=== PATIENT | male | born 1965 | race Caucasian/White ===

== ENCOUNTER → 2016-10-14 | Outpatient (CLI) | payer BC ==
[~2016-10-14] VITALS: Ht 170.2 cm; Wt 148.0 kg
[~2016-10-14] MED LIST: CEPH500C PO; COEN75CA PO; DXY100 PO; LBT/100 PO; MULTTAB58 PO; OMEG12006 PO; SULF800T23 PO; ZFRODT4HP SL
[2016-10-14 13:42] VITALS: BP 165/93; PULSE 73; Ht 170.2 cm; Wt 148.0 kg
== END | disposition home or self-care (01) ==
LOC: C.NEUR 13:10
PROVIDERS: ATTEND Internal Medicine Pulmonary Disease
DX: G47.33 Obstructive sleep apnea (adult) (pediatric) (principal); E66.9 Obesity, unspecified; G47.19 Other hypersomnia; R60.9 Edema, unspecified; K42.9 Umbilical hernia without obstruction or gangrene

== ENCOUNTER 2016-12-08 19:25 | Emergency (ER) | payer BC ==
[~2016-12-08] VITALS: Ht 167.6 cm; Wt 146.2 kg
[~2016-12-08 19:25] MED LIST changes: -CEPH500C PO; -DXY100 PO; -SULF800T23 PO; -ZFRODT4HP SL
[2016-12-08 19:30] VITALS: TEMP 38
[2016-12-08] MEDS ORDERED: IBUPROFEN 600 MG TAB PO STA (19:41)
[2016-12-08] MEDS ORDERED: ACETAMINOPHEN 325 MG TAB PO ONE (19:45)
[2016-12-08 19:59] VITALS: Ht 167.6 cm; Wt 146.2 kg
[2016-12-08] MEDS ORDERED: ONDANSETRON INJ 2 MG/ML 2 ML VIAL IV STA (20:03)
[2016-12-08 20:04] LABS: BASO % 0.1 %; BASO ABS # 0.01 K/uL (0-0.2); COMPLETE YES; EOS % 0.1 %; HEMATOCRIT 38.8 % (42-52); IG% 0.3 %; LYMPH % 9.8 %; LYMPH ABS # 1.27 K/uL (1.2-3.4); MEAN CELL VOLUME 87.2 fL (80-100); MEAN CORPUSCULAR HGB CONC 35.6 g/dl (32-36); MEAN PLATELET VOLUME 9.7 fL (7.4-10.4); MONO % 6.1 %; NEUT % 83.6 %; PLATELET COUNT 154 K/uL (130-400); RED BLOOD COUNT 4.45 M/uL (4.7-6.1); WHITE BLOOD COUNT 13.01 K/uL (4.8-10.8)
--- NOTE | 2016-12-08 20:05 | DIAGNOSTIC IMAGING REPORT ---
CHEST ONE VIEW PORTABLE CLINICAL HISTORY: Sepsis COMPARISON STUDY: 01/14/2013 FINDINGS: The cardiac and mediastinal contours are normal. There is no evidence of focal pulmonary consolidation. There is no evidence of failure. No pleural effusions are visualized.[ Increased density at the lung bases is felt to be secondary to overlying soft tissue attenuation. IMPRESSION: No active disease in the chest. Electronically signed by: Justin Gil M.D. 12/08/2016 8:03 PM Dictated Date/Time: 12/08/2016 8:03 PM
[2016-12-08] MEDS ORDERED: DXY100 PO (20:09)
[2016-12-08] MEDS ORDERED: ZFRODT4HP SL (20:09)
[2016-12-08 20:14] LABS: PARTIAL THROMBOPLASTIN RATIO 1.1; PROTHROMBIN TIME (PATIENT) 11.2 SECONDS (9.0-12.0)
[2016-12-08 20:26] LABS: CALCIUM 9.1 mg/dl (8.5-10.1); CREATININE 0.97 mg/dl (0.60-1.40); POTASSIUM 3.7 mmol/L (3.5-5.1)
[2016-12-08] MEDS ORDERED: SULFAMETHOXAZOLE/TRIMETHOPRIM DS 800/160MG TAB PO STA (20:28)
[2016-12-08] MEDS ORDERED: CEFAZOLIN SOD 1000MG/55 ML D5W IV STA (20:28)
[2016-12-08] MEDS ORDERED: SULF800T23 PO (21:01)
[2016-12-08] MEDS ORDERED: CEPH500C PO (21:01)
[2016-12-08] MEDS ORDERED: ONDANSETRON HOME PACK 4MG OD TAB PO ONE (21:15)
[2016-12-08 21:24] VITALS: BP 143/75; PULSE 86; O2SAT 94
--- NOTE | 2016-12-08 23:40 | EMERGENCY ROOM VISIT NOTE ---
History Report prepared by Yolie: Genevieve Chi Under the Supervision of: Dr. Abraham Prasad M.D. First contact with patient: 19:35 Chief Complaint: INFECTION Stated Complaint: RED SWOLLEN HOT LEG, FEVER- RIGHT History of Present Illness The patient is a 51 year old male who presents to the Emergency Room with complaints of a worsening infection of the right lower leg for the past 2 days. He does not remember bumping or injuring his leg. He did not notice any bug bites of his leg. The patient reports redness, warmth, and swelling to the right lower leg. He has had a fever. Today his temperature was 102.6. He is also feeling nauseated and took an antiemetic [employer]. He took 4 aspirin today for pain. The patient rates his current pain as an 8/10 in severity. He went to his PCP today for evaluation of his symptoms. He had an US that was negative for DVT , and he was sent to the ED for further evaluation. The patient denies vomiting , chest pain, and shortness of breath. He has a history of cellulitis in the right leg and was hospitalized for this issue in the past. He states his current symptoms are not as bad as his previous episode and that previously he had cellulitis all the way up into his thigh. Source of History: patient Onset: 2 days ago Position: leg (right) Symptom Intensity: 8/10 Quality: other (infection) Timing: worsening Modifying Factors (Relieving): anti-emetics, other (aspirin) Associated Symptoms: + fevers, + nausea, No SOB, No chest pain, No vomiting Note: The patient reports redness, warmth, and swelling to the right lower leg. Review of Systems See HPI for pertinent positives & negatives. A total of 10 systems reviewed and were otherwise negative. Past Medical & Surgical Medical Problems: (1) hand surgery (2) Hypertension (3) Sleep apnea Family History No pertinent history stated. Social History Smoking Status: Never Smoker Alcohol Use: none Housing Status: lives with family Occupation Status: employed Current/Historical Medications Scheduled Cephalexin Monohydrate (Keflex), 500 MG PO TID Coenzyme Q10 (Ubidecarenone) (Co Q-10), 1 CAP PO BID Doxycycline Hyclate (Doxycycline Hyclate), 100 MG PO BID Labetalol Hcl (Normodyne), 200 MG PO BID Multiple Vitamin (Multivitamin), 1 TAB PO BID Sulfa/Trimethoprim (Bactrim Ds 800MG/160MG), 1 TAB PO BID Scheduled PRN Ondansetron (Ondansetron Odt), 1 TAB SL Q8 PRN for Nausea or Vomiting Allergies Coded Allergies: Oxycodone (Unverified Allergy, Unknown, DIARRHEA,VOMITING,, 12/08/16) Physical Exam Vital Signs Date Time Temp Pulse Resp B/P Pulse Ox O2 Delivery O2 Flow Rate FiO2 12/08/16 21:24 86 18 143/75 94 Room Air 12/08/16 19:30 38.0 92 16 168/87 93 Room Air Physical Exam Constitutional: Vital signs reviewed. Eyes: Pupils are equal round reactive to light. Conjunctiva are noninjected. ENT: Pharynx is clear without erythema or exudate. Mucous membranes are moist. Neck supple without meningeal signs. Respiratory: Clear to auscultation bilaterally. Breath sounds are equal bilaterally. Cardiovascular: Regular rate and rhythm. No rubs or gallops. GI: Soft, nondistended and nontender. Bowel sounds are present. Musculoskeletal: Right leg has erythema and increased warmth to the anterior right lower leg below the knee, does not involve the knee or the ankle. No fluctuance or induration. Integumentary: As above. Neurological: The patient is awake and alert. No focal deficits. Psychiatric: Normal affect. Medical Decision & Procedures ER Provider Diagnostic Interpretation: Radiology results as stated below per my review and the radiologist's interpretation: CHEST ONE VIEW PORTABLE CLINICAL HISTORY: Sepsis COMPARISON STUDY: 01/14/2013 FINDINGS: The cardiac and mediastinal contours are normal. There is no evidence of focal pulmonary consolidation. There is no evidence of failure. No pleural effusions are visualized.[ Increased density at the lung bases is felt to be secondary to overlying soft tissue attenuation. IMPRESSION: No active disease in the chest. Electronically signed by: Justin Gil M.D. 12/08/2016 8:03 PM Dictated Date/Time: 12/08/2016 8:03 PM Laboratory Results 12/08/16 19:38 Red Blood Count 4.45, Mean Corpuscular Volume 87.2, Mean Corpuscular Hemoglobin 31.0, Mean Corpuscular Hemoglobin Concent 35.6, Mean Platelet Volume 9.7, Neutrophils (%) (Auto) 83.6, Lymphocytes (%) (Auto) 9.8, Monocytes (%) (Auto) 6.1, Eosinophils (%) (Auto) 0.1, Basophils (%) (Auto) 0.1, Neutrophils # (Auto) 10.89, Lymphocytes # (Auto) 1.27, Monocytes # (Auto) 0.79, Eosinophils # (Auto) 0.01, Basophils # (Auto) 0.01 12/08/16 19:38 Test 12/08/16 19:38 12/08/16 19:53 White Blood Count 13.01 K/uL (4.8-10.8) Red Blood Count 4.45 M/uL (4.7-6.1) Hemoglobin 13.8 g/dL (14.0-18.0) Hematocrit 38.8 % (42-52) Mean Corpuscular Volume 87.2 fL (80-100) Mean Corpuscular Hemoglobin 31.0 pg (25-34) Mean Corpuscular Hemoglobin Concent 35.6 g/dl (32-36) Platelet Count 154 K/uL (130-400) Mean Platelet Volume 9.7 fL (7.4-10.4) Neutrophils (%) (Auto) 83.6 % Lymphocytes (%) (Auto) 9.8 % Monocytes (%) (Auto) 6.1 % Eosinophils (%) (Auto) 0.1 % Basophils (%) (Auto) 0.1 % Neutrophils # (Auto) 10.89 K/uL (1.4-6.5) Lymphocytes # (Auto) 1.27 K/uL (1.2-3.4) Monocytes # (Auto) 0.79 K/uL (0.11-0.59) Eosinophils # (Auto) 0.01 K/uL (0-0.5) Basophils # (Auto) 0.01 K/uL (0-0.2) RDW Standard Deviation 42.0 fL (36.4-46.3) RDW Coefficient of Variation 12.9 % (11.5-14.5) Immature Granulocyte % (Auto) 0.3 % Immature Granulocyte # (Auto) 0.04 K/uL (0.00-0.02) Prothrombin Time 11.2 SECONDS (9.0-12.0) Prothromb Time International Ratio 1.0 (0.9-1.1) Activated Partial Thromboplast Time 28.1 SECONDS (21.0-31.0) Partial Thromboplastin Ratio 1.1 Anion Gap 7.0 mmol/L (3-11) Est Creatinine Clear Calc Drug Dose 120.5 ml/min Estimated GFR () 102.9 Estimated GFR (Non- 88.8 BUN/Creatinine Ratio 13.0 (10-20) Calcium Level 9.1 mg/dl (8.5-10.1) Total Bilirubin 0.9 mg/dl (0.2-1) Aspartate Amino Transf (AST/SGOT) 26 U/L (15-37) Alanine Aminotransferase (ALT/SGPT) 45 U/L (12-78) Alkaline Phosphatase 64 U/L (45-117) Total Protein 7.5 gm/dl (6.4-8.2) Albumin 3.8 gm/dl (3.4-5.0) Globulin 3.7 gm/dl (2.5-4.0) Albumin/Globulin Ratio 1.0 (0.9-2) Bedside Lactic Acid Venous 0.61 mmol/L (0.90-1.70) Laboratory results as reviewed by me. Medications Administered Medications (Trade) Dose Ordered Sig/Kisha Route Start Time Stop Time Status Last Admin Dose Admin Acetaminophen (Tylenol Tab) 650 mg ONE ONCE PO 12/08/16 19:45 12/08/16 19:46 DC 12/08/16 20:32 650 MG Ibuprofen (Motrin Tab) 600 mg NOW STAT PO 12/08/16 19:41 12/08/16 19:43 DC 12/08/16 20:31 600 MG Ondansetron HCl (Zofran Inj) 4 mg NOW STAT IV 12/08/16 20:03 12/08/16 20:04 DC 12/08/16 20:18 4 MG Cefazolin Sodium (Ancef 1000mg/55 ml D5W) 1,000 mg NOW STAT IV 12/08/16 20:28 12/08/16 20:30 DC 12/08/16 20:34 1,000 MG Trimethoprim/ Sulfamethoxazole (Septra Ds 800/ 160MG Tab) 1 tab NOW STAT PO 12/08/16 20:28 12/08/16 20:30 DC 12/08/16 20:35 1 TAB Ondansetron HCl (ZOFRAN ODT 4MG Home Pack) 1 [facility] UD ONCE PO 12/08/16 21:15 12/08/16 21:16 DC 12/08/16 21:18 1 [facility] ED Course 1935: The patient was evaluated in room C12B. A complete history and physical exam was performed. 1940: Ibuprofen 600 mg PO 1944: Tylenol tab 650 mg PO 2002: Zofran 4 mg IV 2022: I updated the patient at this time. He was just receiving his medications. 2027: Trimethoprim/Sulfamethoxazole 1 tab PO, Cefazolin Sodium 1000 mg IV 2102: I reassessed the patient at this time. His stomach feels upset because he took the aspirin and Motrin on an empty stomach and he still feels like he has a fever. He just got the rest of his medications. I discussed the results and treatment plan with the patient. I answered all pertaining questions that he had. He expressed understanding and verbalized agreement. The patient will be discharged home. 2114: Zofran 4 mg PO 1 [facility] Medical Decision This is a 51-year-old male presents with fever and leg pain. Differential diagnosis includes cellulitis, myositis, lymphangitis, sepsis, SIRS. I did perform a limited focused review of portions of the patient's old chart on the electronic medical record. The patient had an US at 2 pm today which showed no DVT but there is right inguinal lymphadenopathy. I did evaluate the patient as noted above. IV access was established. I did treat the patient with Tylenol and ibuprofen. He is also given Zofran IV. I did order and personally review the patient's chest x-ray as described above. Blood cultures were obtained. I did order and review the patient's blood work as noted in the electronic medical record. His white blood cell count is elevated. Lactic acid is not elevated. The patient does not appear septic. I did treat him with Ancef IV. He was also given Bactrim. I did discuss the test results with the patient. At this time there is no indication for hospitalization. He was advised, however, to follow up within 48 hours for recheck with his regular physician. He was discharged with a prescription for Bactrim and Keflex and given return instructions as outlined below. Impression Primary Impression: Cellulitis of right leg Scribe Attestation The scribe's documentation has been prepared under my direct and personally reviewed by me in its entirety. I confirm that the note above accurately reflects all work, treatment, procedures, and medical decision making performed by me. Departure Information Dispostion Home / Self-Care Prescriptions Sulfa/Trimethoprim (Bactrim Ds 800MG/160MG) Tab 1 TAB PO BID for 14 Days, #28 TAB Prov: Abraham Prasad M.D. 12/08/16 Cephalexin Monohydrate (Keflex) 500 Mg Cap 500 MG PO TID for 14 Days, #42 CAP Prov: Abraham Prasad M.D. 12/08/16 Referrals Angela Mederos PA-C (PCP) Forms HOME CARE DOCUMENTATION FORM, IMPORTANT VISIT INFORMATION, WORK / SCHOOL INSTRUCTIONS Patient Instructions Cellulitis Dc, My [facility] Additional Instructions You have been examined and treated today on an emergency basis only. This is not a substitute for, or an effort to provide, complete comprehensive medical care. It is impossible to recognize and treat all injuries or illnesses in a single emergency department visit. It is therefore important that you follow up closely with your physician within 48 hours. Call as soon as possible for an appointment. Return for worsening symptoms or if you develop vomiting, chest pain, shortness of breath or any other concerning symptoms.
== END 2016-12-08 21:26 | disposition home or self-care (01) ==
LOC: C.EDB 19:27 → C.EDC 21:26
DX: L03.115 Cellulitis of right lower limb (principal); I10 Essential (primary) hypertension; G47.30 Sleep apnea, unspecified; Z98.890 Other specified postprocedural states; Z79.899 Other long term (current) drug therapy; Z88.5 Allergy status to narcotic agent

== ENCOUNTER → 2016-12-08 | Outpatient (CLI) | payer BC ==
--- NOTE | 2016-12-08 14:15 | DIAGNOSTIC IMAGING REPORT ---
RIGHT LOWER EXTREMITY VENOUS DOPPLER HISTORY: R LOWER EXTREMITY EDEMA Right COMPARISON STUDY: None. FINDINGS: There is normal compressibility, flow, and augmentation within the right lower extremity deep venous system. Enlarged right inguinal lymph nodes measuring up to 4.0 x 1.0 cm. IMPRESSION: No DVT within the right lower extremity. Right inguinal lymphadenopathy. Electronically signed by: Neal Douglas M.D. 12/08/2016 2:13 PM Dictated Date/Time: 12/08/2016 2:12 PM
== END | disposition home or self-care (01) ==
LOC: C.ULTRBC 13:41
PROVIDERS: ATTEND Physician Assistant
DX: R60.0 Localized edema (principal); R21 Rash and other nonspecific skin eruption; R59.0 Localized enlarged lymph nodes

== ENCOUNTER 2016-12-12 10:38 | Emergency (ER) | payer BC ==
[~2016-12-12] VITALS: Ht 167.6 cm; Wt 144.3 kg
[~2016-12-12 10:38] MED LIST changes: +CEPH500C PO; +DXY100 PO; -OMEG12006 PO; +SULF800T23 PO; +ZFRODT4HP SL
[2016-12-12 10:44] VITALS: BP 130/75; PULSE 73; TEMP 36.6; O2SAT 97; Ht 167.6 cm; Wt 144.3 kg
--- NOTE | 2016-12-12 11:00 | EMERGENCY ROOM VISIT NOTE ---
ED Visit Note First contact with patient: 10:49 CHIEF COMPLAINT: Recheck cellulitis right leg HISTORY OF PRESENT ILLNESS: This 51-year-old male presents the ER for recheck for right lower leg cellulitis. The patient is taking the Keflex and Bactrim as prescribed. He states that the front portion of his leg is much improved but the posterior region is still red. He states it is feeling better. He has an appointment scheduled for his regular follow-up with his family doctor next Thursday. REVIEW OF SYSTEMS: 6 system review was performed and was negative unless stated otherwise in history of present illness. PMH: No significant prior leg injury. Unchanged her prior ER visit SOCIAL HISTORY: Patient lives with his PHYSICAL EXAM: Vital Signs: Were reviewed Reviewed Nurse's notes. GENERAL: 51- year-old obese white male appears in no acute distress. MENTAL STATUS: Alert, oriented, and cooperative. RIGHT LOWER LEG: Patient has erythema on the posterior aspect of the leg but does not extend past the marked areas from prior ER visit. It does not involve the knee or the ankle. Anterior aspect with minimal erythema much improved from last office visit. The patient does have 2+ pitting edema. LEFT LOWER LE+ pitting edema. No erythema noted. EMERGENCY DEPARTMENT COURSE: The patient was evaluated. EMR was reviewed. Blood cultures were negative. The patient was informed of the blood culture results. The patient was discharged home in stable condition. DIAGNOSIS: Right lower leg cellulitis. DISCHARGE INSTRUCTIONS: Continue current treatment. Continue Bactrim and Keflex as prescribed. Keep scheduled appointment with your family physician next week. Also recommend informing your physician that even though you're resting while having the cellulitis she were still having edema in both her lower legs. Problem List Medical Problems: (1) hand surgery Status: Resolved (2) Hypertension Status: Chronic (3) Sleep apnea Status: Chronic Current/Historical Medications Scheduled Cephalexin Monohydrate (Keflex), 500 MG PO TID Coenzyme Q10 (Ubidecarenone) (Co Q-10), 1 CAP PO BID Doxycycline Hyclate (Doxycycline Hyclate), 100 MG PO BID Labetalol Hcl (Normodyne), 200 MG PO BID Multiple Vitamin (Multivitamin), 1 TAB PO BID Sulfa/Trimethoprim (Bactrim Ds 800MG/160MG), 1 TAB PO BID Scheduled PRN Ondansetron (Ondansetron Odt), 1 TAB SL Q8 PRN for Nausea or Vomiting Allergies Coded Allergies: Oxycodone (Unverified Allergy, Unknown, DIARRHEA,VOMITING,, 12/08/16) Vital Signs Date Time Temp Pulse Resp B/P Pulse Ox O2 Delivery O2 Flow Rate FiO2 12/12/16 10:44 36.6 73 18 130/75 97 Room Air Departure Information Referrals Angela Mederos PA-C (PCP) Patient Instructions My [facility]
== END 2016-12-12 11:18 | disposition home or self-care (01) ==
LOC: C.EDB 10:39 → C.EDC 11:18
DX: L03.115 Cellulitis of right lower limb (principal); I10 Essential (primary) hypertension; G47.30 Sleep apnea, unspecified; Z98.890 Other specified postprocedural states; Z79.899 Other long term (current) drug therapy; Z88.5 Allergy status to narcotic agent

== ENCOUNTER → 2016-12-23 | Outpatient (CLI) | payer BC ==
[~2016-12-23] VITALS: Ht 167.6 cm; Wt 114.5 kg
[~2016-12-23] MED LIST changes: -DXY100 PO
[2016-12-23 15:48] VITALS: BP 118/81; PULSE 71; Ht 167.6 cm; Wt 114.5 kg
== END | disposition home or self-care (01) ==
LOC: C.NEUR 14:29
PROVIDERS: ATTEND Internal Medicine Pulmonary Disease
DX: G47.33 Obstructive sleep apnea (adult) (pediatric) (principal); E66.9 Obesity, unspecified; I10 Essential (primary) hypertension

== ENCOUNTER → 2017-12-29 | Outpatient (CLI) | payer BC ==
[~2017-12-29] VITALS: Ht 167.6 cm; Wt 319.2 kg
[~2017-12-29] MED LIST changes: -CEPH500C PO; -COEN75CA PO; +FERR1TAB62 PO; +FURO-85 PO; -SULF800T23 PO; +VITA80005 PO
[2017-12-29 16:30] VITALS: BP 151/87; PULSE 70; Ht 167.6 cm; Wt 319.2 kg
== END | disposition home or self-care (01) ==
LOC: C.NEUR 14:28
PROVIDERS: ATTEND Internal Medicine Pulmonary Disease
DX: G47.33 Obstructive sleep apnea (adult) (pediatric) (principal); G47.19 Other hypersomnia; E66.9 Obesity, unspecified; R60.9 Edema, unspecified

== ENCOUNTER 2020-02-17 11:29 | Inpatient (IN) ==
--- NOTE | 2020-02-17 12:03 | Emergency Department Note ---
History of Present Illness General Chief complaint: Abdominal Pain Stated complaint: ABD PAIN, BLOATING Time Seen by Provider: 02/17/20 11:45 Source: patient Mode of arrival: ambulatory Limitations: no limitations History of Present Illness Maximum Pain Intensity: 9 This patient comes in after having abdominal pain and distention. He says it feels like he has stomach gas and bloating since yesterday. He has had some emesis. He did have a bowel movement yesterday. He also passed some gas from below today and so that helped. Normal urine output. No chest pain. He does have some chronic shortness of breath he attributes to being obese. No testicular swelling or masses. He feels like his bellybutton is more swollen and tender than typical. It does hurt in his back at times. No history of similar complaints. He does have lower extreme edema chronically more on the right which is chronic for him. Home Medications Home Medications Medication Instructions Recorded Confirmed Type furosemide 20 mg tablet 20 mg PO DAILY tab 07/07/19 02/17/20 History labetalol 100 mg tablet 200 mg PO BID tab 07/07/19 02/17/20 History aspirin [Aspir-81] 81 mg PO QAM 02/17/20 02/17/20 History multivitamin 1 tab PO QAM 02/17/20 02/17/20 History Allergies Allergy/AdvReac Type Severity Reaction Status Date / Time Bactrim Allergy Intermediate RASH Unverified 10/22/17 09:50 sulfamethoxazole Allergy Intermediate RASH Unverified 02/17/20 14:20 trimethoprim Allergy Intermediate RASH Unverified 02/17/20 14:20 cephalexin Allergy Mild RASH Unverified 02/17/20 14:20 oxycodone Allergy Unknown DIARRHEA,VO Unverified 02/17/20 14:20 MITING, Past Med/Surg History Medical History Cellulitis of right leg (Inactive) Surgical History H/O colonoscopy Family History Other Colorectal cancer Coronary heart disease Social History (Updated 02/17/20 @ 15:02 by Georgette Robbins DO) Preferred Language: Jamaican marital status: Current Living Situation: Spouse current occupational status: employed Feels Safe at Home: Yes Smoking Status: Former smoker Hx Alcohol Use: No Hx Substance Use: No Review of Systems A total of 10 systems reviewed and were otherwise negative Physical Exam Vital Signs Vital Signs - 24 hr 02/17/20 11:41 02/17/20 12:08 02/17/20 12:10 Temperature 36.8 C Temperature Source Oral Pulse Rate 76 73 74 Pulse Rate [Right Finger] Pulse Rate from SpO2 Sensor 74 Pulse Strength [Right Finger] Respiratory Rate 17 22 21 Respiratory Effort / Characteristics Respiratory Depth Respiratory Pattern Blood Pressure 142/67 H 150/89 H Blood Pressure [Right Arm] Blood Pressure Mean 92 121 Blood Pressure Mean [Right Arm] Blood Pressure Position [Right Arm] Pulse Oximetry 96 97 96 Oxygen Delivery Method Room Air Room Air Sepsis Recent Fever Within 48 Hours No Sepsis New/Unexplained Change in Mental Status No Sepsis Action Taken by Nursing No Action Required 02/17/20 12:13 02/17/20 12:30 02/17/20 12:31 Temperature Temperature Source Pulse Rate 71 72 73 Pulse Rate [Right Finger] Pulse Rate from SpO2 Sensor 72 72 72 Pulse Strength [Right Finger] Respiratory Rate 22 22 21 Respiratory Effort / Characteristics Respiratory Depth Respiratory Pattern Blood Pressure 166/81 H Blood Pressure [Right Arm] Blood Pressure Mean 90 Blood Pressure Mean [Right Arm] Blood Pressure Position [Right Arm] Pulse Oximetry 97 96 96 Oxygen Delivery Method Sepsis Recent Fever Within 48 Hours Sepsis New/Unexplained Change in Mental Status Sepsis Action Taken by Nursing 02/17/20 13:13 02/17/20 13:30 02/17/20 13:31 Temperature Temperature Source Pulse Rate 78 74 73 Pulse Rate [Right Finger] Pulse Rate from SpO2 Sensor Pulse Strength [Right Finger] Respiratory Rate 20 22 23 Respiratory Effort / Characteristics Respiratory Depth Respiratory Pattern Blood Pressure 151/81 H 147/83 H Blood Pressure [Right Arm] Blood Pressure Mean 91 93 Blood Pressure Mean [Right Arm] Blood Pressure Position [Right Arm] Pulse Oximetry Oxygen Delivery Method Sepsis Recent Fever Within 48 Hours Sepsis New/Unexplained Change in Mental Status Sepsis Action Taken by Nursing 02/17/20 14:19 02/17/20 14:20 02/17/20 14:30 Temperature Temperature Source Pulse Rate 70 73 71 Pulse Rate [Right Finger] Pulse Rate from SpO2 Sensor 70 74 69 Pulse Strength [Right Finger] Respiratory Rate 24 19 19 Respiratory Effort / Characteristics Respiratory Depth Respiratory Pattern Blood Pressure 156/81 H 159/78 H Blood Pressure [Right Arm] Blood Pressure Mean 100 114 Blood Pressure Mean [Right Arm] Blood Pressure Position [Right Arm] Pulse Oximetry 96 96 92 Oxygen Delivery Method Sepsis Recent Fever Within 48 Hours Sepsis New/Unexplained Change in Mental Status Sepsis Action Taken by Nursing 02/17/20 14:31 02/17/20 15:00 02/17/20 15:45 Temperature 36.8 C Temperature Source Oral Pulse Rate 71 70 Pulse Rate [Right Finger] 76 Pulse Rate from SpO2 Sensor 70 70 Pulse Strength [Right Finger] Normal Respiratory Rate 20 22 18 Respiratory Effort / Characteristics Non-Labored Spontaneous Respiratory Depth Normal Respiratory Pattern Regular Blood Pressure 156/103 H Blood Pressure [Right Arm] 146/78 H Blood Pressure Mean 117 Blood Pressure Mean [Right Arm] 100 Blood Pressure Position [Right Arm] Sitting Pulse Oximetry 93 96 95 Oxygen Delivery Method Room Air Sepsis Recent Fever Within 48 Hours Sepsis New/Unexplained Change in Mental Status Sepsis Action Taken by Nursing General: Well developed well nourished middle-aged male who appears uncomfortable but in no acute respiratory distress, breathing comfortably on room air. Normal speech HEENT: Normal cephalic atraumatic. Pupils are equal round and reactive to light. Extraocular movements are intact. Oropharynx is pink with moist mucous membranes. No swelling of the mouth lips or tongue. Neck: Supple with a midline trachea. No meningeal signs or stiffness, no JVD or bruits. No Stridor. Chest: Clear to auscultation bilaterally. No wheezes or rhonchi. No increased work of breathing. Heart: Regular rate and rhythm without murmurs or gallops. Abdomen: Soft, distended and diffusely tender Without rebound guarding or rigidity. He has some mild tenderness around his umbilicus as well with minimal swelling. N redness or warmth. Extremities: No cyanosis clubbing or edema. No calf tenderness or assymetry Spine/Back. Non tender to palpation. No CVA tenderness Skin: Good turgor without rashes. Neurologic exam: Cranial nerves two through 12 are intact. Motor and sensation are intact and symmetrical throughout. Course Administered Medications Sodium Chloride (Nss) 500 mls @ 125 mls/hr IV .Q4H UGO Stop: 03/18/20 13:59 Last Admin: 02/17/20 15:27 Dose: 125 mls/hr Documented by: [id number] Discontinued Medications Sodium Chloride (Nss 1000ml) 500 mls @ 999 mls/hr IV .Q31M ONE Stop: 02/17/20 14:17 Last Infusion: 02/17/20 15:02 Dose: 0 mls/hr Documented by: [id number] Admin: 02/17/20 14:20 Dose: 999 mls/hr Documented by: [id number] Piperacillin Sod/Tazobactam Sod (Zosyn) 4.5 gm in 120 mls @ 240 mls/hr IV NOW ONE Stop: 02/17/20 15:00 Last Admin: 02/17/20 15:27 Dose: 240 mls/hr Documented by: [id number] Morphine Sulfate (Morphine Sulfate) 2 mg IV NOW STA Stop: 02/17/20 13:48 Last Admin: 02/17/20 14:22 Dose: 2 mg Documented by: [id number] Ondansetron HCl (Zofran) 4 mg IV NOW STA Stop: 02/17/20 13:48 Last Admin: 02/17/20 14:21 Dose: 4 mg Documented by: [id number] Medical Decision Making Differential Diagnosis Bowel obstruction, constipation, infection, hernia, aneurysm, CHF, electrolyte or metabolic abnormalities, UTI, kidney stone Medical Records Attestation: I reviewed the patient's medical records. Home Medications Current Medication List: was personally reviewed by me Laboratory Data Attestation: I reviewed the patient's lab results. Result diagrams: 02/17/20 12:10 02/17/20 12:10 Lab Results 02/17/20 02/17/20 02/17/20 Range/Units 12:10 12:10 12:10 WBC 19.07 H (4.8-10.8) K/uL RBC 4.84 (4.7-6.1) M/uL Hgb 15.0 (14.0-18.0) g/dL Hct 42.9 (42-52) % MCV 88.6 (80-100) fL MCH 31.0 (25-34) pg MCHC 35.0 (32-36) g/dL RDW Std Deviation 42.7 (36.4-46.3) fL RDW Coeff of Josue 13.2 (11.5-14.5) % Plt Count 172 (130-400) K/uL MPV 10.2 (7.4-10.4) fL Immature Gran % (Auto) 0.4 % Neut % (Auto) 86.6 % Lymph % (Auto) 8.4 % [place] % (Auto) 4.4 % Eos % (Auto) 0.1 % Baso % (Auto) 0.1 % Neut # (Auto) 16.53 H (1.4-6.5) K/uL Lymph # (Auto) 1.61 (1.2-3.4) K/uL [place] # (Auto) 0.83 H (0.11-0.59) K/uL Eos # (Auto) 0.02 (0-0.5) K/uL Baso # (Auto) 0.01 (0-0.2) K/uL Immature Gran # (Auto) 0.07 H (0.00-0.02) K/uL Sodium 135 L (136-145) mmol/L Potassium 3.8 (3.5-5.1) mmol/L Chloride 102 (98-107) mmol/L Carbon Dioxide 25 (21-32) mmol/L Anion Gap 8.0 (3-11) BUN 18 (7-18) mg/dl Creatinine 0.87 (0.6-1.4) mg/dl Est Cr Clr Drug Dosing 124.4 ml/min Est GFR ( Amer) 111.8 Est GFR (Non-Af Amer) 96.5 BUN/Creatinine Ratio 20.2 H (10-20) Glucose 131 H (70-99) mg/dl Calcium 9.1 (8.5-10.1) mg/dl Total Bilirubin 1.6 H (0.2-1) mg/dl AST 112 H (15-37) U/L ALT 273 H (12-78) U/L Alkaline Phosphatase 94 (45-117) U/L Total Protein 7.6 (6.4-8.2) gm/dl Albumin 3.8 (3.4-5.0) gm/dl Globulin 3.8 (2.5-4.0) gm/dl Albumin/Globulin Ratio 1.0 (0.9-2) Lipase 4524 H (73-393) U/L Urine Color Yellow Urine Appearance Clear (Clear) Urine pH 5.5 (4.5-7.5) Ur Specific [place] 1.016 (1.000-1.030) Urine Protein Negative (Negative) Urine Glucose (UA) Negative (Negative) Urine Ketones Negative (Negative) Urine Blood Negative (Negative) Urine Nitrite Negative (Negative) Urine Bilirubin Negative (Negative) Urine Urobilinogen Negative (Negative) Ur Leukocyte Esterase Negative (Negative) COVID-19 PCR (Negative) 02/17/20 Range/Units 15:28 WBC (4.8-10.8) K/uL RBC (4.7-6.1) M/uL Hgb (14.0-18.0) g/dL Hct (42-52) % MCV (80-100) fL MCH (25-34) pg MCHC (32-36) g/dL RDW Std Deviation (36.4-46.3) fL RDW Coeff of Josue (11.5-14.5) % Plt Count (130-400) K/uL MPV (7.4-10.4) fL Immature Gran % (Auto) % Neut % (Auto) % Lymph % (Auto) % [place] % (Auto) % Eos % (Auto) % Baso % (Auto) % Neut # (Auto) (1.4-6.5) K/uL Lymph # (Auto) (1.2-3.4) K/uL [place] # (Auto) (0.11-0.59) K/uL Eos # (Auto) (0-0.5) K/uL Baso # (Auto) (0-0.2) K/uL Immature Gran # (Auto) (0.00-0.02) K/uL Sodium (136-145) mmol/L Potassium (3.5-5.1) mmol/L Chloride (98-107) mmol/L Carbon Dioxide (21-32) mmol/L Anion Gap (3-11) BUN (7-18) mg/dl Creatinine (0.6-1.4) mg/dl Est Cr Clr Drug Dosing ml/min Est GFR ( Amer) Est GFR (Non-Af Amer) BUN/Creatinine Ratio (10-20) Glucose (70-99) mg/dl Calcium (8.5-10.1) mg/dl Total Bilirubin (0.2-1) mg/dl AST (15-37) U/L ALT (12-78) U/L Alkaline Phosphatase (45-117) U/L Total Protein (6.4-8.2) gm/dl Albumin (3.4-5.0) gm/dl Globulin (2.5-4.0) gm/dl Albumin/Globulin Ratio (0.9-2) Lipase (73-393) U/L Urine Color Urine Appearance (Clear) Urine pH (4.5-7.5) Ur Specific [place] (1.000-1.030) Urine Protein (Negative) Urine Glucose (UA) (Negative) Urine Ketones (Negative) Urine Blood (Negative) Urine Nitrite (Negative) Urine Bilirubin (Negative) Urine Urobilinogen (Negative) Ur Leukocyte Esterase (Negative) COVID-19 PCR NEGATIVE (Negative) Imaging Data Radiologist's Impression: CT abd pelvis wo con CT DOSE: 294.19 mGy.cm HISTORY: Pain. Hemoptysis. rt lower abd pain, eval for hernia. left hip bruis TECHNIQUE: Multiaxial CT images of the abdomen and pelvis were performed without contrast. A dose lowering technique was utilized adhering to the principles of ALARA. COMPARISON STUDY: 12/23/2019 FINDINGS: Small bilateral pleural effusions. Superimposed interstitial infiltrat e medial aspect left base as well as lingula. Moderate stable cardiomegaly. Mild sclerotic appearance to the liver. Mild abdominal and pelvic ascites. This is diminished from the prior study. Kidneys are considered negative for hydronephrosis. Mild infiltrative change of the omentum and mesentery felt to be secondary to minimal scattered ascites. Several renal cysts and are hyperdense cysts. Bowel pattern is nonobstructive. The bladder is midline. There is a moderate rectal fecal impaction. There are findings of mild body wall anasarca. IMPRESSION: 1. Bilateral pleural effusions with superimposed left basilar as well as lingular infiltrative change. 2. Mild stable cardiomegaly. 3. Cirrhotic liver. 4. Mild scattered ascites diminished from the prior study. 5. Nonobstructive bowel pattern. 6. Moderate rectal fecal impaction. 7. Mild body wall anasarca. Blood Pressure Blood Pressure Findings: Elevated blood pressure Blood Pressure Disposition: elevated BP felt to be situational MDM Narrative This patient comes in as described above. He is having abdominal pain and bloating since yesterday. He appears uncomfortable. His abdomen is diffusely tender. It is not red or warm. He does have some mild lower extremity edema which seems to be mostly chronic. IV asked established and blood work was obtained. I also ordered a CAT scan of his abdomen and pelvis. He does not elevated white count of 19,000. He also has elevated lipase of 4524. LFTs are mildly elevated. CAT scan shows acute pancreatitis there is a small amount of fluid but no drainable collection. He does have several gallstones, one of the cystic duct and 0ne around the pancreas. I suspect based on this he does have gallstone pancreatitis. In light of this, I have consulted the [facility] as they are on-call for unassigned. Tristan did come and see the patient in the emergency department and they are going to take him for ERCP. I did also consult Dr. Robbins who is going to be the hospitalist taking care of this patient. We did give him some IV fluids as well as IV Zosyn 4.5 g. He also received morphine 2 mg IV and Zofran 4 mg IV for pain and nausea management and was kept n.p.o. while in the emergency department. He will be admitted for treatment and evaluation of his pancreatitis really likely related to gallstones. Impression & Plan Acute gallstone pancreatitis, Abdominal pain, Acute pancreatitis, Abdominal bloating, Edema of both lower extremities Discharge Plan Visit Data *Final* Discharge Date/Time: 02/17/20 15:28 Chief Complaint: Abdominal Pain Stated Complaint: ABD PAIN, BLOATING ED Provider: Tico Shaw Discharge Problem: Acute gallstone pancreatitis, Abdominal pain, Acute pancreatitis, Abdominal bloating, Edema of both lower extremities Patient Disposition: Still a Patient Discharge Instructions Interventions: ED Discharge Assessment Last Done: 02/17/20 15:28 Discharge Problem: Abdominal pain Qualifiers: Abdominal location: generalized Qualified Code(s): R10.84 - Generalized abdominal pain Acute pancreatitis Qualifiers: Pancreatitis type: biliary Acute pancreatitis complication: unspecified Qualified Code(s): K85.10 - Biliary acute pancreatitis without necrosis or infection
[2020-02-17 12:24] LABS: Basophils # (auto) 0.01 K/uL (0-0.2); Basophils % (auto) 0.1 %; Eosinophils # (auto) 0.02 K/uL (0-0.5); Eosinophils % (auto) 0.1 %; Hematocrit (blood only) 42.9 % (42-52); Immature Granulocytes # (auto) 0.07 K/uL (0.00-0.02); Immature Granulocytes % (auto) 0.4 %; Lymphocytes # (auto) 1.61 K/uL (1.2-3.4); Lymphocytes % (auto) 8.4 %; Mean Corpuscular Volume 88.6 fL (80-100); Mean Platelet Volume 10.2 fL (7.4-10.4); Monocytes # (auto) 0.83 K/uL (0.11-0.59); Monocytes % (auto) 4.4 %; Neutrophils # (auto) 16.53 K/uL (1.4-6.5); Neutrophils % (auto) 86.6 %; Platelet Count 172 K/uL (130-400); RDW Coefficient of Variation 13.2 % (11.5-14.5); RDW Standard Deviation 42.7 fL (36.4-46.3); Red Blood Count 4.84 M/uL (4.7-6.1); White Blood Count 19.07 K/uL (4.8-10.8)
[2020-02-17 12:44] LABS: Albumin Level 3.8 gm/dl (3.4-5.0); BUN Creatinine Ratio 20.2 (10-20); Calcium 9.1 mg/dl (8.5-10.1); Creatinine Clr Calc Pharmacy 124.4 ml/min; Est GFR (African American) 111.8; Est GFR (Non-African American) 96.5; Potassium 3.8 mmol/L (3.5-5.1)
[2020-02-17 12:47] LABS: Bilirubin,Total 1.6 mg/dl (0.2-1); Globulin 3.8 gm/dl (2.5-4.0); Total Protein 7.6 gm/dl (6.4-8.2)
[2020-02-17 13:00] LABS: Appearance Urine Clear (Clear); Bilirubin Urine Negative (Negative); Blood Urine Negative (Negative); Color Urine Yellow; Glucose Urine UA Negative (Negative); Ketones Urine Negative (Negative); Leukocyte Esterase Urine Negative (Negative); Nitrite Urine Negative (Negative); Protein Urine Negative (Negative); Specific Gravity Urine 1.016 (1.000-1.030); Urobilinogen Urine Negative (Negative); pH Urine 5.5 (4.5-7.5)
--- NOTE | 2020-02-17 13:35 | CT Scan Report ---
CT SCAN OF THE ABDOMEN AND PELVIS WITHOUT IV CONTRAST CLINICAL HISTORY: Generalized abdominal pain. COMPARISON STUDY: No priors. TECHNIQUE: CT scan of the abdomen and pelvis is performed from the lung bases to the proximal femora. Images are reviewed in the axial, sagittal, and coronal planes. IV contrast was not administered for this examination. Note that the examination was performed in suboptimal fashion without oral and IV contrast. A dose lowering technique was utilized adhering to the principles of ALARA. CT DOSE: 1773.02 mGy.cm FINDINGS: Lung bases: The heart is normal in size and without pericardial effusion. There is a small hiatal her skylar. Atelectasis is noted at the lung bases. No airspace consolidation or pleural effusion is identif ied. Liver: The unenhanced liver is enlarged, measuring 21.5 cm in length. The liver demonstrates diffusel y diminished attenuation consistent with hepatic steatosis. There is no intrahepatic biliary ductal d ilatation. Gallbladder: The gallbladder is mildly distended. There is no clear CT evidence of acute cholecystiti s. A 9 mm calcified gallstone is seen in the cystic duct on image #177. A 5 mm calcified gallstone is noted in the distal common bile duct on image #218. Spleen: Normal in size and attenuation. Pancreas: The pancreas is mildly edematous. There is peripancreatic stranding and fluid, with fluid s een tracking inferiorly in the retroperitoneal space and paracolic gutters. There is no organized per ipancreatic fluid collection identified. Adrenal glands: Unremarkable. Kidneys: The unenhanced kidneys are normal in size and without hydronephrosis. There are no renal jenna culi identified. There is no evidence of contour deforming renal mass lesion. Abdominal vasculature: The abdominal aorta is normal in course and caliber. Bowel: There is no bowel obstruction. The appendix is normal as visualized. Peritoneum: There is no intraperitoneal free air. Trace free fluid is noted in the pelvis. There is a large fat-containing umbilical hernia. Lymphadenopathy: None. Pelvic viscera: The bladder, prostate, and seminal vesicles are normal as imaged. There are left larg er than right inguinal hernias. Trace fluid is noted within the left inguinal hernia. Skeletal structures: There is mild lumbosacral spondylosis. No lytic or blastic lesions are seen. IMPRESSION: 1. Findings are consistent with acute pancreatitis. 2. Fluid is seen tracking inferiorly within the retroperitoneum. No organized peripancreatic fluid co llection is identified. 3. There is a 9 mm calcified gallstone within the cystic duct. There is also choledocholithiasis with a 5 mm calcified gallstone in the distal duct at the head of the pancreas. 4. The gallbladder is mildly distended without clear CT evidence of acute cholecystitis. If there is clinical concern for acute cholecystitis a right upper quadrant ultrasound could be considered. 5. Hepatomegaly and severe hepatic steatosis. 6. Trace pelvic ascites. 7. Additional findings as above. ACT 112: Negative or not required by law. Electronically signed by: Rolo Naylor M.D. 02/17/2020 1:34 PM
[2020-02-17] MEDS ORDERED: MoRPHine SULFATE 2 MG/ML CARP IV STA (13:47)
[2020-02-17] MEDS ORDERED: SODIUM CHLORIDE 0.9% 1000ML 500 ML IV ONE (13:47)
[2020-02-17] MEDS ORDERED: ONDANSETRON INJ 2 MG/ML 2 ML VIAL IV STA (13:47)
[2020-02-17] MEDS ORDERED: PIPERACILLIN/TAZOBACTAM 4.5 GM/120 ML BAG IV ONE (14:31)
[2020-02-17] MEDS ORDERED: PIPERACILL/TAZOBAC CONSULT ACTIVE PRN (14:31)
--- NOTE | 2020-02-17 14:54 | Gastrointestinal Consultation ---
Date of Consultation February 17, 2020 Assessment & Plan (1) Choledocholithiasis with obstruction: (2) Cholangitis: Pt is a 54 y/o male presented w abd distended, upper abd pain. Labs showed elevated LFTs and lipase, CT abd/pelvis w signs of acute pancreatitis (likely gallstone related), gallbladder thickening w/o obvious cholecystitis, there are evidence of cystic and CBD stones. - Keep NPO - IV antibx started - Plan for ERCP eval this afternoon by Dr. Omalley in [place]. COVID 19 preop screen ing ordered. Send indomethacin 100mg MS to OR holding for ERCP premed. - Will give further recs after ERCP is completed. Supervising Physician Co-Signing Physician Notes I saw and evaluated the patient. He presents with several days of abdominal discomfort which is progressed this morning. He underwent a CT scan which shows evidence of a stone within the common bile duct. In addition he has a significant leukocytosis, elevated liver enzymes and is mildly jaundiced. Patient describes having fevers at home in addition to shaking like chills Physical examination Obese male in obvious discomfort Right upper quadrant tender to palpation Lower extremities edematous bilaterally Impression: Patient presenting with complications related to choledocholithiasis. Based on his presentation I wonder about underlying cholangitis and we will proceed with urgent biliary decompression. I discussed the risks and benefits of the procedure with the patient to include bleeding, infection, perforation and need for repeat studies. Recommendations Broad-spectrum antibiotic coverage Await results of blood cultures ERCP planned for this afternoon General surgery consultation History of Present Illness Reason for Consultation: Abdominal pain; cystic duct and CBD stone Requesting Physician: Dr. Tico Shaw Attending Physician: Dr. Celestine Omalley History of Present Illness Pt is a 54 y/o male, who presented to ED today w c/o abd distension and mostly upper abd pain x 1 day. He denies associated fever, chills. + nausea and vomiting but no coffee ground emesis or hematemesis. Denies bowel habit changes. Upon eval, noted his labs are significant for elevated WBC 19K , elevated LFTs: Tbili 2, AST 112, ALT 273, alk phos 94, lipase 4500. CT abd/pelvis w signs of acute pancreatitis w/o peripancreatic fluid collection, 9 mm calcified gallstone within the cystic duct. There is also choledocholithiasis with a 5 mm calcified gallstone in the distal duct at the head of the pancreas. + gallbladder is mildly distended without clear CT evidence of acute cholecystitis. Pt also has hepatomegaly and hepatic steatosis Quit tobacco products years ago, denies ETOH, denies autoimmune pancreatitis or family hx of hepatobiliary or pancreatic ca. Allergies Allergy/AdvReac Type Severity Reaction Status Date / Time Bactrim Allergy Intermediate RASH Unverified 10/22/17 09:50 sulfamethoxazole Allergy Intermediate RASH Unverified 02/17/20 14:20 trimethoprim Allergy Intermediate RASH Unverified 02/17/20 14:20 cephalexin Allergy Mild RASH Unverified 02/17/20 14:20 oxycodone Allergy Unknown DIARRHEA,VO Unverified 02/17/20 14:20 MITING, Home Medications Home Medications Medication Instructions Recorded Confirmed Type furosemide 20 mg tablet 20 mg PO DAILY tab 07/07/19 02/17/20 History labetalol 100 mg tablet 200 mg PO BID tab 07/07/19 02/17/20 History aspirin [Aspir-81] 81 mg PO QAM 02/17/20 02/17/20 History multivitamin 1 tab PO QAM 02/17/20 02/17/20 History Patient History Medical History Cellulitis of right leg (Inactive) Surgical History H/O colonoscopy Family History Other Colorectal cancer Coronary heart disease Social History (Updated 02/17/20 @ 15:02 by Georgette Robbins DO) Preferred Language: Urdu marital status: Current Living Situation: Spouse current occupational status: employed Feels Safe at Home: Yes Smoking Status: Former smoker Hx Alcohol Use: No Hx Substance Use: No Review of Systems Review of Systems: All systems reviewed & are unremarkable except as noted in HPI & below Physical Exam Constitutional: WD/WN, vitals as above + obese, well groomed and cooperative Eyes: PERRL, conjunctivae normal, anicteric sclerae ENMT: external ear and nose normal, oropharynx normal Respiratory: normal respiratory effort, lungs clear to auscultation Cardiovascular: RRR, no murmur, no edema Gastrointestinal (Abdomen): Inspection/Auscultation: + abdomen distended and + hypoactive bowel sounds Percussion/Palpation: + abdomen tender (across upper abd area) Skin: no rashes, warm and dry no jaundice Psychiatric: A+Ox3, euthymic affect Lymphatic: no lymphedema Results & Data ([facility]) Vital Signs (Past 12 Hours) Vital Signs Temp Pulse Resp BP Pulse Ox 02/17/20 14:20 73 19 96 02/17/20 14:19 70 24 156/81 H 96 02/17/20 13:31 73 23 02/17/20 13:30 74 22 147/83 H 02/17/20 13:13 78 20 151/81 H 02/17/20 12:31 73 21 96 02/17/20 12:30 72 22 166/81 H 96 02/17/20 12:13 71 22 97 02/17/20 12:10 74 21 150/89 H 96 02/17/20 12:08 73 22 97 02/17/20 11:41 36.8 C 76 17 142/67 H 96
--- NOTE | 2020-02-17 15:07 | History & Physical Report ---
Date of Service February 17, 2020 Assessment & Plan (1) Pancreatitis: As noted on CTAP Related to gallstones Neg for acute haresh Leukocytosis noted Elevated LFTs, monitor UA neg Lipase 4524 Seen by GI in ED, planning for ERCP later today (2) Hypertension: Holding home meds for now Resume once tolerating PO Holding home aspirin 81mg, uses for prevention only (3) Swelling of lower extremity: Lasix 20mg PO at baseline Will use 10mg IV to manage (4) DVT prophylaxis: SCDs given procedure History of Present Illness Primary Care Provider: LISA Rinaldi 54 y/o M c/o abd pain. Pt states he has been having indigestion for about the last 3 months, especially with certain foods. He states that starting yesterday, he has been having stabbing abd pain. Pain is epigastric and moves to the lower abd and into his back. He has been having n/v, an episode about every hour. Last emesis was around 5a today. No diarrhea. He has never been sick like this before. He states that his abd is large at baseline, but he feels very distended to the point of pain. Pt denies fever, SOB, chest pain, LE pain. Pt has baseline R LE swelling that he wears compression stockings for. Pt was seen by GI in the ED and planning for ERCP this afternoon. Allergies Allergy/AdvReac Type Severity Reaction Status Date / Time Bactrim Allergy Intermediate RASH Unverified 10/22/17 09:50 sulfamethoxazole Allergy Intermediate RASH Unverified 02/17/20 14:20 trimethoprim Allergy Intermediate RASH Unverified 02/17/20 14:20 cephalexin Allergy Mild RASH Unverified 02/17/20 14:20 oxycodone Allergy Unknown DIARRHEA,VO Unverified 02/17/20 14:20 MITING, Home Medications Home Medications Medication Instructions Recorded Confirmed Type furosemide 20 mg tablet 20 mg PO DAILY tab 07/07/19 02/17/20 History labetalol 100 mg tablet 200 mg PO BID tab 07/07/19 02/17/20 History aspirin [Aspir-81] 81 mg PO QAM 02/17/20 02/17/20 History multivitamin 1 tab PO QAM 02/17/20 02/17/20 History Past Med/Surg History Medical History Cellulitis of right leg (Inactive) Surgical History H/O colonoscopy Family History Other Colorectal cancer Coronary heart disease Social History (Updated 02/17/20 @ 15:02 by Georgette Robbins DO) Preferred Language: Croatian marital status: Current Living Situation: Spouse current occupational status: employed Feels Safe at Home: Yes Smoking Status: Former smoker Hx Alcohol Use: No Hx Substance Use: No Review of Systems Review of Systems: Pertinent positives and negatives reviewed in HPI--all others negative Physical Exam Constitutional: WD/WN, vitals as above Eyes: normal visual rodríguez by confrontation and + anicteric sclerae Neck: normal visual inspection and trachea midline Respiratory: normal respiratory effort, lungs clear to auscultation Cardiovascular: Rate/Rhythm: regular rate and regular rhythm Gastrointestinal (Abdomen): Inspection/Auscultation: + abdomen distended Percussion/Palpation: + abdomen tender (epigastric is very TTP, diffuse TTP along entire abd); + abdomen not soft Musculoskeletal: Head/Neck/Chest: normocephalic and head atraumatic negative for edema, peripheral pulses intact Skin: no rashes, warm and dry Neurologic: awake; not confused Speech / Cognition: normal speech Psychiatric: A+Ox3, euthymic affect Results & Data Results & Data ([facility]) Vital Signs (Past 12 Hours) Vital Signs Temp Pulse Resp BP Pulse Ox 02/17/20 14:20 73 19 96 02/17/20 14:19 70 24 156/81 H 96 02/17/20 13:31 73 23 02/17/20 13:30 74 22 147/83 H 02/17/20 13:13 78 20 151/81 H 02/17/20 12:31 73 21 96 02/17/20 12:30 72 22 166/81 H 96 02/17/20 12:13 71 22 97 02/17/20 12:10 74 21 150/89 H 96 02/17/20 12:08 73 22 97 02/17/20 11:41 36.8 C 76 17 142/67 H 96 Diagnostic Findings Acute pancreatitis 9mm and 5mm gallstones, neg for acute haresh Code Status & VTE Plan Code Status Full code VTE Prophylaxis Plan VTE Prophylaxis will be ordered: Yes PG Care Time/CCT Total # of Minutes Spent Total Time Spent with Patient: Total time spent is greater than 50% in coordination of care (as documented) at patient's floor/unit and/or counseling patient: Coding Level of Care Code 35982 Initial Inpt Care Lvl 3 Diagnoses Pancreatitis K85.90 Hypertension I10 Swelling of lower extremity M79.89 DVT prophylaxis Z29.9
[2020-02-17] MEDS ORDERED: INDOMETHACIN 50 MG SUPP PR ONE (15:17)
[2020-02-17] MEDS: SODIUM CHLORIDE 0.9% 500 ML IV SCH ×2 (15:27→18:00)
[2020-02-17] MEDS ORDERED: ATROPINE SULFATE 0.1 MG/ML 10ML SYR IV PRN (15:55)
[2020-02-17] MEDS ORDERED: ePHEDrine sulfate 50 MG/ML AMP IV PRN (15:55)
[2020-02-17] MEDS ORDERED: fentaNYL citrate 100 MCG/2 ML VIAL IV PRN (15:55)
[2020-02-17] MEDS ORDERED: ONDANSETRON INJ 2 MG/ML 2 ML VIAL IV PRN (15:55)
--- NOTE | 2020-02-17 15:55 | Anesthesiology Consultation ---
Date of Service February 17, 2020 Assessment & Plan ASA ASA3 Proposed Anesthesia Anesthesia Type: General Risk / Benefits Reviewed With: PT / POA / Parent / Guardian, Accepts Plan and Informed Consent Obtained History Surgery Operation Date: 02/17/20 16:05 Proposed Procedures p Endoscopic Retrograde Cholangiopancreatogram - Celestine Omalley Height/Weight Height: 5 ft 6 in Weight: 136.3 kg Allergies Allergy/AdvReac Type Severity Reaction Status Date / Time Bactrim Allergy Intermediate RASH Unverified 10/22/17 09:50 sulfamethoxazole Allergy Intermediate RASH Unverified 02/17/20 14:20 trimethoprim Allergy Intermediate RASH Unverified 02/17/20 14:20 cephalexin Allergy Mild RASH Unverified 02/17/20 14:20 oxycodone Allergy Unknown DIARRHEA,VO Unverified 02/17/20 14:20 MITING, Medications Home Medications Medication Instructions Recorded Confirmed Last Taken furosemide 20 mg tablet 20 mg PO DAILY tab 07/07/19 02/17/20 02/17/20 labetalol 100 mg tablet 200 mg PO BID tab 07/07/19 02/17/20 02/17/20 aspirin [Aspir-81] 81 mg PO QAM 02/17/20 02/17/20 02/17/20 multivitamin 1 tab PO QAM 02/17/20 02/17/20 02/17/20 Active Medications Generic Name Dose Route Start Last Admin Trade Name Freq PRN Reason Stop Dose Admin Sodium Chloride 500 mls @ 125 mls/hr 02/17/20 14:00 02/17/20 15:27 Nss IV 03/18/20 13:59 125 mls/hr .Q4H UGO Administration NPO Date Last Intake of Fluids: 02/17/20 Time Last Intake of Fluids: 06:00 Last Intake of Fluids Comment: milk and water Date Last Intake of Solids: 02/17/20 Time Last Intake of Solids: 06:00 Last Intake of Solids Comment: rice krispies Past Medical History Medical History Cellulitis of right leg (Inactive) Exercise / Class Metabolic Activity II 4-5 Yardwork/Stairs/Walk up hill Past Family History Family History Other Colorectal cancer Coronary heart disease Past Surgical History Surgical History H/O colonoscopy Past Anesthesia History No Hx of Anesthesia Complications and No Family Hx of Anesthesia Complications History of PONV No Hx of PONV and No Hx of Motion Sickness Social History Smoking Status: Former smoker Hx Alcohol Use: No Hx Substance Use: No Review of Systems denies fever/cough/ colds/ chest pain/ SOB/ EMBER Constitutional: no fever and no chills Respiratory: no cough and no dyspnea denies EMBER Cardiovascular: no chest pain and no dyspnea on exertion Physical Exam Vital Signs Last Vital Signs Temp 36.8 C 02/17/20 15:45 Pulse 76 02/17/20 15:45 Resp 18 02/17/20 15:45 BP 146/78 H 02/17/20 15:45 Pulse Ox 95 02/17/20 15:45 ENMT Mouth: no TMJ abnormality and no dentition abnormality Thyromental Distance: > or= 3.5 Finger Breadths Mallampati Class: II Neck neck extension not limited Respiratory normal respiratory effort; no respiratory distress Auscultation: lungs clear to auscultation bilaterally Cardiovascular Rate/Rhythm: regular rate and regular rhythm Neurologic moves all extremities Psychiatric Orientation: alert and oriented x 3 Testing Laboratory Results 02/17/20 12:10 02/17/20 12:10 Urine Color Yellow 02/17/20 12:10 Urine Appearance Clear (Clear) 02/17/20 12:10 Urine pH 5.5 (4.5-7.5) 02/17/20 12:10 Ur Specific [place] 1.016 (1.000-1.030) 02/17/20 12:10 Urine Protein Negative (Negative) 02/17/20 12:10 Urine Glucose (UA) Negative (Negative) 02/17/20 12:10 Urine Ketones Negative (Negative) 02/17/20 12:10 Urine Nitrite Negative (Negative) 02/17/20 12:10 Ur Leukocyte Esterase Negative (Negative) 02/17/20 12:10
[2020-02-17] MEDS ORDERED: fentaNYL citrate 100 MCG/2 ML VIAL ONE (16:22)
[2020-02-17] MEDS ORDERED: MIDAZOLAM HCL 1 MG/ML 2ML VIAL ONE (16:22)
[2020-02-17] MEDS ORDERED: ONDANSETRON INJ 2 MG/ML 2 ML VIAL ONE (16:22)
[2020-02-17] MEDS ORDERED: PROPOFOL IV EMULSION 10 MG/ML 20 ML VIAL IV ONE (16:22)
--- NOTE | 2020-02-17 17:34 | GI REPORT ---
Patient Name: Franck Cox Procedure Date: 02/17/2020 4:09 PM Date of : 1965 Admit Type: Outpatient Age: 54 Gender: Male Attending MD: Celestine Omalley DO Procedure: ERCP Providers: Celestine Omalley DO Referring MD: YAEL Camilo Indications: Abdominal pain of suspected biliary origin, Suspected ascending cholangitis Medicines: General Anesthesia Complications: No immediate complications. Estimated blood loss: Minimal. Estimated Blood Loss: Estimated blood loss was minimal. Procedure: Pre-Anesthesia Assessment: - Prior to the procedure, a History and Physical was performed, and patient medications, allergies and sensitivities were reviewed. The patient's tolerance of previous anesthesia was reviewed. - The risks and benefits of the procedure and the sedation options and risks were discussed with the patient. All questions were answered and informed consent was obtained. - Patient identification and proposed procedure were verified prior to the procedure by the physician, the nurse and the warp picker. The procedure was verified in the procedure room. - Pre-procedure physical examination revealed no contraindications to sedation. - ASA Grade Assessment: III - A patient with severe systemic disease. - After reviewing the risks and benefits, the patient was deemed in satisfactory condition to undergo the procedure. - The anesthesia plan was to use general anesthesia. - Immediately prior to administration of medications, the patient was re-assessed for adequacy to receive sedatives. - The heart rate, respiratory rate, oxygen saturations, blood pressure, adequacy of pulmonary ventilation, and response to care were monitored throughout the procedure. - The physical status of the patient was re-assessed after the procedure. After obtaining informed consent, the scope was passed under direct vision. Throughout the procedure, the patient's blood pressure, pulse, and oxygen saturations were monitored continuously. The scope was introduced through the mouth, and advanced to the duodenum and used to inject contrast into the bile duct. The patient tolerated the procedure well. The ERCP was performed with moderate difficulty due to challenging cannulation because of papillary stenosis. Successful completion of the procedure was aided by performing the maneuvers documented (below) in this report. Findings: The solutions developer film was normal. The esophagus was successfully intubated under direct vision without detailed examination of the pharynx, larynx, and associated structures, and upper GI tract. The upper GI tract was grossly normal. The major papilla was located partially within a diverticulum. The major papilla was congested. The ventral pancreatic duct was inadvertently cannulated with the short-nosed traction sphincterotome and guidewire without any complications, this wire was left in place to aid in biliary cannulation. Several different cannula and wire combinations were attempted in order to access the bile duct. Unfortunately these were initially not successful. A ventral pancreatic septotomy was made with a monofilament Fusion OMNI sphincterotome using ERBE electrocautery. There was no post-sphincterotomy bleeding. Several more attempts at biliary cannulation were made. Finally, the bile duct was deeply cannulated with the short-nosed traction sphincterotome and 0.035 in Delta angled guidewire. Contrast was injected. I personally interpreted the bile duct images. Contrast extended to the hepatic ducts. The biliary orifice was stenotic. This appeared benign. The lower third of the main bile duct contained filling defect(s) thought to be a stone. The biliary sphincterotomy was extended with a Fusion OMNI sphincterotome using ERBE electrocautery. There was no post-sphincterotomy bleeding. The delta wire was then exchanged for a 0.035 in Acrobat 2 guidewire. The biliary tree was swept with an 8.5 mm to 15 mm balloon starting at the bifurcation. Two stones were removed. No stones remained on occlusion cholangiogram. Pus was swept from the duct. One 10 Fr by 7 cm biliary stent with a single external flap and a single internal flap was placed 7 cm into the common bile duct. Bile flowed through the stent. The stent was in good position. One 5 Fr by 7 cm pancreatic stent with a full external pigtail and no internal flaps was placed 5 cm into the ventral pancreatic duct. Clear fluid flowed through the stent. The stent was in good position. The endoscope was withdrawn from the patient. Indomethacin 100 mg was given via suppository to decrease the risk of post-ERCP pancreatitis (PEP). Impression: - The major papilla was located partially within a diverticulum. - The major papilla appeared congested. - Biliary papillary stenosis, benign. - Choledocholithiasis was found. Complete removal was accomplished by biliary sphincterotomy and balloon extraction. - A pancreatic septotomy was performed. - A biliary sphincterotomy was performed. - The biliary tree was swept and pus was found. - One biliary stent was placed into the common bile duct. - One pancreatic stent was placed into the ventral pancreatic duct. - Indomethacin given to decrease risk of post-ERCP pancreatitis. Recommendation: - Return patient to [facility] for ongoing care. - Clear liquid diet. - Use broad spectrum antibiotics for 2 weeks. - Repeat ERCP in 6 weeks to remove stent. - Refer to a surgeon for cholecystectomy. - continue IV hydration at 150 ml overnight given patients acute pancreatitis. Celestine Omalley D.O. Celestine Omalley, DO 02/17/2020 5:33:45 PM This report has been signed electronically. Note Initiated On: 02/17/2020 4:09 PM Number of Addenda: 0 I attest to the content of the Intraoperative Record and orders documented therein, exceptions below {[id number]}
--- NOTE | 2020-02-17 17:34 | Post Operative Brief Note ---
Immediate Post Op Note v1 Date of Surgery February 17, 2020 Pre & Post Diagnosis Operation Date: 02/17/20 16:05 Pre-Op Diagnosis: Choledocholithiasis with obstruction, cholangitis Post-Op Diagnosis: Choledocholithiasis with obstruction, cholangitis I identified the patient and participated in the time-out.: Yes Procedure Operation Date: 02/17/20 16:05 Actual Procedures p Endoscopic Retrograde Cholangiopancreatogram with gallstone removal, bile duct stent insertion, pancreatic stent insertion - Celestine Omalley Surgeon Celestine Omalley Honing Machine Operator Production none Estimated Blood Loss 0 Findings Consistent with Post-Op Diagnosis
--- NOTE | 2020-02-17 17:36 | Communication Note ---
Date of Service: February 17, 2020 Patient underwent urgent ERCP this afternoon. This was an exceptionally difficult case requiring placement of both the pancreatic stent and biliary stent. The patient appears to have an obstructing stone which was removed in addition to cholangitis. Recommendations IV hydration overnight at 150 mL/h of LR as the patient has underlying pancreatitis Continue broad-spectrum antibiotic coverage General surgery consultation
--- NOTE | 2020-02-17 17:50 | Fluoroscopy Report ---
[place] ERCP biliary ductal CLINICAL HISTORY: ERCP. Choledocholithiasis. COMPARISON STUDY: Abdomen and pelvis CT 02/17/2020. FLUOROSCOPY TIME: 276 seconds.. FINDINGS: A single fluoroscopic spot images of the right upper quadrant demonstrates an endoscope at the second portion of duodenum. There is a common bile duct stent which is likely in good position. IMPRESSION: Fluoroscopy provided for ERCP. ACT 112: Negative or not required by law. Electronically signed by: Neal Douglas M.D. 02/17/2020 5:49 PM
[2020-02-17] MEDS ORDERED: MAGNESIUM HYDROXIDE SUSP 30 ML UDC PO PRN (19:36)
[2020-02-17] MEDS ORDERED: ACETAMINOPHEN 325 MG TAB PO PRN (19:36)
[2020-02-17] MEDS: NSS + 20MEQ KCL 20 MEQ/1,000 ML BAG IV SCH (20:42)
[2020-02-17] MEDS: ONDANSETRON INJ 2 MG/ML 2 ML VIAL IV PRN (20:44)
[2020-02-17] MEDS: PIPERACILLIN/TAZOBACTAM 4.5 GM in DEXTROSE 5% 100 ML IV SCH (22:05)
[2020-02-17] MEDS ORDERED: GLUCAGON FOR INJ 1 MG VIAL ONE (22:19)
[2020-02-18] MEDS: PIPERACILLIN/TAZOBACTAM 4.5 GM in DEXTROSE 5% 100 ML IV SCH ×3 (05:01→21:11)
--- NOTE | 2020-02-18 08:33 | Hospitalist Progress Note ---
Date of Service February 18, 2020 Assessment & Plan (1) Acute gallstone pancreatitis: 54 yo M PMHx EMBER, HTN, morbid obesity admitted for acute gallstone pancreatitis and cholangitis. Gallstone pancreatitis/ cholangitis: - ERCP performed yesterday by Dr. Omalley, appreciate involvement: - biliary and pancreatic stents placed for treatment of cholangitis. - Continue NPO, IVF, broad spectrum antibiotic coverage (patient currently on Zosyn). - daily labs (CBC, CMP, lipase) to follow resolution of pancreatitis/cholangitis. - While patient's WBC count remained the same at 19 today, patient is subjectively improving. - Patient's lipase, AST, ALT downtrending since ERCP. - General Surgery consulted this AM and appreciate recommendations: - will perform laparoscopic cholecystectomy after resolution of acute pancreatitis/cholangitis. EMBER: - continue home CPAP of 5. HTN: - NPO for now, pt normotensive today, continue to monitor. Code Status: FULL CODE FEN/GI: NPO, NSS with KCl 20 meq @ 120cc/hr DVT ppx: SCDs due to upcoming lap haresh, ad gaurav on demand Dispo: pending resolution of cholangitis/ pancreatitis and potential lap haresh while admitted (2) Cholangitis: (3) Sleep apnea: (4) Hypertension: Admission and Anticipated Discharge Date Admission Date: February 17, 2020 Supervising Physician Co-Signing Physician Notes I personally examined the patient and verified all montiel points of history and exam, discussed case, and agree with decision making with Dr Chris. pain some - seems to radiate to back. otherwise doing reasonably well. loans consultant input appreciated. vitals noted nad heent nc at mmm breathing unlabored no accessory muscles good effort skin no rashes no pallor or icterus neuro no focal deficits back pain non reproducible gallstone pancreatitis/cholangitis -zosyn for cholangitis -s/p stenting for both -for surgery in near future - give time to recover -continue IVF, cautiously give clear liquids PO, advance as tolerated then -pain control DVT proph - mechanical for now (just stented x2 yesterday, possibly pharmacologic for a few days depending on progress starting tomorrow but will then need to hold for surgery) otherwise as above Subjective Patient without acute events overnight. Reports that since his ERCP he has had some decrease in his abdominal pain, and a profound decrease in his nausea and vomiting. Is having some back pain and abdominal pain that he reports "is due to all of the vomiting yesterday". He feels that his abdomen is less distended today than yesterday. Still with mild nausea, and moderate abdominal pain. Due to "complex nature of ERCP", GI suggested general surgery consult for today. Patient is otherwise without shortness of breath or chest pain, diarrhea or constipation, dizziness or headaches. Denies fevers or chills. Reports that his diet is "full of fatty foods and fast foods". Denies family or personal history of gallbladder issues. Review of Systems Review of Systems: All systems reviewed & are unremarkable except as noted in HPI & below Constitutional: no fever, no chills and no malaise Respiratory: no cough and no dyspnea Cardiovascular: no chest pain, no palpitations and no edema Gastrointestinal: + abdominal pain and + nausea; no vomiting, no constipation and no diarrhea/loose stools Physical Exam Constitutional: WD/WN, vitals as above Eyes: PERRL, conjunctivae normal, anicteric sclerae ENMT: external ear and nose normal, oropharynx normal Neck: trachea midline, no thyromegaly Respiratory: normal respiratory effort, lungs clear to auscultation Cardiovascular: RRR, no murmur, no edema Gastrointestinal (Abdomen): Inspection/Auscultation: + abdomen distended Percussion/Palpation: + abdomen tender (Mild, right upper quadrant) and abdomen soft; no guarding Skin: no rashes, warm and dry Psychiatric: A+Ox3, euthymic affect Results & Data Results & Data ([facility]) Vital Signs (Past 12 Hours) Vital Signs Temp Pulse Pulse Resp BP BP Pulse Ox 02/18/20 07:06 37.2 C 78 14 125/68 92 02/18/20 03:54 36.9 C 78 14 135/77 94 02/17/20 23:45 36.4 C L 74 14 129/70 97 02/17/20 22:32 36.6 C 69 18 122/68 94 02/17/20 21:21 36.8 C 68 18 129/77 95 Resident Activity Tracking Resident Involvement: Resident Care Provided Care Provided: [facility]
[2020-02-18] MEDS: NSS + 20MEQ KCL 20 MEQ/1,000 ML BAG IV SCH ×2 (08:39→21:26)
[2020-02-18] MEDS: FUROSEMIDE 10 MG in SYRINGE 0 ML IV SCH (08:40)
[2020-02-18] MEDS ORDERED: FUROSEMIDE 40 MG/4 ML VIAL IV SCH (09:00)
--- NOTE | 2020-02-18 09:26 | Surgery Consultation ---
Date of Consultation February 18, 2020 Assessment & Plan (1) Acute gallstone pancreatitis: seen with Dr. Ferreira labs pending will let him recover from pancreatitis/cholangitis and plan lap haresh in a few days History of Present Illness Attending Physician: Toni Mcdonald DO History of Present Illness 54 y/o male with 3 months indigestion after eating. Symptoms increased, he was seen in the ED yesterday, admitted and had ERCP yesterday afternoon for cholangitis. He feels a little better today, still has some back pain. Allergies Allergy/AdvReac Type Severity Reaction Status Date / Time Bactrim Allergy Intermediate RASH Unverified 10/22/17 09:50 sulfamethoxazole Allergy Intermediate RASH Unverified 02/17/20 14:20 trimethoprim Allergy Intermediate RASH Unverified 02/17/20 14:20 cephalexin Allergy Mild RASH Unverified 02/17/20 14:20 oxycodone Allergy Unknown DIARRHEA,VO Unverified 02/17/20 14:20 MITING, Home Medications Home Medications Medication Instructions Recorded Confirmed Type furosemide 20 mg tablet 20 mg PO DAILY tab 07/07/19 02/17/20 History labetalol 100 mg tablet 200 mg PO BID tab 07/07/19 02/17/20 History aspirin [Aspir-81] 81 mg PO QAM 02/17/20 02/17/20 History multivitamin 1 tab PO QAM 02/17/20 02/17/20 History Patient History Medical History Cellulitis of right leg (Inactive) Surgical History H/O colonoscopy Family History Other Colorectal cancer Coronary heart disease Social History Preferred Language: Yakut Communication Ability: Effective Commercial Development Manager Required: No Beliefs That Will Affect Care: None marital status: Current Living Situation: Spouse Current Living Situation Comment: Lives with Belinda, current occupational status: employed Other Information That Helps Us Care for You: No Feels Safe at Home: Yes Smoking Status: Former smoker Do You Dip or Chew Tobacco: No ; Second Hand Exposure: Yes ; Tobacco Cessation Education Requested by Patient: No Hx Alcohol Use: Yes (A couple times a year) Alcohol type: beer Hx Substance Use: No Review of Systems Gastrointestinal: + abdominal pain, + heartburn, + nausea and + vomiting Physical Exam Constitutional: WD/WN, vitals as above + obese Gastrointestinal (Abdomen): Inspection/Auscultation: + visible herniation (umbilical) Percussion/Palpation: + abdomen tender (mild) and abdomen soft Results & Data Vital Signs (Past 12 Hours) Vital Signs Temp Pulse Pulse Resp BP BP Pulse Ox 02/18/20 07:06 37.2 C 78 14 125/68 92 02/18/20 03:54 36.9 C 78 14 135/77 94 02/17/20 23:45 36.4 C L 74 14 129/70 97 02/17/20 22:32 36.6 C 69 18 122/68 94 PG Care Time/CCT Total # of Minutes Spent Total Time Spent with Patient: Total time spent is greater than 50% in coordination of care (as documented) at patient's floor/unit and/or counseling patient: Coding Level of Care Code 26224 Inpt Consult Level 2 Diagnoses Acute gallstone pancreatitis K85.10
--- NOTE | 2020-02-18 09:27 | Gastroenterology Progress Note ---
Date of Service February 18, 2020 Assessment & Plan (1) Acute gallstone pancreatitis: Patient admitted with acute gallstone pancreatitis status post ERCP with gallstone extraction. We placed a biliary stent for treatment of underlying cholangitis in addition to a prophylactic pancreatic stent. The patient notes that he is feeling better today. Recommendations Continue with IV hydration Continue with broad-spectrum antibiotic coverage Would suggest daily labs to include CMP, CBC and lipase as the patient presented with acute pancreatitis Appreciate surgical input of Dr. Ferreira who plans on cholecystectomy once the patient recovers from his acute pancreatitis Admission and Anticipated Discharge Date Admission Date: February 17, 2020 Subjective The patient notes that his abdominal pain is slowly improving. He notes that compared to admission he feels much better. Review of Systems Constitutional: + body aches; no fever, no chills, no sweats and no malaise Eyes: no diplopia Respiratory: no change in sputum and no hemoptysis Cardiovascular: no chest pain with activity Physical Exam Constitutional: WD/WN, vitals as above Neck: trachea midline, no thyromegaly Respiratory: normal respiratory effort; no respiratory distress Gastrointestinal (Abdomen): Percussion/Palpation: abdomen soft Obese abdomen without guarding mild tenderness in the right upper quadrant Results & Data ([facility]) Vital Signs (Past 12 Hours) Vital Signs Temp Pulse Pulse Resp BP BP Pulse Ox 02/18/20 07:06 37.2 C 78 14 125/68 92 02/18/20 03:54 36.9 C 78 14 135/77 94 02/17/20 23:45 36.4 C L 74 14 129/70 97 02/17/20 22:32 36.6 C 69 18 122/68 94 Laboratory Results Laboratory Results - last 24 hr 02/17/20 02/17/20 02/17/20 12:10 12:10 12:10 WBC 19.07 H RBC 4.84 Hgb 15.0 Hct 42.9 MCV 88.6 MCH 31.0 MCHC 35.0 RDW Std Deviation 42.7 RDW Coeff of Josue 13.2 Plt Count 172 MPV 10.2 Immature Gran % (Auto) 0.4 Neut % (Auto) 86.6 Lymph % (Auto) 8.4 [place] % (Auto) 4.4 Eos % (Auto) 0.1 Baso % (Auto) 0.1 Neut # (Auto) 16.53 H Lymph # (Auto) 1.61 [place] # (Auto) 0.83 H Eos # (Auto) 0.02 Baso # (Auto) 0.01 Immature Gran # (Auto) 0.07 H Sodium 135 L Potassium 3.8 Chloride 102 Carbon Dioxide 25 Anion Gap 8.0 BUN 18 Creatinine 0.87 Est Cr Clr Drug Dosing 124.4 Est GFR ( Amer) 111.8 Est GFR (Non-Af Amer) 96.5 BUN/Creatinine Ratio 20.2 H Glucose 131 H Calcium 9.1 Total Bilirubin 1.6 H AST 112 H ALT 273 H Alkaline Phosphatase 94 Total Protein 7.6 Albumin 3.8 Globulin 3.8 Albumin/Globulin Ratio 1.0 Lipase 4524 H Urine Color Yellow Urine Appearance Clear Urine pH 5.5 Ur Specific [place] 1.016 Urine Protein Negative Urine Glucose (UA) Negative Urine Ketones Negative Urine Blood Negative Urine Nitrite Negative Urine Bilirubin Negative Urine Urobilinogen Negative Ur Leukocyte Esterase Negative COVID-19 PCR 02/17/20 15:28 WBC RBC Hgb Hct MCV MCH MCHC RDW Std Deviation RDW Coeff of Josue Plt Count MPV Immature Gran % (Auto) Neut % (Auto) Lymph % (Auto) [place] % (Auto) Eos % (Auto) Baso % (Auto) Neut # (Auto) Lymph # (Auto) [place] # (Auto) Eos # (Auto) Baso # (Auto) Immature Gran # (Auto) Sodium Potassium Chloride Carbon Dioxide Anion Gap BUN Creatinine Est Cr Clr Drug Dosing Est GFR ( Amer) Est GFR (Non-Af Amer) BUN/Creatinine Ratio Glucose Calcium Total Bilirubin AST ALT Alkaline Phosphatase Total Protein Albumin Globulin Albumin/Globulin Ratio Lipase Urine Color Urine Appearance Urine pH Ur Specific [place] Urine Protein Urine Glucose (UA) Urine Ketones Urine Blood Urine Nitrite Urine Bilirubin Urine Urobilinogen Ur Leukocyte Esterase COVID-19 PCR NEGATIVE
[2020-02-18 10:06] LABS: Basophils # (auto) 0.02 K/uL (0-0.2); Basophils % (auto) 0.1 %; Eosinophils # (auto) 0.06 K/uL (0-0.5); Eosinophils % (auto) 0.3 %; Hemoglobin 13.3 g/dL (14.0-18.0); Immature Granulocytes # (auto) 0.08 K/uL (0.00-0.02); Immature Granulocytes % (auto) 0.4 %; Lymphocytes # (auto) 1.14 K/uL (1.2-3.4); Mean Corpuscular Hemoglobin 30.7 pg (25-34); Mean Corpuscular Hgb Conc 34.1 g/dL (32-36); Mean Corpuscular Volume 90.1 fL (80-100); Mean Platelet Volume 9.6 fL (7.4-10.4); Monocytes # (auto) 1.13 K/uL (0.11-0.59); Monocytes % (auto) 5.9 %; Neutrophils # (auto) 16.57 K/uL (1.4-6.5); Neutrophils % (auto) 87.3 %; Platelet Count 132 K/uL (130-400); RDW Coefficient of Variation 13.3 % (11.5-14.5); RDW Standard Deviation 44.1 fL (36.4-46.3); Red Blood Count 4.33 M/uL (4.7-6.1)
[2020-02-18 10:36] LABS: Albumin Level 3.1 gm/dl (3.4-5.0); BUN Creatinine Ratio 20.6 (10-20); Calcium 8.2 mg/dl (8.5-10.1); Creatinine Clr Calc Pharmacy 110.3 ml/min; Est GFR (African American) 99.5; Est GFR (Non-African American) 85.8; Magnesium 2.3 mg/dl (1.8-2.4); Potassium 3.7 mmol/L (3.5-5.1)
[2020-02-18 10:40] LABS: Bilirubin Direct 0.5 mg/dl (0-0.2); Bilirubin,Total 1.3 mg/dl (0.2-1); Phosphorus 2.4 mg/dl (2.5-4.9); Total Protein 6.6 gm/dl (6.4-8.2)
[2020-02-18] MEDS: ONDANSETRON INJ 2 MG/ML 2 ML VIAL IV PRN (13:10)
[2020-02-18] MEDS ORDERED: INDOMETHACIN 50 MG SUPP PR SCH (14:30)
[2020-02-18] MEDS ORDERED: ACETAMINOPHEN 325 MG TAB PO PRN (17:43)
--- NOTE | 2020-02-18 17:51 | Billing Data ---
Date of Service February 18, 2020 Coding Level of Care Code 13359 Subseq Hosp Care Lvl 3
[2020-02-18] MEDS: MoRPHine SULFATE 2 MG/ML CARP IV PRN (18:59)
[2020-02-18] MEDS: KETOROLAC TROMETHAMINE 15 MG/ML VIAL IV PRN (21:55)
[2020-02-19] MEDS: MoRPHine SULFATE 2 MG/ML CARP IV PRN (03:02)
[2020-02-19] MEDS: NSS + 20MEQ KCL 20 MEQ/1,000 ML BAG IV SCH ×3 (05:21→15:48)
[2020-02-19] MEDS: PIPERACILLIN/TAZOBACTAM 4.5 GM in DEXTROSE 5% 100 ML IV SCH ×3 (05:25→22:23)
[2020-02-19 06:11] LABS: Basophils # (auto) 0.03 K/uL (0-0.2); Basophils % (auto) 0.2 %; Eosinophils % (auto) 0.6 %; Hematocrit (blood only) 39.3 % (42-52); Immature Granulocytes # (auto) 0.12 K/uL (0.00-0.02); Immature Granulocytes % (auto) 0.7 %; Lymphocytes # (auto) 1.38 K/uL (1.2-3.4); Lymphocytes % (auto) 7.7 %; Mean Corpuscular Hgb Conc 33.1 g/dL (32-36); Mean Corpuscular Volume 93.8 fL (80-100); Mean Platelet Volume 10.3 fL (7.4-10.4); Monocytes % (auto) 7.2 %; Neutrophils # (auto) 15.06 K/uL (1.4-6.5); Neutrophils % (auto) 83.6 %; Platelet Count 154 K/uL (130-400); RDW Coefficient of Variation 13.4 % (11.5-14.5); RDW Standard Deviation 46.2 fL (36.4-46.3); Red Blood Count 4.19 M/uL (4.7-6.1); White Blood Count 17.99 K/uL (4.8-10.8)
[2020-02-19 06:45] LABS: Calcium 8.2 mg/dl (8.5-10.1); Est GFR (African American) 93.7; Est GFR (Non-African American) 80.8; Potassium 3.3 mmol/L (3.5-5.1)
[2020-02-19 06:48] LABS: Albumin Globulin Ratio 0.8 (0.9-2); Bilirubin,Total 1.2 mg/dl (0.2-1); Globulin 3.8 gm/dl (2.5-4.0); Total Protein 6.8 gm/dl (6.4-8.2)
--- NOTE | 2020-02-19 07:35 | Hospitalist Progress Note ---
Date of Service February 19, 2020 Assessment & Plan (1) Acute gallstone pancreatitis: 54 yo M PMHx EMBER, HTN, morbid obesity admitted for acute gallstone pancreatitis and cholangitis. Gallstone pancreatitis/ cholangitis: - ERCP performed this admission by Dr. Omalley, appreciate involvement: - biliary and pancreatic stents placed for treatment of cholangitis. - Continue broad spectrum antibiotic coverage (patient currently on Zosyn). - daily labs to follow resolution of pancreatitis/cholangitis. - WBC count decreased minimally to 18 today, patient is continuing to subjectively improve. - Patient's lipase, AST, ALT downtrending since ERCP. - General Surgery consulted and appreciate recommendations: - will perform laparoscopic cholecystectomy tomorrow with GI involvement given good clinic improvement. EMBER: - Continue home CPAP of 5. HTN: - pt normotensive today, continue to monitor. Code Status: FULL CODE FEN/GI: NPO at midnight , NSS at 150cc/hr, continue to monitor fluid status DVT ppx: SCDs due to upcoming lap haresh, ad gaurav on demand Dispo: pending resolution of cholangitis/ pancreatitis and lap haresh tomorrow (2) Cholangitis: (3) Sleep apnea: (4) Hypertension: Admission and Anticipated Discharge Date Admission Date: February 17, 2020 Supervising Physician Co-Signing Physician Notes I personally examined the patient and verified all montiel points of history and exam, discussed case, and agree with decision making with Dr Chris. pain control better, able to sleep some. pleased with progress. ate liquid diet without trouble. sales representative consultant input appreciated. vitals noted nad heent nc at mmm breathing unlabored no accessory muscles good effort skin no rashes no pallor or icterus neuro no focal deficits gallstone pancreatitis/cholangitis -zosyn for cholangitis -s/p stenting for both -for surgery in near future - fortunately likely early this coming week -continue IVF, tolerating liquid diet -pain control (improving) DVT proph - mechanical for now (just stented x2 02/16, but now for surgery tomorrow - can likely initiate pharmacologic post op then) otherwise as above Subjective Patient without acute events overnight. With significant improvement in his abdominal pain, however still with back pain "from retching". Denies nausea, has tolerated clear liquid diet well. Discussed that Dr. Ferreira intends to perform laparoscopic cholecystectomy tomorrow with GI on-board. Patient is otherwise without shortness of breath or chest pain, diarrhea or c onstipation, dizziness or headaches. Denies fevers or chills. Review of Systems Review of Systems: All systems reviewed & are unremarkable except as noted in HPI & below Constitutional: no fever, no chills and no malaise Respiratory: no cough and no dyspnea Cardiovascular: no chest pain, no palpitations and no edema Gastrointestinal: + abdominal pain; no nausea, no vomiting, no constipation and no diarrhea/loose stools Physical Exam Constitutional: WD/WN, vitals as above Eyes: PERRL, conjunctivae normal, anicteric sclerae ENMT: external ear and nose normal, oropharynx normal Neck: trachea midline, no thyromegaly Respiratory: normal respiratory effort, lungs clear to auscultation Cardiovascular: Rate/Rhythm: regular rate and regular rhythm Extremities: + edema (trace to 1+, RLE>LLE) Gastrointestinal (Abdomen): Inspection/Auscultation: + abdomen distended Percussion/Palpation: + abdomen tender (Mild, right upper quadrant) and abdomen soft; no guarding Skin: chronic venous stasis changes R leg Psychiatric: A+Ox3, euthymic affect Results & Data Results & Data ([facility]) Vital Signs (Past 12 Hours) Vital Signs Temp Pulse Pulse Resp BP Pulse Ox 02/19/20 03:15 80 16 92 02/18/20 23:21 36.5 C 79 14 135/66 92 02/18/20 23:20 80 18 93 Resident Activity Tracking Resident Involvement: Resident Care Provided Care Provided: Adult Hospital Medicine
[2020-02-19] MEDS: KETOROLAC TROMETHAMINE 15 MG/ML VIAL IV PRN ×2 (08:04→14:02)
--- NOTE | 2020-02-19 08:22 | Gastroenterology Progress Note ---
Date of Service February 19, 2020 Assessment & Plan (1) Acute gallstone pancreatitis: Patient admitted with complications related to gallstone pancreatitis and cholangitis. He seems to be recovering well from his ERCP done urgently on Thursday evening. My perspective I would suggest completion of a and a course of antibiotics and a repeat ERCP in about 6 to 8 weeks. The patient is likely to undergo cholecystectomy early next week. I would suggest further evaluation of the patient's lower extremity edema perhaps the patient has underlying heart disease. Recommendations Advance diet as tolerated Cholecystectomy per general surgery Repeat ERCP in 6 to 8 weeks Continue course of antibiotics for total of 10 days Consider further evaluation of the patient's lower extremity edema Please call with any questions or concerns Admission and Anticipated Discharge Date Admission Date: February 17, 2020 Subjective The patient notes that he feels improved today. His biggest concern is his right lower extremity. He notes that he has had a chronic wound for many years and was previously followed by wound clinic near his home. Review of Systems Constitutional: no sweats Respiratory: no change in sputum and no hemoptysis Gastrointestinal: no bloating, no nausea and no hematemesis Physical Exam Constitutional: WD/WN, vitals as above Respiratory: normal respiratory effort; no respiratory distress Cardiovascular: Extremities: + edema Bilateral lower extremity edema with evidence of stasis dermatitis on the right Results & Data ([facility]) Vital Signs (Past 12 Hours) Vital Signs Temp Pulse Pulse Resp BP Pulse Ox 02/19/20 03:15 80 16 92 02/18/20 23:21 36.5 C 79 14 135/66 92 02/18/20 23:20 80 18 93 Laboratory Results Laboratory Results - last 24 hr 02/18/20 02/18/20 02/19/20 09:55 09:55 05:07 WBC 19.00 H 17.99 H RBC 4.33 L 4.19 L Hgb 13.3 L 13.0 L Hct 39.0 L 39.3 L MCV 90.1 93.8 MCH 30.7 31.0 MCHC 34.1 33.1 RDW Std Deviation 44.1 46.2 RDW Coeff of Josue 13.3 13.4 Plt Count 132 154 MPV 9.6 10.3 Immature Gran % (Auto) 0.4 0.7 Neut % (Auto) 87.3 83.6 Lymph % (Auto) 6.0 7.7 [place] % (Auto) 5.9 7.2 Eos % (Auto) 0.3 0.6 Baso % (Auto) 0.1 0.2 Neut # (Auto) 16.57 H 15.06 H Lymph # (Auto) 1.14 L 1.38 [place] # (Auto) 1.13 H 1.30 H Eos # (Auto) 0.06 0.10 Baso # (Auto) 0.02 0.03 Immature Gran # (Auto) 0.08 H 0.12 H Sodium 140 Potassium 3.7 Chloride 108 H Carbon Dioxide 26 Anion Gap 6.0 BUN 20 H Creatinine 0.98 Est Cr Clr Drug Dosing 110.3 Est GFR ( Amer) 99.5 Est GFR (Non-Af Amer) 85.8 BUN/Creatinine Ratio 20.6 H Glucose 136 H Calcium 8.2 L Phosphorus 2.4 L Magnesium 2.3 Total Bilirubin 1.3 H Direct Bilirubin 0.5 H AST 50 H ALT 156 H Alkaline Phosphatase 79 Total Protein 6.6 Albumin 3.1 L Globulin Albumin/Globulin Ratio Lipase 3514 H 02/19/20 05:07 WBC RBC Hgb Hct MCV MCH MCHC RDW Std Deviation RDW Coeff of Josue Plt Count MPV Immature Gran % (Auto) Neut % (Auto) Lymph % (Auto) [place] % (Auto) Eos % (Auto) Baso % (Auto) Neut # (Auto) Lymph # (Auto) [place] # (Auto) Eos # (Auto) Baso # (Auto) Immature Gran # (Auto) Sodium 141 Potassium 3.3 L Chloride 108 H Carbon Dioxide 29 Anion Gap 4.0 BUN 21 H Creatinine 1.03 Est Cr Clr Drug Dosing 105.0 Est GFR ( Amer) 93.7 Est GFR (Non-Af Amer) 80.8 BUN/Creatinine Ratio 20.0 Glucose 109 H Calcium 8.2 L Phosphorus Magnesium Total Bilirubin 1.2 H Direct Bilirubin AST 36 ALT 114 H Alkaline Phosphatase 83 Total Protein 6.8 Albumin 3.0 L Globulin 3.8 Albumin/Globulin Ratio 0.8 L Lipase 941 H
--- NOTE | 2020-02-19 09:08 | Surgery Progress Note ---
Date of Service February 19, 2020 Assessment & Plan (1) Acute gallstone pancreatitis: seen with Dr. Ferreira labs pending will let him recover from pancreatitis/cholangitis and plan lap haresh in a few days 02/19/20 Discussed with the patient the need for cholecystectomy and discussed this with Dr. Omalley and he feels that we could proceed for tomorrow his laboratory is improving regarding his pancreatitis but more so clinically he is resume some GI function We will plan for laparoscopic cholecystectomy cholangiogram for tomorrow risk and complication were explained to the patient including bleeding infection converting to an open procedure I would like to proceed accordingly Labs noted I will make appropriate changes fluids Subjective Patient feels much better today he still has some back pain although it subsiding he is passing some flatus no real abdominal complaints The patient notes that he feels improved today. His biggest concern is his right lower extremity. He notes that he has had a chronic wound for many years and was previously followed by wound clinic near his home. Physical Exam Physical Exam: Sitting up in the side of bed no complaints The abdomen is very prominent but no obvious tenderness Results & Data Vital Signs (Past 12 Hours) Vital Signs Temp Pulse Pulse Resp BP Pulse Ox 02/19/20 03:15 80 16 92 02/18/20 23:21 36.5 C 79 14 135/66 92 02/18/20 23:20 80 18 93 PG Care Time/CCT Total # of Minutes Spent Total Time Spent with Patient: Total time spent is greater than 50% in extrusion die coordinator rdination of care (as documented) at patient's floor/unit and/or counseling patient: Coding Level of Care Code 92850 Subseq Hosp Care Lvl 3 Diagnoses Acute gallstone pancreatitis K85.10
[2020-02-19] MEDS: MoRPHine SULFATE 4 MG/ML 1 ML CARP\\VIAL IV PRN ×3 (11:20→22:23)
--- NOTE | 2020-02-19 16:44 | Billing Data ---
Date of Service February 19, 2020 Coding Level of Care Code 20397 Subseq Hosp Care Lvl 3
[2020-02-20] MEDS: NSS + 20MEQ KCL 20 MEQ/1,000 ML BAG IV SCH ×5 (00:29→21:22)
[2020-02-20] MEDS: PIPERACILLIN/TAZOBACTAM 4.5 GM in DEXTROSE 5% 100 ML IV SCH ×3 (06:23→21:22)
[2020-02-20 06:33] LABS: Basophils # (auto) 0.04 K/uL (0-0.2); Basophils % (auto) 0.3 %; Eosinophils % (auto) 2.2 %; Hematocrit (blood only) 34.2 % (42-52); Hemoglobin 11.6 g/dL (14.0-18.0); Immature Granulocytes # (auto) 0.08 K/uL (0.00-0.02); Immature Granulocytes % (auto) 0.6 %; Lymphocytes # (auto) 1.65 K/uL (1.2-3.4); Lymphocytes % (auto) 12.3 %; Mean Corpuscular Hemoglobin 30.9 pg (25-34); Mean Corpuscular Hgb Conc 33.9 g/dL (32-36); Mean Corpuscular Volume 91.2 fL (80-100); Mean Platelet Volume 9.7 fL (7.4-10.4); Monocytes # (auto) 1.18 K/uL (0.11-0.59); Monocytes % (auto) 8.8 %; Neutrophils # (auto) 10.12 K/uL (1.4-6.5); Neutrophils % (auto) 75.8 %; Platelet Count 150 K/uL (130-400); RDW Coefficient of Variation 13.2 % (11.5-14.5); RDW Standard Deviation 43.9 fL (36.4-46.3); Red Blood Count 3.75 M/uL (4.7-6.1); White Blood Count 13.37 K/uL (4.8-10.8)
[2020-02-20 07:10] LABS: Albumin Level 2.6 gm/dl (3.4-5.0); Calcium 7.7 mg/dl (8.5-10.1); Creatinine Clr Calc Pharmacy 148.1 ml/min; Est GFR (African American) 120.2; Est GFR (Non-African American) 103.7; Potassium 3.5 mmol/L (3.5-5.1)
[2020-02-20 07:12] LABS: Albumin Globulin Ratio 0.7 (0.9-2); Bilirubin,Total 1.1 mg/dl (0.2-1); Globulin 3.5 gm/dl (2.5-4.0); Total Protein 6.1 gm/dl (6.4-8.2)
--- NOTE | 2020-02-20 09:41 | Surgery Progress Note ---
Date of Service February 20, 2020 Assessment & Plan (1) Acute gallstone pancreatitis: Our plan is to proceed with laparoscopic cholecystectomy cholangiogram today risk and complication were explained to the patient including bleeding infection converting to an open procedure and he like to proceed accordingly permit was signed and witnessed Present on Admission?: Yes Subjective Overall he is improving the back pain is subsided GI function is returning Physical Exam Physical Exam: Sitting on the side of the bed in a chair comfortable no distress the abdomen is distended laterally from his body habitus but there is no tenderness Results & Data Vital Signs (Past 12 Hours) Vital Signs Temp Pulse Pulse Resp BP Pulse Ox 02/20/20 07:41 37.1 C 75 20 128/76 92 02/20/20 03:22 75 16 92 02/19/20 23:48 36.4 C L 75 20 112/69 91 02/19/20 23:43 78 18 93 PG Care Time/CCT Total # of Minutes Spent Total Time Spent with Patient: Total time spent is greater than 50% in coordination of care (as documented) at patient's floor/unit and/or counseling patient: Coding Level of Care Code 66301 Subseq Hosp Care Lvl 3 Diagnoses Acute gallstone pancreatitis K85.10
[2020-02-20] MEDS: ONDANSETRON INJ 2 MG/ML 2 ML VIAL IV PRN ×2 (10:25→20:22)
[2020-02-20] MEDS ORDERED: DEXAMETHASONE SOD INJ 4 MG/ML VIAL ONE (10:27)
[2020-02-20] MEDS ORDERED: LIDOCAINE HCL 2% 2 ML VIAL/AMP(20MG/ML) INFIL ONE (10:27)
[2020-02-20] MEDS ORDERED: ROCURONIUM BROMIDE 10 MG/ML 5 ML VIAL IV ONE ×2 (10:27→12:46)
[2020-02-20] MEDS ORDERED: PROPOFOL IV EMULSION 10 MG/ML 20 ML VIAL IV ONE (10:27)
[2020-02-20] MEDS ORDERED: MIDAZOLAM HCL 1 MG/ML 2ML VIAL ONE (10:27)
[2020-02-20] MEDS ORDERED: ONDANSETRON INJ 2 MG/ML 2 ML VIAL ONE (10:27)
[2020-02-20] MEDS ORDERED: fentaNYL citrate 100 MCG/2 ML VIAL ONE ×2 (10:27→12:46)
[2020-02-20] MEDS ORDERED: LIDOCAINE/EPINEPHRINE 1% 20 ML VIAL ONE (10:56)
--- NOTE | 2020-02-20 11:26 | Hospitalist Progress Note ---
Date of Service February 20, 2020 Assessment & Plan (1) Acute gallstone pancreatitis: 54 yo M PMHx EMBER, HTN, morbid obesity admitted for acute gallstone pancreatitis and cholangitis. Gallstone pancreatitis/ cholangitis: - ERCP performed this admission by Dr. Omalley: biliary and pancreatic stents placed for treatment of cholangitis. - ERCP repeat in 6-8 weeks - On IV Zosyn - daily labs to follow resolution of pancreatitis/cholangitis. - improved WBC 13.3, patient is continuing to subjectively improve. - Patient's lipase, AST, ALT downtrending since ERCP. - General Surgery consulted and appreciate recommendations: lap haresh today EMBER: - Continue home CPAP at night HTN: - continue to monitor Diet: Full Liquid DVT ppx: SCDs due to upcoming lap haresh, ad gaurav on demand Code Status: Full code (2) Cholangitis: (3) Sleep apnea: (4) Hypertension: Admission and Anticipated Discharge Date Admission Date: February 17, 2020 Supervising Physician Co-Signing Physician Notes Resident Physician Supervision Note: I independently interviewed and examined the patient and verified the montiel history and physical, reviewed labs and image studies, discussed the case with the resident Dr. Paniagua and agree with the findings and care plan. Subjective Overnight had some mild abdominal pain, that improved throughout the night. Denies current abdominal pain, nausea/vomiting, shortness of breath, changes in bowel movement Review of Systems Review of Systems: All systems reviewed & are unremarkable except as noted in Subjective Physical Exam Constitutional: WD/WN, vitals as above Eyes: PERRL, conjunctivae normal, anicteric sclerae Neck: normal visual inspection Respiratory: normal respiratory effort, lungs clear to auscultation Cardiovascular: Rate/Rhythm: regular rate and regular rhythm Heart Sounds: normal S1 and normal S2; no gallop, no murmur and no cardiac rub Extremities: + pedal edema Gastrointestinal (Abdomen): normal bowel sounds, soft, nontender, no hepatosplenomegaly Skin: chronic appearing venous stasis changes (RLE) Neurologic: patellar DTR's 2+ bilat, sensation intact Psychiatric: A+Ox3, euthymic affect Results & Data Results & Data ([facility]) Vital Signs (Past 12 Hours) Vital Signs Temp Pulse Pulse Resp BP Pulse Ox 02/20/20 10:46 36.7 C 68 20 134/67 98 02/20/20 07:41 37.1 C 75 20 128/76 92 02/20/20 03:22 75 16 92 02/19/20 23:48 36.4 C L 75 20 112/69 91 02/19/20 23:43 78 18 93 Laboratory Results 02/20/20 02/20/20 Range/Units 06:17 06:17 WBC 13.37 H (4.8-10.8) K/uL RBC 3.75 L (4.7-6.1) M/uL Hgb 11.6 L (14.0-18.0) g/dL Hct 34.2 L (42-52) % MCV 91.2 (80-100) fL MCH 30.9 (25-34) pg MCHC 33.9 (32-36) g/dL RDW Std Deviation 43.9 (36.4-46.3) fL RDW Coeff of Josue 13.2 (11.5-14.5) % Plt Count 150 (130-400) K/uL MPV 9.7 (7.4-10.4) fL Immature Gran % (Auto) 0.6 % Neut % (Auto) 75.8 % Lymph % (Auto) 12.3 % [place] % (Auto) 8.8 % Eos % (Auto) 2.2 % Baso % (Auto) 0.3 % Neut # (Auto) 10.12 H (1.4-6.5) K/uL Lymph # (Auto) 1.65 (1.2-3.4) K/uL [place] # (Auto) 1.18 H (0.11-0.59) K/uL Eos # (Auto) 0.30 (0-0.5) K/uL Baso # (Auto) 0.04 (0-0.2) K/uL Immature Gran # (Auto) 0.08 H (0.00-0.02) K/uL Sodium 140 (136-145) mmol/L Potassium 3.5 (3.5-5.1) mmol/L Chloride 110 H (98-107) mmol/L Carbon Dioxide 24 (21-32) mmol/L Anion Gap 6.0 (3-11) BUN 16 (7-18) mg/dl Creatinine 0.73 D (0.6-1.4) mg/dl Est Cr Clr Drug Dosing 148.1 ml/min Est GFR ( Amer) 120.2 Est GFR (Non-Af Amer) 103.7 BUN/Creatinine Ratio 22.0 H (10-20) Glucose 114 H (70-99) mg/dl Calcium 7.7 L (8.5-10.1) mg/dl Total Bilirubin 1.1 H (0.2-1) mg/dl AST 27 (15-37) U/L ALT 78 (12-78) U/L Alkaline Phosphatase 81 (45-117) U/L Total Protein 6.1 L (6.4-8.2) gm/dl Albumin 2.6 L (3.4-5.0) gm/dl Globulin 3.5 (2.5-4.0) gm/dl Albumin/Globulin Ratio 0.7 L (0.9-2) Medications Administered Current Inpatient Medications Acetaminophen (Tylenol) 650 mg PO Q4H PRN PRN Reason: Mild Pain Stop: 03/18/20 19:35 Atropine Sulfate (Atropine Sulfate) 0.5 mg IV Q1M PRN PRN Reason: PACU Use-HR<40 &/or Bradycardi Stop: 02/20/20 19:30 Ephedrine Sulfate (Ephedrine Sulfate) 5 mg IV Q5M PRN PRN Reason: PACU Use Only-SBP<90 mmHg Stop: 02/20/20 19:30 Fentanyl Citrate (Fentanyl Citrate) 50 mcg IV Q5M PRN PRN Reason: PACU Use Only-Pain Stop: 02/20/20 19:30 Hydromorphone HCl (Dilaudid) 0.5 mg IV Q5M PRN PRN Reason: PACU Use Only-Pain Stop: 02/20/20 19:30 Potassium Chloride/Sodium Chloride (Normal Saline W/20 Meq Kcl) 20 meq in 1,000 mls @ 150 mls/hr IV .Q6H40M UGO Stop: 03/18/20 19:35 Last Admin: 02/20/20 08:23 Dose: 150 mls/hr Documented by: Piperacillin Sod/Tazobactam (Sod 4.5 gm/ Dextrose) 120 mls @ 30 mls/hr IV Q8H UGO; Protocol Stop: 02/27/20 21:59 Last Infusion: 02/20/20 10:10 Dose: Infused Documented by: Furosemide 10 mg/ Syringe 1 mls @ 4 mls/min IV DAILY UGO Stop: 03/19/20 08:59 Last Admin: 02/18/20 08:40 Dose: 4 mls/min Documented by: Promethazine HCl 6.25 mg/ (Sodium Chloride) 50.25 mls @ 204 mls/hr IV ONCE PRN PRN Reason: PACU Use Only-Nausea/Vomiting Stop: 02/20/20 19:31 Ketorolac Tromethamine (Toradol) 15 mg IV Q6H PRN PRN Reason: Moderate Pain Stop: 02/23/20 17:41 Last Admin: 02/19/20 14:02 Dose: 15 mg Documented by: Magnesium Hydroxide (Milk Of Magnesia) 30 ml PO Q6H PRN PRN Reason: Constipation Stop: 03/18/20 19:35 Miscellaneous Information (Consult) 1 ea N/A UD PRN PRN Reason: Consult Stop: 03/18/20 14:30 Morphine Sulfate (Morphine Sulfate) 4 mg IV Q4 PRN PRN Reason: Severe Pain Stop: 03/03/20 17:41 Last Admin: 02/19/20 22:23 Dose: 4 mg Documented by: Morphine Sulfate (Morphine Sulfate) 2 mg IV Q4 PRN PRN Reason: moderate pain/alt to toradol Stop: 03/03/20 17:41 Last Admin: 02/19/20 03:02 Dose: 2 mg Documented by: Ondansetron HCl (Zofran) 4 mg IV Q6H PRN PRN Reason: Nausea Stop: 03/18/20 19:35 Last Admin: 02/20/20 10:25 Dose: 4 mg Documented by: Ondansetron HCl (Zofran) 4 mg IV ONCE PRN PRN Reason: PACU Use Only-Nausea/Vomiting Stop: 02/20/20 19:31 Resident Activity Tracking Resident Involvement: Resident Care Provided Care Provided: Adult Hospital Medicine
[2020-02-20] MEDS ORDERED: ATROPINE SULFATE 0.1 MG/ML 10ML SYR IV PRN (11:30)
[2020-02-20] MEDS ORDERED: ePHEDrine sulfate 50 MG/ML AMP IV PRN (11:30)
[2020-02-20] MEDS ORDERED: HYDROmorphone INJ 2 MG/ML SYR/VIAL IV PRN (11:30)
[2020-02-20] MEDS ORDERED: ONDANSETRON INJ 2 MG/ML 2 ML VIAL IV PRN (11:30)
[2020-02-20] MEDS ORDERED: PROMETHAZINE HCL 6.25 MG in SODIUM CHLORIDE 0.9% 50 ML IV PRN (11:30)
--- NOTE | 2020-02-20 11:30 | Anesthesiology Consultation ---
Date of Service February 20, 2020 Assessment & Plan Chart Review Chart Review: Acceptable Risk for Surgery and Patient NOT seen in Pre Admission Testing Consults Requested none ASA ASA3 Proposed Anesthesia Anesthesia Type: General Risk / Benefits Reviewed With: PT / POA / Parent / Guardian, Accepts Plan and Informed Consent Obtained History Surgery Operation Date: 02/17/20 16:05 Proposed Procedures p Endoscopic Retrograde Cholangiopancreatogram - Celestine Omalley Operation Date: 02/20/20 07:00 Proposed Procedures p Laparoscopic Cholecystectomy - Jluis Ferreira MD Height/Weight Height: 5 ft 6 in Weight: 136 kg Allergies Allergy/AdvReac Type Severity Reaction Status Date / Time Bactrim Allergy Intermediate RASH Unverified 10/22/17 09:50 sulfamethoxazole Allergy Intermediate RASH Unverified 02/17/20 14:20 trimethoprim Allergy Intermediate RASH Unverified 02/17/20 14:20 cephalexin Allergy Mild RASH Unverified 02/17/20 14:20 oxycodone Allergy Unknown DIARRHEA,VO Unverified 02/17/20 14:20 MITING, Medications Home Medications Medication Instructions Recorded Confirmed Last Taken furosemide 20 mg tablet 20 mg PO DAILY tab 07/07/19 02/17/20 02/17/20 labetalol 100 mg tablet 200 mg PO BID tab 07/07/19 02/17/20 02/17/20 aspirin [Aspir-81] 81 mg PO QAM 02/17/20 02/17/20 02/17/20 multivitamin 1 tab PO QAM 02/17/20 02/17/20 02/17/20 Active Medications Generic Name Dose Route Start Last Admin Trade Name Freq PRN Reason Stop Dose Admin Potassium Chloride/Sodium Chloride 20 meq in 1,000 mls @ 150 mls/hr 02/17/20 20:30 02/20/20 08:23 Normal Saline W/20 Meq Kcl IV 03/18/20 19:35 150 mls/hr .Q6H40M UGO Administration Piperacillin Sod/Tazobactam 120 mls @ 30 mls/hr 02/17/20 22:00 02/20/20 10:10 Sod 4.5 gm/ Dextrose IV 02/27/20 21:59 Infused Q8H UGO Infusion Protocol Furosemide 10 mg/ Syringe 1 mls @ 4 mls/min 02/18/20 09:00 02/18/20 08:40 IV 03/19/20 08:59 4 mls/min DAILY UGO Administration Ketorolac Tromethamine 15 mg 02/18/20 17:42 02/19/20 14:02 Toradol IV 02/23/20 17:41 15 mg Q6H PRN Administration Moderate Pain Morphine Sulfate 4 mg 02/18/20 17:42 02/19/20 22:23 Morphine Sulfate IV 03/03/20 17:41 4 mg Q4 PRN Administration Severe Pain Morphine Sulfate 2 mg 02/18/20 17:42 02/19/20 03:02 Morphine Sulfate IV 03/03/20 17:41 2 mg Q4 PRN Administration moderate pain/alt to toradol Ondansetron HCl 4 mg 02/17/20 19:36 02/20/20 10:25 Zofran IV 03/18/20 19:35 4 mg Q6H PRN Administration Nausea NPO Date Last Intake of Fluids: 02/19/20 Time Last Intake of Fluids: 18:00 Last Intake of Fluids Comment: milk and water Date Last Intake of Solids: 02/19/20 Time Last Intake of Solids: 18:00 Last Intake of Solids Comment: rice krispies Past Medical History Medical History Cellulitis of right leg (Inactive) Exercise / Class Metabolic Activity II 4-5 Yardwork/Stairs/Walk up hill Past Family History Family History Other Colorectal cancer Coronary heart disease Past Surgical History Surgical History H/O colonoscopy Past Anesthesia History No Hx of Anesthesia Complications and No Family Hx of Anesthesia Complications History of PONV No Hx of PONV and No Hx of Motion Sickness Social History Smoking Status: Former smoker Do You Dip or Chew Tobacco: No Hx Alcohol Use: Yes (A couple times a year) Alcohol type: beer alcohol intake frequency: holidays/special occasions only Hx Substance Use: No Physical Exam Vital Signs Last Vital Signs Temp 36.7 C 02/20/20 10:46 Pulse 68 02/20/20 10:46 Resp 20 02/20/20 10:46 BP 134/67 02/20/20 10:46 Pulse Ox 98 02/20/20 10:46 Constitutional + morbidly obese ENMT Mouth: no dentition abnormality Thyromental Distance: > or= 3.5 Finger Breadths Mallampati Class: II Neck normal visual inspection Respiratory normal respiratory effort Auscultation: lungs clear to auscultation bilaterally Cardiovascular Rate/Rhythm: regular rate and regular rhythm Psychiatric Orientation: alert Testing Laboratory Results 02/20/20 06:17 02/20/20 06:17 Urine Color Yellow 02/17/20 12:10 Urine Appearance Clear (Clear) 02/17/20 12:10 Urine pH 5.5 (4.5-7.5) 02/17/20 12:10 Ur Specific [place] 1.016 (1.000-1.030) 02/17/20 12:10 Urine Protein Negative (Negative) 02/17/20 12:10 Urine Glucose (UA) Negative (Negative) 02/17/20 12:10 Urine Ketones Negative (Negative) 02/17/20 12:10 Urine Nitrite Negative (Negative) 02/17/20 12:10 Ur Leukocyte Esterase Negative (Negative) 02/17/20 12:10
[2020-02-20] MEDS: CONRAY 60% 50 ML VIAL INSTIL ONE ×2 (13:08→14:54)
[2020-02-20] MEDS ORDERED: GLYCOPYRROLATE 0.2 MG/ML VIAL ONE (13:27)
[2020-02-20] MEDS ORDERED: NEOSTIGMINE METHYLSULFATE 5 MG/5 ML SYR ONE (13:27)
--- NOTE | 2020-02-20 13:33 | Fluoroscopy Report ---
INTRAOPERATIVE CHOLANGIOGRAM HISTORY: Post cholecystectomy. FLUOROSCOPY TIME: 8 seconds. FINDINGS: Fluoroscopy was provided for an intraoperative cholangiogram status post cholecystectomy. C ontrast was injected through the cystic duct remnant. The common bile duct is normal in course and ca liber. There are no filling defects seen within the common bile duct to suggest a retained stone. A c ommon bile duct stent is in good position. Contrast extends into the small bowel. There is no intrahe patic bile duct dilatation. IMPRESSION: Fluoroscopy provided for an intraoperative cholangiogram status post cholecystectomy. A c ommon bile duct stent is in good position. Otherwise, no filling defects within the common bile duct. ACT 112: Negative or not required by law. Electronically signed by: Neal Douglas M.D. 02/20/2020 1:32 PM
--- NOTE | 2020-02-20 13:35 | Post Operative Brief Note ---
PG Immediate Post Op with CF Date of Surgery February 20, 2020 Pre & Post Diagnosis Operation Date: 02/17/20 16:05 Pre-Op Diagnosis: Choledocholithiasis with obstruction, cholangitis Post-Op Diagnosis: Choledocholithiasis with obstruction, cholangitis Operation Date: 02/20/20 07:00 Pre-Op Diagnosis: PANCREATITIS Post-Op Diagnosis: PANCREATITIS I identified the patient and participated in the time-out.: Yes Procedure Operation Date: 02/17/20 16:05 Actual Procedures p Endoscopic Retrograde Cholangiopancreatogram with gallstone removal, bile duct stent insertion, pancreatic stent insertion - Celestine Omalley Operation Date: 02/20/20 07:00 Actual Procedures p Laparoscopic Cholecystectomy with cholangiogram(Not Applicable) - Jluis Ferreira MD Surgeon Jluis Ferreira MD Speeder Frame Tender none Estimated Blood Loss 0 Findings Consistent with Post-Op Diagnosis Specimens Specimen Description: A. Gallbladder Drains Artem-Iglesias Drain
--- NOTE | 2020-02-20 13:55 | Operative Report ---
PG Post Operative Report Pre & Post Diagnosis Operation Date: 02/17/20 16:05 Pre-Op Diagnosis: Choledocholithiasis with obstruction, cholangitis Post-Op Diagnosis: Choledocholithiasis with obstruction, cholangitis Operation Date: 02/20/20 07:00 Pre-Op Diagnosis: PANCREATITIS Post-Op Diagnosis: PANCREATITIS I identified the patient and participated in the time-out.: Yes Procedure Operation Date: 02/17/20 16:05 Actual Procedures p Endoscopic Retrograde Cholangiopancreatogram with gallstone removal, bile duct stent insertion, pancreatic stent insertion - Celestine Omalley Operation Date: 02/20/20 07:00 Actual Procedures p Laparoscopic Cholecystectomy with cholangiogram(Not Applicable) - Jluis Ferreira MD The patient was brought into the operating theater general endotracheal anesthesia the abdomen was prepped Betadine solution properly draped timeout was had patient was identified made a small incision supraumbilically sufficient enough to accommodate a 5 mm port we first entered with a Veress needle followed by CO2 followed by 5 mm port direct realization liquid 11 mm epigastric and 09/30/2004 7 mm port subcostally with preemptive local analgesia 1% Xylocaine the patient was then turned in reverse Trendelenburg position rotated to the left able identify the gallbladder he was quite heavy is noted we tested that is for significant reverse Trendelenburg the gallbladder was placed under traction with the lateral port adhesions the gallbladder were taken down by blunt dissection we worked our way up to the neck of the gallbladder usually mostly blunt dissection we identified the lymph node of Calot and just inferior to that were able to identify the artery which was doubly clipped proximally one distally and divided and then we were able to get around the cystic duct quite easily at the takeoff of the gallbladder we clipped with a 5 mm clip small opening cystic duct was made #4 ureteral catheter transversing abdominal wall and a 14 Angiocath was positioned the cystic duct were able to get a free flow into the duodenum could visualize the stent but there was no filling defects appreciated Cholangiocath was removed the cystic duct was doubly secured with clips 5 mm clips the gallbladder is removed in antegrade fashion using electrocautery leaving much is posterior peritoneum was possible the patient did not have jessica cirrhosis but his liver was nodular and significant steatosis. Once the gallbladder is taken off the liver we placed an Endopouch and taken out intact through epigastric port subhepatic suprahepatic area was checked hemostasis appear satisfactory we at this point I elected to drain the subhepatic area using a 19 Frankie drain coming in medially epigastric port taken out through the lateral port attaching skin edge with 2-0 silk on direct visualization were able to retract all the individual trochars we placed the camera subcostal port and visualize the umbilical trocar site no adhesions were identified. Of note when we were dissecting down towards the neck of the gallbladder we changed our scope direct scope to a 30 mm scope. Individual trochars removed the last umbilical trocar wounds were closed with fascial stitch of 0 Vicryl for the epigastric port the other one for Monocryl was applied 2-0 Dexon was similarly used to subcutaneous tissue in the epigastric port and Steri-Strips applied procedure was toleratedwell by the patient estimated blood loss 10 cc addendum BSisiaida tan was present throughout the procedure and helped the retraction exposure and wound closure Surgeon Jluis Ferreira MD Bearing Press Machine Operator none Estimated Blood Loss 0 Findings Consistent with Post-Op Diagnosis Specimens gallbladder and contents Description of Procedure merda I attest to the content of the Intraoperative Record and any orders documented therein. Any exceptions are noted below.
[2020-02-20] MEDS: fentaNYL citrate 100 MCG/2 ML VIAL IV PRN ×2 (13:58→14:03)
--- NOTE | 2020-02-20 14:31 | Anesthesiology Progress Note ---
Date of Service February 20, 2020 Anesthesia Post Procedure Vital Signs Vital Signs: Temp Pulse Pulse Pulse Resp BP Pulse Ox 02/20/20 14:20 36.6 C 69 18 144/72 H 96 02/20/20 14:10 77 18 153/82 H 96 02/20/20 14:00 73 18 148/83 H 99 02/20/20 13:50 82 18 150/85 H 96 02/20/20 13:44 37.2 C 82 18 146/88 H 92 02/20/20 10:46 36.7 C 68 20 134/67 98 02/20/20 07:41 37.1 C 75 20 128/76 92 02/20/20 03:22 75 16 92 02/19/20 23:48 36.4 C L 75 20 112/69 91 02/19/20 23:43 78 18 93 02/19/20 16:44 37.2 C 73 17 139/67 94 Pain Intensity Abdomen: Pain Intensity: 3 Lower Back: Pain Intensity: 5 Transfer of Care Handoff Completed per policy Notes Mental Status: alert / awake / arousable Patient Amnestic to Procedure: Yes Nausea / Vomiting: adequately controlled Pain: adequately controlled Airway Patency, RR, SpO2: stable & adequate BP & HR: stable & adequate Hydration State: stable & adequate Anesthetic Complications: no major complications apparent
[2020-02-20] MEDS: MoRPHine SULFATE 2 MG/ML CARP IV PRN (16:41)
[2020-02-20] MEDS: KETOROLAC TROMETHAMINE 15 MG/ML VIAL IV PRN (20:22)
[2020-02-21] MEDS: NSS + 20MEQ KCL 20 MEQ/1,000 ML BAG IV SCH ×2 (04:05→10:08)
[2020-02-21] MEDS: MoRPHine SULFATE 2 MG/ML CARP IV PRN ×2 (04:08→21:45)
[2020-02-21] MEDS: PIPERACILLIN/TAZOBACTAM 4.5 GM in DEXTROSE 5% 100 ML IV SCH ×2 (05:41→12:43)
--- NOTE | 2020-02-21 06:58 | Surgery Progress Note ---
Date of Service February 21, 2020 Assessment & Plan (1) Acute gallstone pancreatitis: At this point will increase his diet Discussed with the patient that once he is comfortable tolerating a diet and his pain is controlled with oral analgesics he can likely be discharged if okay with the medical service I suspect he will stay here another day given his complaints that he has this morning Present on Admission?: Yes Subjective Complaining some back pain and also complains some epigastric pain abdominal wall no nausea had some liquids last night without any problem Physical Exam Physical Exam: Is alert coherent laying in bed comfortably Frankie drainage serosanguineous nonbilious The abdomen quite prominent related to his body habitus there is no tenderness trocar site dressing are dry Results & Data Vital Signs (Past 12 Hours) Vital Signs Temp Pulse Pulse Resp BP Pulse Ox 02/21/20 03:09 36.5 C 67 16 136/78 95 02/21/20 02:20 68 15 93 02/20/20 23:47 37.3 C 66 16 117/68 92 02/20/20 19:34 37.6 C H 84 20 134/73 94 PG Care Time/CCT Total # of Minutes Spent Total Time Spent with Patient: Total time spent is greater than 50% in coordination of care (as documented) at patient's floor/unit and/or counseling patient: Coding Level of Care Code None Diagnoses Acute gallstone pancreatitis K85.10
[2020-02-21 07:16] LABS: Basophils # (auto) 0.01 K/uL (0-0.2); Basophils % (auto) 0.1 %; Eosinophils # (auto) 0.02 K/uL (0-0.5); Eosinophils % (auto) 0.2 %; Hematocrit (blood only) 34.6 % (42-52); Hemoglobin 11.4 g/dL (14.0-18.0); Immature Granulocytes # (auto) 0.08 K/uL (0.00-0.02); Immature Granulocytes % (auto) 0.7 %; Lymphocytes % (auto) 11.1 %; Mean Corpuscular Hemoglobin 30.6 pg (25-34); Mean Corpuscular Hgb Conc 32.9 g/dL (32-36); Mean Platelet Volume 9.8 fL (7.4-10.4); Monocytes # (auto) 0.77 K/uL (0.11-0.59); Monocytes % (auto) 6.6 %; Neutrophils # (auto) 9.51 K/uL (1.4-6.5); Neutrophils % (auto) 81.3 %; Platelet Count 179 K/uL (130-400); RDW Coefficient of Variation 12.9 % (11.5-14.5); RDW Standard Deviation 44.3 fL (36.4-46.3); Red Blood Count 3.72 M/uL (4.7-6.1); White Blood Count 11.69 K/uL (4.8-10.8)
[2020-02-21 07:56] LABS: Albumin Level 2.4 gm/dl (3.4-5.0); BUN Creatinine Ratio 18.6 (10-20); Bilirubin Direct 0.2 mg/dl (0-0.2); Calcium 7.9 mg/dl (8.5-10.1); Creatinine Clr Calc Pharmacy 120.1 ml/min; Est GFR (African American) 110.3; Est GFR (Non-African American) 95.1; Potassium 3.8 mmol/L (3.5-5.1)
[2020-02-21 07:59] LABS: Albumin Globulin Ratio 0.7 (0.9-2); Bilirubin,Total 0.7 mg/dl (0.2-1); Globulin 3.5 gm/dl (2.5-4.0); Total Protein 5.9 gm/dl (6.4-8.2)
--- NOTE | 2020-02-21 08:28 | Anesthesiology Progress Note ---
Date of Service February 21, 2020 Anesthesia Post Procedure Vital Signs Vital Signs: Temp Pulse Pulse Pulse Resp BP Pulse Ox 02/21/20 07:16 37.0 C 75 16 149/67 H 93 02/21/20 03:09 36.5 C 67 16 136/78 95 02/21/20 02:20 68 15 93 02/20/20 23:47 37.3 C 66 16 117/68 92 02/20/20 19:34 37.6 C H 84 20 134/73 94 02/20/20 17:36 72 16 155/76 H 94 02/20/20 16:36 73 16 145/66 H 92 02/20/20 15:47 36.7 C 69 18 162/76 H 93 02/20/20 15:14 37.0 C 72 16 159/94 H 93 02/20/20 14:40 37 C 71 16 156/84 H 93 02/20/20 14:20 36.6 C 69 18 144/72 H 96 02/20/20 14:10 77 18 153/82 H 96 02/20/20 14:00 73 18 148/83 H 99 02/20/20 13:50 82 18 150/85 H 96 02/20/20 13:44 37.2 C 82 18 146/88 H 92 02/20/20 10:46 36.7 C 68 20 134/67 98 Pain Intensity Abdomen: Pain Intensity: 3 Lower Back: Pain Intensity: 5 Right Abdomen: Pain Intensity: 7 Notes Mental Status: alert / awake / arousable and participated in evaluation Patient Amnestic to Procedure: Yes Nausea / Vomiting: adequately controlled Pain: adequately controlled Airway Patency, RR, SpO2: stable & adequate BP & HR: stable & adequate Hydration State: stable & adequate Anesthetic Complications: no major complications apparent and Pt Satisfied with anesthetic care
[2020-02-21] MEDS: FUROSEMIDE 10 MG in SYRINGE 0 ML IV SCH (08:58)
[2020-02-21] MEDS: KETOROLAC TROMETHAMINE 15 MG/ML VIAL IV PRN (09:05)
--- NOTE | 2020-02-21 13:07 | Hospitalist Progress Note ---
Date of Service February 21, 2020 Assessment & Plan (1) Acute gallstone pancreatitis: 54 yo M PMHx EMBER, HTN, morbid obesity admitted for acute gallstone pancreatitis and cholangitis. Gallstone pancreatitis/ cholangitis: s/p lap haresh - ERCP performed this admission by Dr. Omalley: biliary and pancreatic stents placed for treatment of cholangitis. - ERCP repeat in 6-8 weeks - POD #1 from lap haresh - Frankie drain in place, - discontinued IV zosyn in favor of Augmentin 875 PO BID, will complete 10 days course with last dose being on AM of 02/26 - improved WBC 13.3, patient is continuing to subjectively improve. - Patient's lipase, AST, ALT downtrending since ERCP. EMBER: - Continue home CPAP at night HTN: - continue to monitor Diet: Full Liquid DVT ppx: SCDs Code Status: Full code Admission and Anticipated Discharge Date Admission Date: February 17, 2020 Supervising Physician Co-Signing Physician Notes Resident Physician Supervision Note: I independently interviewed and examined the patient and verified the montiel history and physical, reviewed labs and image studies, discussed the case with the resident Dr. Paniagua and agree with the findings and care plan. Subjective Following the procedure yesterday he has been able to tolerate oral intake without nausea or vomiting; endorses some mild abdominal pain that is localized over his incision sites, and has required IV pain medications. Review of Systems Review of Systems: All systems reviewed & are unremarkable except as noted in Subjective Physical Exam Constitutional: WD/WN, vitals as above Eyes: PERRL, conjunctivae normal, anicteric sclerae Neck: normal visual inspection Respiratory: normal respiratory effort, lungs clear to auscultation Cardiovascular: Rate/Rhythm: regular rate and regular rhythm Heart Sounds: normal S1 and normal S2; no gallop, no murmur and no cardiac rub Extremities: + pedal edema Gastrointestinal (Abdomen): Inspection/Auscultation: normal bowel sounds, + abdominal surgical incision (clean, dry, and intact with no surrounding erythema warmth or exudate) and + abdominal surgical drain present (serosanguinous drainage); abdomen not distended Percussion/Palpation: + abdomen tender (proximal to surgical sites) and abdomen soft Skin: chronic appearing venous stasis changes over RLE Neurologic: patellar DTR's 2+ bilat, sensation intact Psychiatric: A+Ox3, euthymic affect Results & Data Results & Data ([facility]) Vital Signs (Past 12 Hours) Vital Signs Temp Pulse Pulse Resp BP Pulse Ox 02/21/20 10:51 37.1 C 57 L 16 126/72 94 02/21/20 07:16 37.0 C 75 16 149/67 H 93 02/21/20 03:09 36.5 C 67 16 136/78 95 02/21/20 02:20 68 15 93 Laboratory Results 02/21/20 02/21/20 02/21/20 Range/Units 06:52 06:52 06:52 WBC 11.69 H (4.8-10.8) K/uL RBC 3.72 L (4.7-6.1) M/uL Hgb 11.4 L (14.0-18.0) g/dL Hct 34.6 L (42-52) % MCV 93.0 (80-100) fL MCH 30.6 (25-34) pg MCHC 32.9 (32-36) g/dL RDW Std Deviation 44.3 (36.4-46.3) fL RDW Coeff of Josue 12.9 (11.5-14.5) % Plt Count 179 (130-400) K/uL MPV 9.8 (7.4-10.4) fL Immature Gran % (Auto) 0.7 % Neut % (Auto) 81.3 % Lymph % (Auto) 11.1 % Sibley % (Auto) 6.6 % Eos % (Auto) 0.2 % Baso % (Auto) 0.1 % Neut # (Auto) 9.51 H (1.4-6.5) K/uL Lymph # (Auto) 1.30 (1.2-3.4) K/uL Sibley # (Auto) 0.77 H (0.11-0.59) K/uL Eos # (Auto) 0.02 (0-0.5) K/uL Baso # (Auto) 0.01 (0-0.2) K/uL Immature Gran # (Auto) 0.08 H (0.00-0.02) K/uL Sodium Cancelled 142 (136-145) mmol/L Potassium Cancelled 3.8 (3.5-5.1) mmol/L Chloride Cancelled 112 H (98-107) mmol/L Carbon Dioxide Cancelled 25 (21-32) mmol/L Anion Gap Cancelled 5.0 (3-11) BUN Cancelled 17 (7-18) mg/dl Creatinine Cancelled 0.90 (0.6-1.4) mg/dl Est Cr Clr Drug Dosing Cancelled 120.1 ml/min Est GFR ( Amer) Cancelled 110.3 Est GFR (Non-Af Amer) Cancelled 95.1 BUN/Creatinine Ratio 18.6 (10-20) Glucose 169 H (70-99) mg/dl Fasting Glucose Cancelled Calcium Cancelled 7.9 L (8.5-10.1) mg/dl Total Bilirubin Cancelled 0.7 (0.2-1) mg/dl Direct Bilirubin Cancelled 0.2 (0-0.2) mg/dl AST Cancelled 115 H (15-37) U/L ALT Cancelled 122 H (12-78) U/L Alkaline Phosphatase Cancelled 72 (45-117) U/L Total Protein Cancelled 5.9 L (6.4-8.2) gm/dl Albumin Cancelled 2.4 L (3.4-5.0) gm/dl Globulin 3.5 (2.5-4.0) gm/dl Albumin/Globulin Ratio 0.7 L (0.9-2) Lipase Cancelled 347 (73-393) U/L Medications Administered Current Inpatient Medications Acetaminophen (Tylenol) 650 mg PO Q4H PRN PRN Reason: Mild Pain Stop: 03/18/20 19:35 Amoxicillin/Clavulanate Potassium (Augmentin 875mg) 1 tab PO BIDM [facility] Stop: 03/02/20 16:59 Potassium Chloride/Sodium Chloride (Normal Saline W/20 Meq Kcl) 20 meq in 1,000 mls @ 50 mls/hr IV .Q20H [facility] Stop: 03/18/20 19:35 Last Admin: 02/21/20 10:08 Dose: 50 mls/hr Documented by: Furosemide 10 mg/ Syringe 1 mls @ 4 mls/min IV DAILY UGO Stop: 03/19/20 08:59 Last Admin: 02/21/20 08:58 Dose: 4 mls/min Documented by: Ketorolac Tromethamine (Toradol) 15 mg IV Q6H PRN PRN Reason: Moderate Pain Stop: 02/23/20 17:41 Last Admin: 02/21/20 09:05 Dose: 15 mg Documented by: Magnesium Hydroxide (Milk Of Magnesia) 30 ml PO Q6H PRN PRN Reason: Constipation Stop: 03/18/20 19:35 Morphine Sulfate (Morphine Sulfate) 4 mg IV Q4 PRN PRN Reason: Severe Pain Stop: 03/03/20 17:41 Last Admin: 02/19/20 22:23 Dose: 4 mg Documented by: Morphine Sulfate (Morphine Sulfate) 2 mg IV Q4 PRN PRN Reason: moderate pain/alt to toradol Stop: 03/03/20 17:41 Last Admin: 02/21/20 04:08 Dose: 2 mg Documented by: Ondansetron HCl (Zofran) 4 mg IV Q6H PRN PRN Reason: Nausea Stop: 03/18/20 19:35 Last Admin: 02/20/20 20:22 Dose: 4 mg Documented by: Resident Activity Tracking Resident Involvement: Resident Care Provided Care Provided: Adult Hospital Medicine
[2020-02-21] MEDS: AMOXICILLIN/CLAVULANATE 875 MG TAB PO SCH (17:21)
[2020-02-22] MEDS: NSS + 20MEQ KCL 20 MEQ/1,000 ML BAG IV SCH (04:14)
--- NOTE | 2020-02-22 07:15 | Surgery Progress Note ---
Date of Service Second postop day status post lap haresh cholangiogram February 22, 2020 Assessment & Plan (1) Acute gallstone pancreatitis: Patient can increase his diet as tolerated We will remove the Frankie drain later this morning or afternoon From my perspective the patient can be discharged when oral analgesics are sufficient oral intake sufficient and the drain will be removed before discharge We would see him back in our office in approximately 1 week after discharge he may shower no driving and no lifting anything heavier than 10 pounds till we see in the office Present on Admission?: Yes Subjective Was little upset yesterday and during the night because of any incontinence of bowel movement as well as afraid to eat more because of that issue Physical Exam Physical Exam: Patient is alert comfortable in no distress The abdomen is soft distended as preop mostly due to his large abdominal girth Dressing on trocar sites are dry Frankie drainage serosanguineous amount noted Results & Data Vital Signs (Past 12 Hours) Vital Signs Temp Pulse Pulse Resp BP Pulse Ox 02/22/20 03:31 68 19 93 02/21/20 23:28 75 18 92 02/21/20 23:23 36.9 C 71 24 142/75 H 92 Unable to see the lipase from yesterday on the lab screen but reported medical service is normal other labs noted also PG Care Time/CCT Total # of Minutes Spent Total Time Spent with Patient: Total time spent is greater than 50% in coordination of care (as documented) at patient's floor/unit and/or counseling patient: Coding Level of Care Code None Diagnoses Acute gallstone pancreatitis K85.10
[2020-02-22 07:30] LABS: Basophils # (auto) 0.02 K/uL (0-0.2); Basophils % (auto) 0.2 %; Eosinophils # (auto) 0.22 K/uL (0-0.5); Eosinophils % (auto) 1.7 %; Hematocrit (blood only) 34.5 % (42-52); Hemoglobin 11.6 g/dL (14.0-18.0); Immature Granulocytes # (auto) 0.13 K/uL (0.00-0.02); Lymphocytes # (auto) 1.48 K/uL (1.2-3.4); Lymphocytes % (auto) 11.6 %; Mean Corpuscular Hemoglobin 30.4 pg (25-34); Mean Corpuscular Hgb Conc 33.6 g/dL (32-36); Mean Corpuscular Volume 90.6 fL (80-100); Mean Platelet Volume 9.5 fL (7.4-10.4); Monocytes # (auto) 1.03 K/uL (0.11-0.59); Monocytes % (auto) 8.1 %; Neutrophils # (auto) 9.86 K/uL (1.4-6.5); Neutrophils % (auto) 77.4 %; Platelet Count 181 K/uL (130-400); RDW Standard Deviation 43.1 fL (36.4-46.3); Red Blood Count 3.81 M/uL (4.7-6.1); White Blood Count 12.74 K/uL (4.8-10.8)
[2020-02-22 07:57] LABS: Albumin Level 2.4 gm/dl (3.4-5.0); BUN Creatinine Ratio 15.6 (10-20); Calcium 8.3 mg/dl (8.5-10.1); Creatinine Clr Calc Pharmacy 118.8 ml/min; Est GFR (African American) 108.8; Est GFR (Non-African American) 93.9; Potassium 3.8 mmol/L (3.5-5.1)
[2020-02-22 08:00] LABS: Albumin Globulin Ratio 0.7 (0.9-2); Bilirubin,Total 0.8 mg/dl (0.2-1); Globulin 3.6 gm/dl (2.5-4.0)
[2020-02-22] MEDS: FUROSEMIDE 10 MG in SYRINGE 0 ML IV SCH (09:04)
[2020-02-22] MEDS: AMOXICILLIN/CLAVULANATE 875 MG TAB PO SCH (09:04)
[2020-02-22] MEDS: KETOROLAC TROMETHAMINE 15 MG/ML VIAL IV PRN (11:21)
--- NOTE | 2020-02-22 13:36 | Discharge Summary ---
Date of Service February 22, 2020 Admission HPI Per Admitting Provider 54 y/o M c/o abd pain. Pt states he has been having indigestion for about the last 3 months, especially with certain foods. He states that starting yesterday, he has been having stabbing abd pain. Pain is epigastric and moves to the lower abd and into his back. He has been having n/v, an episode about every hour. Last emesis was around 5a today. No diarrhea. He has never been sick like this before. He states that his abd is large at baseline, but he feels very distended to the point of pain. Pt denies fever, SOB, chest pain, LE pain. Pt has baseline R LE swelling that he wears compression stockings for. Pt was seen by GI in the ED and planning for ERCP this afternoon. Principal Diagnosis Cholelithiasis Discharge Exam Constitutional WD/WN, vitals as above Eyes PERRL, conjunctivae normal, anicteric sclerae Neck normal visual inspection Respiratory normal respiratory effort, lungs clear to auscultation Cardiovascular Rate/Rhythm: regular rate and regular rhythm Heart Sounds: normal S1 and normal S2; no gallop, no murmur and no cardiac rub Extremities: + pedal edema Gastrointestinal (Abdomen) normal bowel sounds, soft, nontender, no hepatosplenomegaly Inspection/Auscultation: normal bowel sounds and + abdominal surgical incision (clean, dry, and intact with no surrounding erythema warmth or exudate); abdomen not distended Percussion/Palpation: + abdomen tender (proximal to surgical sites) and abdomen soft Neurologic patellar DTR's 2+ bilat, sensation intact Psychiatric A+Ox3, euthymic affect Discharge Data Allergies Allergy/AdvReac Type Severity Reaction Status Date / Time Bactrim Allergy Intermediate RASH Unverified 10/22/17 09:50 sulfamethoxazole Allergy Intermediate RASH Unverified 02/17/20 14:20 trimethoprim Allergy Intermediate RASH Unverified 02/17/20 14:20 cephalexin Allergy Mild RASH Unverified 02/17/20 14:20 oxycodone Allergy Unknown DIARRHEA,VO Unverified 02/17/20 14:20 MITING, Consultations 02/17/20 14:31 ED Decision to Admit Stat 02/17/20 19:36 Consult Gastroenterology Routine 02/18/20 08:29 Consult General Surgery Routine Procedures Performed Operation Date: 02/17/20 16:05 Actual Procedures p Endoscopic Retrograde Cholangiopancreatogram with gallstone removal, bile duct stent insertion, pancreatic stent insertion - Celestine Omalley Operation Date: 02/20/20 07:00 Actual Procedures p Laparoscopic Cholecystectomy with cholangiogram(Not Applicable) - Jluis Ferreira MD Ordered Studies 02/17/20 11:58 CT abd pelvis wo con Stat 02/17/20 15:30 [place] ERCP biliary ductal Routine 02/20/20 09:00 [place] cholangiogram OR Routine Hospital Course (1) Acute gallstone pancreatitis: 54 yo M PMHx EMBER, HTN, morbid obesity admitted for acute gallstone pancreatitis and cholangitis. Gallstone pancreatitis/ cholangitis: - ERCP performed this admission by Dr. Omalley: biliary and pancreatic stents placed for treatment of cholangitis; repeat in 6-8 weeks - continue Augmentin 875 PO BID, will complete 10 days course with last dose being on AM of 02/26 - questran once daily until follow-up with surgery - improved WBC 13.3, patient is continuing to subjectively improve. - Patient's lipase, AST, ALT downtrending since ERCP, repeat testing in one week - Surgery return in approximately 1 week; may shower, no driving, and no lifting anything heavier than 10 pounds till seen in the office Total Time Total Time Spent Total Time Spent (In Minutes): 30 Discharge Plan Discharge Items Patient Disposition: Home - Self-Care Reason For Visit: PANCREATITIS Discharge Diagnosis: gallstone pancreatis, cholangitis Activity: Per Instructions section Lifting: No more than 10 pounds Bathing Comment: may shower, no soaking in tubs Exercise/Sports: Wait until after follow-up appointment Non-emergency contact: Primary Care Provider, Surgeon and Biometrics Instructor Call non-emergency contact if: you have any medication questions, your symptoms worsen, your temperature is above 101, your wound has increased redness, your wound has increased drainage and your wound pain has increased Follow-up/Referrals: Jluis Ferreira MD [Surgeon] - 02/29/20 2:00 pm (Please call to schedule follow up in clinic within 1 week) Shi Gunn CRNP [Primary Care Provider] - Diet: Low Fat Addtl Attending Provider Instructions: You were admitted to the hospital for abdominal pain and vomiting. You had a cat scan of your belly which showed that you had pancreatitis, likely from a gallstone. The GI doctor saw you and performed an ERCP, a procedure where they remove the stone, and placed two stents to keep your gallbladder ducts open. You were given IV antibiotics and put on bowel rest with no food in order to help treat your infection of the gallbladder, and to help "calm down" your irritated pancreas. General Surgery performed a gallbladder removal surgery through several small incisions in your belly to help prevent future gallstone blockages. We are discharging on an antibiotic that you should continue to take twice a day over the next five days, with your last dose being the morning of February 26. Pending Studies at Discharge: No Stand-Alone Forms: My [facility], Smoking Cessation Medications and DC Order Prescriptions: New amoxicillin-pot clavulanate [Augmentin] 875-125 mg tablet 1 tab PO Q12H 5 Days Qty: 10 RF: 0 cholestyramine (with sugar) [Questran] 4 gram powder 4 gm PO DAILY Qty: 378 RF: 0 amoxicillin-pot clavulanate [Augmentin] 875-125 mg tablet 1 tab PO Q12H 5 Days Qty: 10 RF: 0 cholestyramine (with sugar) [Questran] 4 gram powder 4 gm PO DAILY Qty: 378 RF: 0 Continued labetalol 100 mg tablet 200 mg PO BID RF: 0 furosemide 20 mg tablet 20 mg PO DAILY RF: 0 multivitamin Tablet 1 tab PO QAM RF: 0 aspirin [Aspir-81] 81 mg Tablet,Delayed Release (Dr/Ec) 81 mg PO QAM RF: 0 Discharge Orders: Discharge Order (Routine); Ordered 02/22/20 Ordered By: Asa Galindo/Other Patient Handouts: Low-Fat Cooking Tips, Adding Flavor to Low-Fat Meals, ED Diet, Low Fat Admission Data Admit Date/Time: 02/17/20 15:29 Attending Provider: Kalee Barakat Admit Provider: Georgette Robbins Primary Care Provider: Shi Gunn Other Providers: Toni Mcdonald ; Georgette Robbins ; Omid Rico ; Jluis Ferreira Other Interventions: Discharge Summary Assessment (RN) Last Done: 02/22/20 15:29 DC Date/Time DO NOT enter until pt leaves facility: 02/22/20 16:07 Supervising Physician Co-Signing Physician Notes Resident Physician Supervision Note: I independently interviewed and examined the patient and verified the montiel history and physical, reviewed labs and image studies, discussed the case with the resident Dr. Paniagua and agree with the findings and care plan. Resident Activity Tracking Resident Involvement: Resident Care Provided Care Provided: Adult Hospital Medicine
== END 2020-02-22 16:07 | disposition home or self-care (01) | DRG 418 ==
LOC: ED 11:29 → OR 15:28 → 3W 15:29 → SUATTDRO 15:29

== ENCOUNTER 2020-03-10 13:05 | Inpatient (IN) ==
[2020-03-10 14:09] LABS: Basophils # (auto) 0.02 K/uL (0-0.2); Basophils % (auto) 0.2 %; Eosinophils # (auto) 0.13 K/uL (0-0.5); Eosinophils % (auto) 1.4 %; Hematocrit (blood only) 36.9 % (42-52); Hemoglobin 12.6 g/dL (14.0-18.0); Immature Granulocytes # (auto) 0.03 K/uL (0.00-0.02); Immature Granulocytes % (auto) 0.3 %; Lymphocytes # (auto) 2.26 K/uL (1.2-3.4); Lymphocytes % (auto) 23.6 %; Mean Corpuscular Hemoglobin 30.3 pg (25-34); Mean Corpuscular Hgb Conc 34.1 g/dL (32-36); Mean Corpuscular Volume 88.7 fL (80-100); Mean Platelet Volume 9.9 fL (7.4-10.4); Monocytes # (auto) 0.66 K/uL (0.11-0.59); Monocytes % (auto) 6.9 %; Neutrophils # (auto) 6.48 K/uL (1.4-6.5); Neutrophils % (auto) 67.6 %; Platelet Count 172 K/uL (130-400); RDW Coefficient of Variation 12.6 % (11.5-14.5); RDW Standard Deviation 40.6 fL (36.4-46.3); Red Blood Count 4.16 M/uL (4.7-6.1); White Blood Count 9.58 K/uL (4.8-10.8)
[2020-03-10 14:29] LABS: Albumin Level 3.4 gm/dl (3.4-5.0); BUN Creatinine Ratio 16.2 (10-20); Calcium 9.2 mg/dl (8.5-10.1); Creatinine Clr Calc Pharmacy 112.7 ml/min; Est GFR (African American) 100.7; Est GFR (Non-African American) 86.9; Potassium 4.4 mmol/L (3.5-5.1)
[2020-03-10 14:31] LABS: Albumin Globulin Ratio 0.8 (0.9-2); Bilirubin,Total 0.9 mg/dl (0.2-1); Globulin 4.4 gm/dl (2.5-4.0); Total Protein 7.8 gm/dl (6.4-8.2)
--- NOTE | 2020-03-10 14:49 | Emergency Department Note ---
Impression & Plan Abdominal pain, Pancreatitis, Cellulitis ED Provider Note INFORMANT: [Patient] ED PROVIDER(S): Kevin rCespo MD CHIEF COMPLAINT: Abdominal pain PLAN: Disposition: Admitted Condition: [Good] MEDICAL DECISION MAKING: Patient presented and had upper abdominal discomfort. He had a very mild cellulitis around the trocar site of the right abdomen. His blood work did reveal some mild pancreatitis with normal LFTs. He underwent CT imaging and this did reveal pancreatitis findings as well. There was some mild cellulitis noted of the abdominal wall. The patient was given IV Zosyn. He was also given IV hydration with lactated Ringer's. I did discuss the case with Dr. Whyte of gastroenterology. He recommended admission for hydration and further work-up including MRCP. I also reviewed the case with Dr. Omalley of general surgery because of the very mild cellulitis noted around the trocar site. She agreed with antibiotics and noted no need for further surgical intervention. I did [facility] the [facility] The patient was evaluated by the team in the ER and admitted for further management. Triage Nursing notes reviewed and agree them. [Additional history obtained from] patient's [Prior medical records reviewed] recent admission for gallstone pancreatitis Vital Signs: reviewed and remarkable for [no significant abnormalities] Differential diagnosis: Abdominal wall cellulitis, postop wound infection, pancreatitis, appendicitis, testicular torsion, infections, diverticulitis, UTI, obstruction, mesenteric ischemia, aortic pathology, inflammatory bowel disease, renal colic, PUD,biliary pathology, hernia, volvulus, constipation, as well as other pathologies. Diagnostics interpreted by me: Imaging studies: CT imaging of the abdomen pelvis as noted above. I refer you to the EMR for further details. Consultation(s): Gastroenterology Internal medicine General surgery HPI: The patient is a 54 year old male who presents to the Emergency Room with complaints of mild upper abdominal pain as well as redness at his right lower abdomen trocar site. This started today and is stable. The patient also notes the following associated symptoms, none. Denies fever.. The patient has taken no medication for relieving factors. Current pain is rated as 4/10. Patient r ecently underwent ERCP as well as cholecystectomy for gallstone pancreatitis. He was treated here at the [facility]. The noted his redness around the trocar site on the right side of his abdomen. He was brought to the ER for evaluation. He does have a history of cellulitis of the right leg. Pt denies LOC, headache, fevers, chills, diaphoresis, visual changes, neck pain, chest pain, breathing difficulties, nausea, vomiting, back pain, melena, hematochezia, urinary symptoms, numbness, weakness, lymphadenopathy, rash, or other complaints. ROS: See above HPI for pertinent positives & negatives. A total of [10] systems reviewed and were otherwise negative. PAST MEDICAL HISTORY:[See Below] gallstone pancreatitis PAST SURGICAL HISTORY:[See Below]ERCP, cholecystectomy FAMILY HISTORY:[See Below] SOCIAL HISTORY:[See Below] HOME MEDICATIONS:[See Below] ALLERGIES:[See Below] VITALS:[See Below] PHYSICAL EXAMINATION: GENERAL: Awake, alert, mildly uncomfortable-appearing, in no distress HENT: Normocephalic, atraumatic. Oropharynx unremarkable. EYES: Normal conjunctiva. Sclera non-icteric. NECK: Inspection normal. Non-tender. Supple. No nuchal rigidity. FROM. No masses. RESPIRATORY: Clear to auscultation. No wheezes. No rales. Normal respiratory effort. CARDIAC: Normal rate. Normal rhythm. No murmurs. No rubs. Extremities warm and well perfused. Pulses equal. No JVD. GI: Soft, mildly-distended. Mild epigastric tenderness to palpation. No rebound or guarding. No masses. There is redness surrounding the right lower abdomen trocar site. No purulent drainage. Clean dry and intact otherwise. RECTAL: Deferred. MUSCULOSKELETAL: Atraumatic. Chest examination reveals no tenderness. The back is symmetrical on inspection without obvious abnormality. There is no CVA tenderness to palpation. No joint edema. LOWER EXTREMITIES: Calves are equal size bilaterally and non-tender. No edema. No discoloration. NEURO: Normal sensorium. No sensory or motor deficits noted. SKIN: No rash or jaundice noted. ED COURSE: [Critical Care:] [None] Kevin Crespo MD Past Med/Surg History Medical History Cellulitis of right leg (Inactive) Surgical History H/O colonoscopy S/P laparoscopic cholecystectomy (02/20/20) Laparoscopic Cholecystectomy with cholangiogram Dr. Ferreira 02/20/20 Family History Other Colorectal cancer Coronary heart disease Social History Preferred Language: Nauruan Communication Ability: Effective Oracle Solutions Architect Required: No Beliefs That Will Affect Care: None marital status: Current Living Situation: Spouse Current Living Situation Comment: Lives with Belinda, current occupational status: employed Feels Safe at Home: Yes Smoking Status: Former smoker Second Hand Exposure: Yes ; Hx Alcohol Use: Yes (A couple times a year) Alcohol type: beer Hx Substance Use: No Allergies Allergies Allergy/AdvReac Type Severity Reaction Status Date / Time Bactrim Allergy Intermediate RASH Unverified 10/22/17 09:50 sulfamethoxazole Allergy Intermediate RASH Verified 03/10/20 14:21 trimethoprim Allergy Intermediate RASH Verified 03/10/20 14:21 cephalexin Allergy Mild RASH Verified 03/10/20 14:21 oxycodone Allergy Unknown DIARRHEA,VO Verified 03/10/20 14:21 MITING, Home Meds Home Medications Medication Instructions Recorded Confirmed furosemide 20 mg tablet 20 mg PO DAILY tab 07/07/19 03/10/20 labetalol 100 mg tablet 200 mg PO BID tab 07/07/19 03/10/20 aspirin [Aspir-81] 81 mg PO QAM 02/17/20 03/10/20 multivitamin 1 tab PO QAM 02/17/20 03/10/20 Previous Rx's Medication Instructions Recorded cholestyramine (with sugar) 4 gm PO DAILY #378 gm 02/22/20 [Questran] Results & Data (ED) Vital Signs Vital Signs - 24 hr 03/10/20 13:39 03/10/20 14:00 03/10/20 14:05 Temperature 37.0 C Temperature Source Oral Pulse Rate 66 60 59 L Pulse Rate from SpO2 Sensor 60 60 Respiratory Rate 20 13 15 Respiratory Effort / Characteristics Non-Labored Spontaneous Respiratory Depth Normal Respiratory Pattern Regular Blood Pressure 146/83 H 161/76 H Blood Pressure Mean 104 97 Blood Pressure Position Sitting Pulse Oximetry 98 98 98 Oxygen Delivery Method Room Air Room Air Room Air Sepsis Recent Fever Within 48 Hours No Sepsis New/Unexplained Change in Mental Status N/A Sepsis Action Taken by Nursing No Action Required 03/10/20 14:30 03/10/20 14:31 03/10/20 15:00 Temperature Temperature Source Pulse Rate 58 L 60 59 L Pulse Rate from SpO2 Sensor 58 L 61 Respiratory Rate 16 16 15 Respiratory Effort / Characteristics Respiratory Depth Respiratory Pattern Blood Pressure 148/73 H 139/82 Blood Pressure Mean 95 103 Blood Pressure Position Pulse Oximetry 97 98 Oxygen Delivery Method Sepsis Recent Fever Within 48 Hours Sepsis New/Unexplained Change in Mental Status Sepsis Action Taken by Nursing 03/10/20 15:17 03/10/20 15:18 03/10/20 15:30 Temperature Temperature Source Pulse Rate 72 66 60 Pulse Rate from SpO2 Sensor 67 67 61 Respiratory Rate 8 L 22 14 Respiratory Effort / Characteristics Respiratory Depth Respiratory Pattern Blood Pressure 132/72 119/70 Blood Pressure Mean 91 91 Blood Pressure Position Pulse Oximetry 98 99 98 Oxygen Delivery Method Sepsis Recent Fever Within 48 Hours Sepsis New/Unexplained Change in Mental Status Sepsis Action Taken by Nursing 03/10/20 15:31 03/10/20 16:00 03/10/20 16:01 Temperature Temperature Source Pulse Rate 62 56 L 56 L Pulse Rate from SpO2 Sensor 61 56 L 56 L Respiratory Rate 20 16 17 Respiratory Effort / Characteristics Respiratory Depth Respiratory Pattern Blood Pressure 152/81 H Blood Pressure Mean 122 Blood Pressure Position Pulse Oximetry 97 98 97 Oxygen Delivery Method Sepsis Recent Fever Within 48 Hours Sepsis New/Unexplained Change in Mental Status Sepsis Action Taken by Nursing 03/10/20 16:53 Temperature Temperature Source Pulse Rate 58 L Pulse Rate from SpO2 Sensor Respiratory Rate 21 Respiratory Effort / Characteristics Respiratory Depth Respiratory Pattern Blood Pressure Blood Pressure Mean Blood Pressure Position Pulse Oximetry Oxygen Delivery Method Sepsis Recent Fever Within 48 Hours Sepsis New/Unexplained Change in Mental Status Sepsis Action Taken by Nursing Laboratory Data Result diagrams: 03/10/20 14:00 03/10/20 14:00 Lab Results 03/10/20 03/10/20 Range/Units 14:00 14:00 WBC 9.58 (4.8-10.8) K/uL RBC 4.16 L (4.7-6.1) M/uL Hgb 12.6 L (14.0-18.0) g/dL Hct 36.9 L (42-52) % MCV 88.7 (80-100) fL MCH 30.3 (25-34) pg MCHC 34.1 (32-36) g/dL RDW Std Deviation 40.6 (36.4-46.3) fL RDW Coeff of Josue 12.6 (11.5-14.5) % Plt Count 172 (130-400) K/uL MPV 9.9 (7.4-10.4) fL Immature Gran % (Auto) 0.3 % Neut % (Auto) 67.6 % Lymph % (Auto) 23.6 % Lanier % (Auto) 6.9 % Eos % (Auto) 1.4 % Baso % (Auto) 0.2 % Neut # (Auto) 6.48 (1.4-6.5) K/uL Lymph # (Auto) 2.26 (1.2-3.4) K/uL Lanier # (Auto) 0.66 H (0.11-0.59) K/uL Eos # (Auto) 0.13 (0-0.5) K/uL Baso # (Auto) 0.02 (0-0.2) K/uL Immature Gran # (Auto) 0.03 H (0.00-0.02) K/uL Sodium 140 (136-145) mmol/L Potassium 4.4 (3.5-5.1) mmol/L Chloride 107 (98-107) mmol/L Carbon Dioxide 28 (21-32) mmol/L Anion Gap 5.0 (3-11) BUN 16 (7-18) mg/dl Creatinine 0.97 (0.6-1.4) mg/dl Est Cr Clr Drug Dosing 112.7 ml/min Est GFR ( Amer) 100.7 Est GFR (Non-Af Amer) 86.9 BUN/Creatinine Ratio 16.2 (10-20) Glucose 91 (70-99) mg/dl Calcium 9.2 (8.5-10.1) mg/dl Total Bilirubin 0.9 (0.2-1) mg/dl AST 26 (15-37) U/L ALT 49 (12-78) U/L Alkaline Phosphatase 83 (45-117) U/L Total Protein 7.8 (6.4-8.2) gm/dl Albumin 3.4 (3.4-5.0) gm/dl Globulin 4.4 H (2.5-4.0) gm/dl Albumin/Globulin Ratio 0.8 L (0.9-2) Lipase 817 H (73-393) U/L Administered Medications Lactated Ringer's (Lr) 1,000 mls @ 250 mls/hr IV .Q4H UGO Stop: 04/09/20 16:14 Last Admin: 03/10/20 17:28 Dose: 250 mls/hr Documented by: [id number] Ioversol (Optiray 320 100ml) 93 ml IV ONCE PRN PRN Reason: Interaction Checking Stop: 03/14/20 15:08 Last Admin: 03/10/20 15:10 Dose: 93 ml Documented by: [id number] Discontinued Medications Piperacillin Sod/Tazobactam Sod (Zosyn) 4.5 gm in 120 mls @ 240 mls/hr IV NOW ONE Stop: 03/10/20 17:10 Last Admin: 03/10/20 17:28 Dose: 240 mls/hr Documented by: [id number] Discharge Plan Visit Data *Final* Discharge Date/Time: 03/10/20 17:37 Chief Complaint: Abdominal Pain Stated Complaint: RIGHTSIDE ABD PAIN ED Provider: Kevin Crespo Discharge Problem: Abdominal pain, Pancreatitis, Cellulitis Patient Disposition: Admitted As Inpatient Discharge Instructions Interventions: ED Discharge Assessment Last Done: 03/10/20 17:37
[2020-03-10] MEDS ORDERED: IOVERSOL 100ml IV PRN (15:09)
--- NOTE | 2020-03-10 15:27 | CT Scan Report ---
CT OF THE ABDOMEN AND PELVIS WITH CONTRAST CLINICAL HISTORY: Upper abdominal pain. Recent cholecystectomy. Right abdominal cellulitis. COMPARISON STUDY: CT of the abdomen and pelvis 02/17/2020. TECHNIQUE: Following IV administration of 93 mL of Optiray-320, axial images of the abdomen and pelvi s were obtained from the lung bases to the proximal femurs. Images were reviewed in the axial, sagitt al, and coronal planes. IV contrast was administered without complication. Automated exposure contro l was utilized for the study. A dose lowering technique was utilized adhering to the principles of A GABE. CT DOSE: 1267.70 mGycm FINDINGS: Lung bases are unremarkable. Fatty infiltration of the liver is noted. There is pneumobilia . There is trace gas within the pancreatic duct. Stents within the common bile duct and main pancreat ic duct are noted. There is no biliary ductal dilatation. Main, left and right portal veins are paten t. Splenic vein is patent. Mild peripancreatic infiltration is noted. This was also shown on exam of February 17, 2020. Infiltration adjacent to the pancreatic body and neck has increased. Interval developm ent of an ill-defined 5.4 x 3.7 cm hypodense collection anterior to the pancreatic body and tail is n oted. No additional peripancreatic fluid collections are present. There is no evidence for a bowel ob struction. The spleen, adrenal glands and kidneys are normal. There is no hydronephrosis. The appendi x is normal. Fat-containing left inguinal hernia is present. There are no suspicious osseous lesions. Fat-containing umbilical hernia is present. There is no abnormality within the cholecystectomy bed. There is minimal subcutaneous infiltration and skin thickening of the upper abdomen. IMPRESSION: 1. Persistent peripancreatic infiltration suggestive of acute pancreatitis. Interval development of a n ill-defined 5.4 x 3.7 cm hypodense collection anterior to the pancreatic body and tail. This favors a developing acute peripancreatic fluid collection. 2. Biliary and pancreatic stents in place. No biliary ductal dilatation. Pneumobilia. 3. Fatty infiltration of liver. 4. No abnormality within the cholecystectomy bed. Minimal subcutaneous infiltration of the upper abdo cathy wall which may be postsurgical or reflect cellulitis. ACT 112: Negative or not required by law. Electronically signed by: Vasu Martin M.D. 03/10/2020 3:26 PM
[2020-03-10] MEDS ORDERED: PIPERACILLIN/TAZOBACTAM 4.5 GM/120 ML BAG IV ONE (16:41)
[2020-03-10] MEDS ORDERED: PIPERACILL/TAZOBAC CONSULT ACTIVE PRN (16:41)
--- NOTE | 2020-03-10 17:02 | History & Physical Report ---
Date of Service March 10, 2020 Assessment & Plan (1) Acute pancreatitis: CT a/p on admission showed persistent acute pancreatitis & interval development of an ill-defined 5.4 x 3.7 cm hypodense collection. Lipase was 800 on admission which is lower than his prior presentation, but higher than the christina of his last admission as well. - GI consulted - Request MRCP which has been ordered - NPO, LR @ 250 mL/hr per GI - IV abx -> Zosyn (2) Wound, surgical, infected: Very mild cellulitis at the site of his drain after his lap haresh. Only started in the last 1-2 days. - Should be covered by Zosyn as there's no purulence to suggest Staph infection - Can broaden with vanc if no improvement in next 24 hours. - Already seen by surgery (3) Hypertension: BP presently 155/80; likely somewhat worsened by stress. - Continue beta-ike (4) DVT prophylaxis: SCDs - Low DVT risk per admission calculator & will avoid heparin in case he needs repeat ERCP. History of Present Illness Primary Care Provider: LISA Rinaldi Mr. Cox is a pleasant 54yo M w/ hx of gallstone pancreatitis and HTN who presents with continued epigastric and LUQ pain as well as small surgical site infection. Mr. Cox was in the hospital ~3 weeks ago due to pancreatitis from a gallstone. At that admission, he had an ERCP with CBD stone removal and stent placed, as well as a lap haresh. He was discharged, but notes that he has continued to have some LUQ and back pain along with continued "gas" that occurs when he puts pressure on the epigastric region. This occurs mostly with sitting up (in the car) or laying on his left side. Since his discharge, he has been lying on his b ack on his right side which reduces the pain. He does not note a lot of pain after eating, though he reports occasionally having heart burn for which his PCP recommended taking Mylanta. He did this yesterday which seemed to help. He also notes that one of the sites of his lap haresh surgery (specifically his drain site) has become more red over the last 2 days. The other sites have healed well, but this one is bigger due to the drain being present for several days and just in the last 2 days has become redder with some mild streaks noted. He denies any fevers/chills, or any other systemic symptoms. Allergies Allergy/AdvReac Type Severity Reaction Status Date / Time Bactrim Allergy Intermediate RASH Unverified 10/22/17 09:50 sulfamethoxazole Allergy Intermediate RASH Verified 03/10/20 14:21 trimethoprim Allergy Intermediate RASH Verified 03/10/20 14:21 cephalexin Allergy Mild RASH Verified 03/10/20 14:21 oxycodone Allergy Unknown DIARRHEA,VO Verified 03/10/20 14:21 MITING, Home Medications Home Medications Medication Instructions Recorded Confirmed Type furosemide 20 mg tablet 20 mg PO DAILY tab 07/07/19 03/10/20 History labetalol 100 mg tablet 200 mg PO BID tab 07/07/19 03/10/20 History aspirin [Aspir-81] 81 mg PO QAM 02/17/20 03/10/20 History multivitamin 1 tab PO QAM 02/17/20 03/10/20 History cholestyramine (with sugar) 4 gm PO DAILY #378 gm 02/22/20 03/10/20 Rx [Questran] Past Med/Surg History Medical History Cellulitis of right leg (Inactive) Surgical History H/O colonoscopy S/P laparoscopic cholecystectomy (02/20/20) Laparoscopic Cholecystectomy with cholangiogram Dr. Ferreira 02/20/20 Family History Other Colorectal cancer Coronary heart disease Social History Preferred Language: Romansh Communication Ability: Effective Proofer Black And White Required: No Beliefs That Will Affect Care: None marital status: Current Living Situation: Spouse Current Living Situation Comment: Lives with Belinda, current occupational status: employed Feels Safe at Home: Yes Smoking Status: Former smoker Second Hand Exposure: Yes ; Hx Alcohol Use: Yes (A couple times a year) Alcohol type: beer Hx Substance Use: No Review of Systems Review of Systems: All systems reviewed & are unremarkable except as noted in HPI & below Physical Exam Constitutional: WD/WN, vitals as above + morbidly obese Eyes: EOM intact bilaterally; no conjunctival abnormality ENMT: external ear and nose normal, oropharynx normal Neck: trachea midline, no thyromegaly normal visual inspection Respiratory: normal respiratory effort, lungs clear to auscultation no respiratory distress Cardiovascular: RRR, no murmur, no edema Gastrointestinal (Abdomen): Inspection/Auscultation: + abdominal surgical incision (Several healed, one with mild redness and streaking); + abdomen abnormal to inspection Percussion/Palpation: abdomen soft; abdomen nontender, no guarding and abdomen not rigid Musculoskeletal: no cyanosis or clubbing, extremities motor strength 5/5 Skin: no rashes, warm and dry Neurologic: moves all extremities and awake Psychiatric: Orientation: alert, oriented to person and cooperative Results & Data Results & Data ([facility]) Vital Signs (Past 12 Hours) Vital Signs Temp Pulse Resp BP Pulse Ox 03/10/20 14:05 59 L 15 98 03/10/20 14:00 60 13 161/76 H 98 03/10/20 13:39 37.0 C 66 20 146/83 H 98 Code Status & VTE Plan VTE Prophylaxis Plan VTE Prophylaxis will be ordered: Yes PG Care Time/CCT Total # of Minutes Spent Total Time Spent with Patient: Total time spent is greater than 50% in coordination of care (as documented) at patient's floor/unit and/or counseling patient: Coding Level of Care Code 09223 Initial Inpt Care Lvl 3 Diagnoses Acute pancreatitis K85.10 Acute pancreatitis complication: unspecified Pancreatitis type: biliary Wound, surgical, infected T81.49XA Hypertension I10 DVT prophylaxis Z29.9 (1) Acute pancreatitis Acute pancreatitis complication: unspecified Pancreatitis type: biliary Qualified Code(s): K85.10 - Biliary acute pancreatitis without necrosis or infection
[2020-03-10] MEDS: LACTATED RINGER'S 1,000 ML IV SCH ×2 (17:28→20:40)
--- NOTE | 2020-03-10 17:33 | Surgery Consultation ---
Date of Consultation March 10, 2020 Assessment & Plan (1) Acute gallstone pancreatitis: s/p ercp/ stent x 2 and lap haresh now with developing fluid collection anterior to the pancreas. Agree with admission, npo/ bowel rest, IV hydration, follow labs. Explained that this may resolve conservatively or may turn into a pseudocyst. Currently no sign of infected necrosis or infected fluid collection. Present on Admission?: Yes (2) Wound, surgical, infected: No drainable fluid. Should respond to antibiotics. Present on Admission?: Yes History of Present Illness Reason for Consultation: right lower quadrant trocar site inflammation recurrent pancreatitis Requesting Physician: Kevin Huitron Attending Physician: Dr. Lozano History of Present Illness 54 yr old man recently admitted with gallstone pancreatitis s/p ercp and placement of biliary and pancreatic duct stents and s/p lap cholecystectomy by Dr. Ferreira. Was seen in office on 02/28 and doing well. Over last two days, right lateral trocar site has become inflamed, red, streaks noted. No fevers. Also developed recurrent abdominal pain. Came to ER and found to have pancreatic fluid collection as well as small wound infection of right lateral trocar site. Plan for admission to medicine. Notes he has been eating fine the last few days. No change in bowel habits. Allergies Allergy/AdvReac Type Severity Reaction Status Date / Time Bactrim Allergy Intermediate RASH Unverified 10/22/17 09:50 sulfamethoxazole Allergy Intermediate RASH Verified 03/10/20 14:21 trimethoprim Allergy Intermediate RASH Verified 03/10/20 14:21 cephalexin Allergy Mild RASH Verified 03/10/20 14:21 oxycodone Allergy Unknown DIARRHEA,VO Verified 03/10/20 14:21 MITING, Home Medications Home Medications Medication Instructions Recorded Confirmed Type furosemide 20 mg tablet 20 mg PO DAILY tab 07/07/19 03/10/20 History labetalol 100 mg tablet 200 mg PO BID tab 07/07/19 03/10/20 History aspirin [Aspir-81] 81 mg PO QAM 02/17/20 03/10/20 History multivitamin 1 tab PO QAM 02/17/20 03/10/20 History cholestyramine (with sugar) 4 gm PO DAILY #378 gm 02/22/20 03/10/20 Rx [Questran] Patient History Medical History Cellulitis of right leg (Inactive) Surgical History H/O colonoscopy S/P laparoscopic cholecystectomy (02/20/20) Laparoscopic Cholecystectomy with cholangiogram Dr. Ferreira 02/20/20 Family History Other Colorectal cancer Coronary heart disease Social History Preferred Language: Malay Communication Ability: Effective Safety Glass Installer Required: No Beliefs That Will Affect Care: None marital status: Current Living Situation: Spouse Current Living Situation Comment: Lives with Belinda, current occupational status: employed Feels Safe at Home: Yes Smoking Status: Former smoker Second Hand Exposure: Yes ; Hx Alcohol Use: Yes (A couple times a year) Alcohol type: beer Hx Substance Use: No Review of Systems Review of Systems: All systems reviewed & are unremarkable except as noted in HPI & below Physical Exam Constitutional: + obese; no acute distress Eyes: + anicteric sclerae Respiratory: normal respiratory effort; no respiratory distress Auscultation: lungs clear to auscultation bilaterally Cardiovascular: Rate/Rhythm: regular rate and regular rhythm Gastrointestinal (Abdomen): Inspection/Auscultation: normal bowel sounds; abdomen not distended Percussion/Palpation: abdomen soft; abdomen nontender, no guarding and no abdominal mass right lateral trocar site with 2 x1 cm area of cellulitic change, no abscess. Neurologic: moves all extremities; no focal motor deficits Psychiatric: Orientation: alert and oriented x 3 Results & Data Vital Signs (Past 12 Hours) Vital Signs Temp Pulse Resp BP Pulse Ox 03/10/20 17:00 55 L 15 03/10/20 16:53 58 L 21 03/10/20 16:01 56 L 17 152/81 H 97 03/10/20 16:00 56 L 16 98 03/10/20 15:31 62 20 97 03/10/20 15:30 60 14 119/70 98 03/10/20 15:18 66 22 132/72 99 03/10/20 15:17 72 8 L 98 03/10/20 15:00 59 L 15 139/82 03/10/20 14:31 60 16 98 03/10/20 14:30 58 L 16 148/73 H 97 03/10/20 14:05 59 L 15 98 03/10/20 14:00 60 13 161/76 H 98 03/10/20 13:39 37.0 C 66 20 146/83 H 98 Laboratory Results AST/ALT/ t. bili/ alk phos normal wbc count normal lipase elevated into 800s (was normal on 02/20) Abnormal lab results 03/10/20 03/10/20 Range/Units 14:00 14:00 RBC 4.16 L (4.7-6.1) M/uL Hgb 12.6 L (14.0-18.0) g/dL Hct 36.9 L (42-52) % [place] # (Auto) 0.66 H (0.11-0.59) K/uL Immature Gran # (Auto) 0.03 H (0.00-0.02) K/uL Globulin 4.4 H (2.5-4.0) gm/dl Albumin/Globulin Ratio 0.8 L (0.9-2) Lipase 817 H (73-393) U/L Diagnostic Findings CT OF THE ABDOMEN AND PELVIS WITH CONTRAST CLINICAL HISTORY: Upper abdominal pain. Recent cholecystectomy. Right abdominal cellulitis. COMPARISON STUDY: CT of the abdomen and pelvis 02/17/2020. TECHNIQUE: Following IV administration of 93 mL of Optiray-320, axial images of the abdomen and pelvis were obtained from the lung bases to the proximal femurs. Images were reviewed in the axial, sagittal, and coronal planes. IV contrast was administered without complication. Automated exposure control was utilized for the study. A dose lowering technique was utilized adhering to the principles of ALARA. CT DOSE: 1267.70 mGycm FINDINGS: Lung bases are unremarkable. Fatty infiltration of the liver is noted. There is pneumobilia. There is trace gas within the pancreatic duct. Stents within the common bile duct and main pancreatic duct are noted. There is no biliary ductal dilatation. Main, left and right portal veins are patent. Splenic vein is patent. Mild peripancreatic infiltration is noted. This was also shown on exam of February 17, 2020. Infiltration adjacent to the pancreatic body and neck has increased. Interval development of an ill-defined 5.4 x 3.7 cm hypodense collection anterior to the pancreatic body and tail is noted. No additional peripancreatic fluid collections are present. There is no evidence for a bowel obstruction. The spleen, adrenal glands and kidneys are normal. There is no hydronephrosis. The appendix is normal. Fat-containing left inguinal hernia is present. There are no suspicious osseous lesions. Fat-containing umbilical hernia is present. There is no abnormality within the cholecystectomy bed. There is minimal subcutaneous infiltration and skin thickening of the upper abdomen. IMPRESSION: 1. Persistent peripancreatic infiltration suggestive of acute pancreatitis. Inte rval development of an ill-defined 5.4 x 3.7 cm hypodense collection anterior to the pancreatic body and tail. This favors a developing acute peripancreatic fluid collection. 2. Biliary and pancreatic stents in place. No biliary ductal dilatation. Pneumobilia. 3. Fatty infiltration of liver. 4. No abnormality within the cholecystectomy bed. Minimal subcutaneous infiltration of the upper abdominal wall which may be postsurgical or reflect cellulitis. ACT 112: Negative or not required by law.
[2020-03-10] MEDS ORDERED: ONDANSETRON INJ 2 MG/ML 2 ML VIAL IV PRN (18:37)
[2020-03-10] MEDS ORDERED: ACETAMINOPHEN 325 MG TAB PO PRN (18:37)
[2020-03-10] MEDS: LABETALOL HCL 200 MG TAB PO SCH (20:35)
[2020-03-10] MEDS: PIPERACILLIN/TAZOBACTAM 4.5 GM in DEXTROSE 5% 100 ML IV SCH (22:01)
[2020-03-11] MEDS: LACTATED RINGER'S 1,000 ML IV SCH ×6 (00:13→20:25)
[2020-03-11] MEDS: PIPERACILLIN/TAZOBACTAM 4.5 GM in DEXTROSE 5% 100 ML IV SCH ×2 (05:18→14:06)
[2020-03-11 06:28] LABS: Hematocrit (blood only) 32.6 % (42-52); Hemoglobin 11.4 g/dL (14.0-18.0); Mean Corpuscular Hemoglobin 30.8 pg (25-34); Mean Corpuscular Volume 88.1 fL (80-100); Mean Platelet Volume 9.9 fL (7.4-10.4); Platelet Count 129 K/uL (130-400); RDW Coefficient of Variation 12.6 % (11.5-14.5); White Blood Count 7.88 K/uL (4.8-10.8)
[2020-03-11 06:38] LABS: INR 1.1 (0.9-1.1); Partial Thromboplastin Time 27.2 Seconds (21.0-31.0); Prothrombin Time 11.6 Seconds (9.0-12.0)
[2020-03-11 06:56] LABS: Albumin Level 2.8 gm/dl (3.4-5.0); BUN Creatinine Ratio 13.7 (10-20); Calcium 8.7 mg/dl (8.5-10.1); Creatinine Clr Calc Pharmacy 125.9 ml/min; Est GFR (African American) 111.8; Est GFR (Non-African American) 96.5; Magnesium 2.1 mg/dl (1.8-2.4)
[2020-03-11 07:03] LABS: Albumin Globulin Ratio 0.8 (0.9-2); Bilirubin,Total 1.1 mg/dl (0.2-1); Globulin 3.5 gm/dl (2.5-4.0); Total Protein 6.3 gm/dl (6.4-8.2)
[2020-03-11] MEDS: LABETALOL HCL 200 MG TAB PO SCH ×2 (08:23→20:30)
--- NOTE | 2020-03-11 08:58 | Magnetic Resonance Report ---
MR MRCP HISTORY: Mid abdominal pain. Pancreatitis and pancreatic fluid collection TECHNIQUE: MRCP of the abdomen was performed without contrast according to standard department protoc ol. COMPARISON STUDY: Abdomen and pelvis CT 03/10/2020. FINDINGS: The lung bases are clear. The gallbladder is surgically absent. Pneumobilia is again noted. Normal caliber common bile duct measuring 7 mm. A 4 mm round filling defects seen within the proxima l common bile duct on image 61 of series 5. This favors a small gas bubble but is technically indeter minate. The patient's pancreatic duct stent and common bile duct stent are better appreciated on the prior CT examination.. Mild edema both within and surrounding the pancreas consistent with acute panc reatitis. There is again noted a 6.0 x 3.7 cm fluid collection anterior to the tail the pancreas. Thi s remains unchanged. No hydronephrosis. The adrenal glands and spleen are unremarkable. The main port al vein is patent. Suboptimal evaluation of the main pancreatic duct due to the pancreatic inflammato ry change. However, the main pancreatic duct appears to be normal and course and caliber. IMPRESSION: 1. Redemonstration of the acute pancreatitis with an associated peripancreatic fluid collection/cyst anterior to the tail. 2. Status post cholecystectomy. Pneumobilia is again noted. 3. The patient's known common bile duct and main pancreatic duct stents are better appreciated on the recent CT examination. 4. A 4 mm filling defect within the proximal common bile duct which favors a gas bubble given the pne umobilia. ACT 112: Negative or not required by law. Electronically signed by: Neal Douglas M.D. 03/11/2020 8:56 AM
--- NOTE | 2020-03-11 13:40 | Gastrointestinal Consultation ---
Date of Consultation March 11, 2020 Assessment & Plan (1) Cellulitis: (2) Abdominal pain: (3) Acute pancreatitis: (4) Fluid collection of pancreas: benign fluid collection, possible developing pseudocyst. No evidence for infection of it. his abdominal pains have improved on aggressive hydration. on abx for cellulitis. Recs: 1. start low residue diet today and advance as tolerated 2. continue aggressive IV hydration 3.continue abx for cellulitis 4.will need repeat CT A/P in 2 months to further assess the pancreatic fluid collection; no endoscopic intervention is warranted at this time rest as per primary team Thank you for allowing me to participate in the care of this patient History of Present Illness Attending Physician: Dmitri Douglas 54 yo male here with pancreatitis and cellulitis. He underwent ERCP recently with Dr. Omalley and subsequent CCY, was doing well at home but then noticed redness around his surgical site and has been having epigastric abdominal pains/RUQ sometimes going to his back, not as bad as his initial episode of pancreatitis. CT A/P shows pancreatitis with pancreatic fluid collection. afebrile. Denies any n/v, fevers, chills. labs reviewed. Allergies Allergy/AdvReac Type Severity Reaction Status Date / Time Bactrim Allergy Intermediate RASH Unverified 10/22/17 09:50 sulfamethoxazole Allergy Intermediate RASH Verified 03/10/20 14:21 trimethoprim Allergy Intermediate RASH Verified 03/10/20 14:21 cephalexin Allergy Mild RASH Verified 03/10/20 14:21 oxycodone Allergy Unknown DIARRHEA,VO Verified 03/10/20 14:21 MITING, Home Medications Home Medications Medication Instructions Recorded Confirmed Type furosemide 20 mg tablet 20 mg PO DAILY tab 07/07/19 03/10/20 History labetalol 100 mg tablet 200 mg PO BID tab 07/07/19 03/10/20 History aspirin [Aspir-81] 81 mg PO QAM 02/17/20 03/10/20 History multivitamin 1 tab PO QAM 02/17/20 03/10/20 History cholestyramine (with sugar) 4 gm PO DAILY #378 gm 02/22/20 03/10/20 Rx [Questran] Patient History Medical History Cellulitis of right leg (Inactive) Surgical History H/O colonoscopy S/P laparoscopic cholecystectomy (02/20/20) Laparoscopic Cholecystectomy with cholangiogram Dr. Ferreira 02/20/20 Family History Other Colorectal cancer Coronary heart disease Social History Preferred Language: Hebrew Communication Ability: Effective Scallop Cutter Required: No Beliefs That Will Affect Care: None marital status: Current Living Situation: Spouse Current Living Situation Comment: Lives with Belinda, current occupational status: employed Other Information That Helps Us Care for You: No Feels Safe at Home: Yes Safety Concerns: Feels Safe At This Time Smoking Status: Former smoker Do You Dip or Chew Tobacco: No ; Second Hand Exposure: Yes ; Hx Alcohol Use: Yes Alcohol type: other Hx Substance Use: No Review of Systems Constitutional: no fever, no chills and no weight loss Eyes: as per Subjective / HPI Ear, Nose, Mouth, Throat: as per Subjective / HPI Respiratory: no dyspnea and no dyspnea on exertion Cardiovascular: no chest pain and no palpitations Gastrointestinal: as per Subjective / HPI Musculoskeletal: no joint pain and no swelling Integumentary: no rash and no lesions Neurologic: no numbness and no paresthesia Psychiatric: no depression and no anxiety Endocrine: no fatigue Hematologic / Lymphatic: no easy bleeding and no easy bruising Physical Exam Constitutional: WD/WN, vitals as above Eyes: EOM intact bilaterally Neck: normal visual inspection Respiratory: normal respiratory effort, lungs clear to auscultation Cardiovascular: RRR, no murmur, no edema Gastrointestinal (Abdomen): Inspection/Auscultation: abdomen normal to inspection; abdomen not distended Percussion/Palpation: abdomen soft; abdomen nontender and no hepatosplenomegaly Musculoskeletal: Extremities: no cyanosis Gait: normal gait Skin: no rashes, warm and dry Neurologic: moves all extremities Psychiatric: A+Ox3, euthymic affect Results & Data ([facility]) Vital Signs (Past 12 Hours) Vital Signs Temp Pulse Resp BP Pulse Ox 03/11/20 07:28 36.9 C 71 16 120/77 92 PG Care Time/CCT Total # of Minutes Spent Total Time Spent with Patient: Total time spent is greater than 50% in coordination of care (as documented) at patient's floor/unit and/or counseling patient: Coding Level of Care Code 39684 Inpt Consult Level 4 Diagnoses Cellulitis L03.90 Abdominal pain R10.9 Acute pancreatitis K85.10 Acute pancreatitis complication: unspecified Pancreatitis type: biliary Fluid collection of pancreas K86.89 (1) Acute pancreatitis Acute pancreatitis complication: unspecified Pancreatitis type: biliary Qualified Code(s): K85.10 - Biliary acute pancreatitis without necrosis or infection
--- NOTE | 2020-03-11 14:10 | Surgery Progress Note ---
Date of Service March 11, 2020 Assessment & Plan (1) Acute gallstone pancreatitis: s/p ercp/ stent x 2 and lap haresh now with developing fluid collection anterior to the pancreas. OK to start advancing diet today. (2) Wound, surgical, infected: No drainable fluid. Should respond to antibiotics. Subjective Pt seen in consult yesterday. Today notes his pain is improved. No drainage from right sided wound infection. Overall feeling better. Hungry. Review of Systems Review of Systems: All systems reviewed & are unremarkable except as noted in HPI & below Physical Exam Constitutional: + obese; no acute distress Eyes: + anicteric sclerae Respiratory: normal respiratory effort; no respiratory distress Auscultation: lungs clear to auscultation bilaterally Cardiovascular: Rate/Rhythm: regular rate and regular rhythm Gastrointestinal (Abdomen): Inspection/Auscultation: normal bowel sounds; abdomen not distended Percussion/Palpation: abdomen soft; abdomen nontender, no guarding and no abdominal mass right lateral trocar site wound infection is improving, less redness Neurologic: moves all extremities; no focal motor deficits Psychiatric: Orientation: alert and oriented x 3 Results & Data Vital Signs (Past 12 Hours) Vital Signs Temp Pulse Resp BP Pulse Ox 03/11/20 07:28 36.9 C 71 16 120/77 92 Laboratory Results Abnormal lab results 03/10/20 03/11/20 03/11/20 Range/Units 14:00 06:06 06:06 RBC 3.70 L (4.7-6.1) M/uL Hgb 11.4 L (14.0-18.0) g/dL Hct 32.6 L (42-52) % Plt Count 129 L (130-400) K/uL Glucose 112 H (70-99) mg/dl Total Bilirubin 1.1 H (0.2-1) mg/dl Total Protein 6.3 L (6.4-8.2) gm/dl Albumin 2.8 L (3.4-5.0) gm/dl Globulin 4.4 H (2.5-4.0) gm/dl Albumin/Globulin Ratio 0.8 L 0.8 L (0.9-2) Lipase 817 H 622 H (73-393) U/L
[2020-03-11] MEDS ORDERED: DAPTOMYCIN CONSULT ACTIVE PRN (18:25)
--- NOTE | 2020-03-11 18:31 | Hospitalist Progress Note ---
Date of Service March 11, 2020 Assessment & Plan (1) Fluid collection of pancreas: gurpreet-pancreatic fluid collection present on CT yesterday. not felt to be abscess. seen by GI and gen surg - observe; repeat imaging in 2 weeks. since no abdominal pain at this time and lipase trending down -- ok for clears by GI. repeat lipase in am. (2) Acute pancreatitis: CT a/p on admission showed persistent acute pancreatitis & interval development of an ill-defined 5.4 x 3.7 cm gurpreet-pancreatic fluid collection. NOT felt to be infectious. Despite the persistent pancreatic inflammation his lipase is much lower than during prior admission (was in 4000+ range). No necrotic process seen. Allow clears. LR at 250cc/hr currently; has had this rate for 24+ hours; will cut rate to 200cc/hr; then 150cc/hr tomorrow. GI and gen surg consults appreciated. Repeat lipase in am. (3) Wound, surgical, infected: mild cellulitis at the site of his former MAGDA drain from lap haresh. change zosyn to IV daptomycin for MRSA coverage and Unasyn IV. appreciate gen surg consultation. (4) Hypertension: Continue beta-ike (5) Morbid obesity with BMI of 45.0-49.9, adult: BMI 49.5 (6) Thrombocytopenia: mild likely 2nd to above issues repeat CBC am for stability not low enough to preclude DVT proph with heparin (7) S/P laparoscopic cholecystectomy: 02/20/20 [facility] preceded by ERCP for choledocholithiasis (8) DVT prophylaxis: no procedures planned by GI or surgery thus, start heparin 7500 units (BMI nearly 50) TID life partner updated by phone 03/11/20 Admission and Anticipated Discharge Date Admission Date: March 10, 2020 Subjective patient denies abdominal pain today. gassiness and bloating he had had pre-hospital is improved today. no nausea or emesis. cellulitis right side of abdomen is unchanged/not worse. Review of Systems Constitutional: no fever and no chills Respiratory: no dyspnea Cardiovascular: no chest pain Physical Exam Constitutional: + morbidly obese; no acute distress and no altered mental status Eyes: + anicteric sclerae ENMT: external ear and nose normal, oropharynx normal Respiratory: normal respiratory effort, lungs clear to auscultation Cardiovascular: Rate/Rhythm: regular rate and regular rhythm Heart Sounds: normal S1 and normal S2; no murmur Vessels: posterior tibial pulses present and dorsalis pedis pulses present; no JVD Extremities: no edema Gastrointestinal (Abdomen): Inspection/Auscultation: + abdomen distended (mild) and normal bowel sounds Percussion/Palpation: abdomen nontender, no guarding and no hepatosplenomegaly Skin: no jaundice upper right abdomen - prior MAGDA drain site with surrounding warm erythema, about 5-6 cm in largest diameter, irregular in shape; no drainage Psychiatric: A+Ox3, euthymic affect Results & Data Results & Data ([facility]) Vital Signs (Past 12 Hours) Vital Signs Temp Pulse Resp BP Pulse Ox 03/11/20 16:27 36.4 C L 58 L 16 151/84 H 96 03/11/20 07:28 36.9 C 71 16 120/77 92 Laboratory Results Laboratory Results - last 24 hr 03/11/20 03/11/20 03/11/20 06:06 06:06 06:06 WBC 7.88 RBC 3.70 L Hgb 11.4 L Hct 32.6 L MCV 88.1 MCH 30.8 MCHC 35.0 RDW Std Deviation 41.0 RDW Coeff of Josue 12.6 Plt Count 129 L MPV 9.9 PT 11.6 INR 1.1 APTT 27.2 PTT Ratio 1.0 Sodium 140 Potassium 4.0 Chloride 107 Carbon Dioxide 28 Anion Gap 5.0 BUN 12 Creatinine 0.87 Est Cr Clr Drug Dosing 125.9 Est GFR ( Amer) 111.8 Est GFR (Non-Af Amer) 96.5 BUN/Creatinine Ratio 13.7 Glucose 112 H Calcium 8.7 Magnesium 2.1 Total Bilirubin 1.1 H AST 20 ALT 37 Alkaline Phosphatase 70 Total Protein 6.3 L Albumin 2.8 L Globulin 3.5 Albumin/Globulin Ratio 0.8 L Lipase 622 H Diagnostic Findings MRCP - IMPRESSION: 1. Redemonstration of the acute pancreatitis with an associated peripancreatic fluid collection/cyst anterior to the tail. 2. Status post cholecystectomy. Pneumobilia is again noted. 3. The patient's known common bile duct and main pancreatic duct stents are better appreciated on the recent CT examination. 4. A 4 mm filling defect within the proximal common bile duct which favors a gas bubble given the pneumobilia. PG Care Time/CCT Total # of Minutes Spent Total Time Spent with Patient: Total time spent is greater than 50% in coordination of care (as documented) at patient's floor/unit and/or counseling patient: Coding Level of Care Code 24431 Subseq Hosp Care Lvl 2 Diagnoses Fluid collection of pancreas K86.89 Acute pancreatitis K85.10 Acute pancreatitis complication: unspecified Pancreatitis type: biliary Wound, surgical, infected T81.49XA Hypertension I10 Hypertension type: essential hypertension Morbid obesity with BMI of 45.0-49.9, adult E66.01; Z68.42 Thrombocytopenia D69.6 S/P laparoscopic cholecystectomy Z90.49 DVT prophylaxis Z29.9 (1) Hypertension Hypertension type: essential hypertension Qualified Code(s): I10 - Essential (primary) hypertension (2) Acute pancreatitis Acute pancreatitis complication: unspecified Pancreatitis type: biliary Qualified Code(s): K85.10 - Biliary acute pancreatitis without necrosis or infection
[2020-03-11] MEDS: DAPTOmycin 375 MG in SYRINGE 0 ML IV SCH (19:36)
[2020-03-11] MEDS: AMPICILLIN/SULBACTAM SOD 3,000 MG in 0.9 % SODIUM CHLORIDE 100 ML IV SCH (22:20)
[2020-03-11] MEDS: HEPARIN SODIUM (PORCINE) 7,500 UNITS in SYRINGE 0 ML SQ SCH (23:06)
[2020-03-12] MEDS: LACTATED RINGER'S 1,000 ML IV SCH ×6 (00:22→22:32)
[2020-03-12] MEDS: HEPARIN SODIUM (PORCINE) 7,500 UNITS in SYRINGE 0 ML SQ SCH ×3 (04:25→21:12)
[2020-03-12] MEDS: AMPICILLIN/SULBACTAM SOD 3,000 MG in 0.9 % SODIUM CHLORIDE 100 ML IV SCH ×4 (04:25→22:32)
[2020-03-12 06:32] LABS: Hematocrit (blood only) 32.8 % (42-52); Hemoglobin 11.3 g/dL (14.0-18.0); Mean Corpuscular Hemoglobin 30.5 pg (25-34); Mean Corpuscular Hgb Conc 34.5 g/dL (32-36); Mean Corpuscular Volume 88.6 fL (80-100); Mean Platelet Volume 10.2 fL (7.4-10.4); Platelet Count 126 K/uL (130-400); RDW Coefficient of Variation 12.8 % (11.5-14.5); RDW Standard Deviation 41.3 fL (36.4-46.3); White Blood Count 5.22 K/uL (4.8-10.8)
[2020-03-12 07:03] LABS: Albumin Globulin Ratio 0.7 (0.9-2); Albumin Level 2.7 gm/dl (3.4-5.0); BUN Creatinine Ratio 8.4 (10-20); Bilirubin,Total 0.7 mg/dl (0.2-1); Calcium 8.7 mg/dl (8.5-10.1); Creatinine Clr Calc Pharmacy 152.1 ml/min; Est GFR (African American) 120.9; Est GFR (Non-African American) 104.3; Globulin 3.7 gm/dl (2.5-4.0); Potassium 3.8 mmol/L (3.5-5.1); Total Protein 6.4 gm/dl (6.4-8.2)
--- NOTE | 2020-03-12 08:05 | Surgery Progress Note ---
Date of Service March 12, 2020 Assessment & Plan (1) Cellulitis: This gentleman underwent a laparoscopic cholecystectomy cholangiogram on 02/20/2020 prior to the procedure he had an ERCP with stent placement for common bile duct stone the stent itself seem to be the in the cystic duct we were able to clip distal to that and avoid the stent postoperative patient did fine amylase done on 02/21/2020 was normal I saw the patient in the office on 03/01/2020 approximately 10 days postop where he was doing fine the trocar sites were healing well with the exception of the epigastric 1 he was complaining of some pain although there was no drainage and Steri-Strips were intact at that time he was tolerating a diet and denied any back pain Apparently on 03/10/2020 the patient developed little redness around the trocar sites on the right upper quadrant laterally did not call our office and went to the emergency room Work-up at this time revealed that he had an elevated lipase which is persistent but clinically is improved Regarding the cellulitis in the right upper quadrant trocar site that certainly can be managed as an outpatient with p.o. antibiotics and should not keep him in the hospital and will resolve without any issues Regarding the fluid collection in the pancreatic head that needs to be followed for possibility of developing an infected phlegmon We will leave up to GI when to remove the stent in the common bile duct Present on Admission?: Yes Subjective Sitting at the side of the bed without any complaints denies any constant back pain tolerating a diet no abdominal pain complaints Physical Exam Physical Exam: Patient is alert coherent the usual personal disposition very slow affect The abdomen is completely benign trocar sites are fine with the exception the latter right upper quadrant trocar as an area of cellulitis which is been marked by a pen the outline when he first came in and there is been no extension the area is approximately 1 and half centimeter by 4 cm in length central aspect there is a scab over the trocar site with no drainage (this was the site that we had a Frankie drain postoperatively) Results & Data Vital Signs (Past 12 Hours) Vital Signs Temp Pulse Pulse Pulse Resp BP Pulse Ox 03/12/20 07:17 36.5 C 62 16 147/81 H 94 03/11/20 23:01 36.9 C 62 14 163/71 H 95 03/11/20 20:27 58 L 58 L 154/74 H lab noted including the elevated lipase and normal white count PG Care Time/CCT Total # of Minutes Spent Total Time Spent with Patient: Total time spent is greater than 50% in coordination of care (as documented) at patient's floor/unit and/or counseling patient: Coding Level of Care Code None Diagnoses Cellulitis L03.90
[2020-03-12] MEDS: LABETALOL HCL 200 MG TAB PO SCH ×2 (08:35→21:19)
--- NOTE | 2020-03-12 10:56 | Gastroenterology Progress Note ---
Date of Service March 12, 2020 Assessment & Plan (1) S/P laparoscopic cholecystectomy: (2) Fluid collection of pancreas: (3) Pancreatitis: Pt is a 54 y/o male w hx of pancreatitis s/p ERCP and subsequently cholecystectomy, readmitted for cellulitis on surgical site. He was c/o upper abd pain and repeat CT abd/pelvis did show 5x3cm fluid collection in pancreas body and tail. Exam today benign w/o abd pain, n/v. - Advance diet as tolerated but keep at low fat - Obtain CT abd/pelvis in 2-3 week's time to re-eval pancreas fluid collection (WON vs pseudocyst). - GI to sign off; pls recall prn Admission and Anticipated Discharge Date Admission Date: March 10, 2020 Supervising Physician Co-Signing Physician Notes I performed a history and physical examination of the patient today, including specifically on physical exam - soft abdomen. I have discussed the patient's management with the advanced practitioner. Please refer to the nurse practitioner's note for the documented findings and plan of care. Pain resolved. Labs unremarkable. Fluid collection seems small. Advance diet as tolerated. Repeat CT scan in 2-3 weeks as OP, if collection is WON then plan for endoscopic drainage. Recall GI if needed. Subjective Pt w/o abd pain, n/v. Tolerating CL diet well. Had BM this AM LFT normalized. Lipase decreasing Review of Systems Review of Systems: All systems reviewed & are unremarkable except as noted in HPI & below Physical Exam Constitutional: + obese, well groomed, cooperative and comfortable Eyes: PERRL, conjunctivae normal, anicteric sclerae ENMT: external ear and nose normal, oropharynx normal Respiratory: normal respiratory effort, lungs clear to auscultation Cardiovascular: RRR, no murmur, no edema Gastrointestinal (Abdomen): normal bowel sounds, soft, nontender, no hepatosplenomegaly Skin: no rashes, warm and dry no jaundice Neurologic: Motor/Sensory: no asterixis Psychiatric: A+Ox3, euthymic affect Lymphatic: no lymphedema Results & Data ([facility]) Vital Signs (Past 12 Hours) Vital Signs Temp Pulse Pulse Resp BP Pulse Ox 03/12/20 08:34 58 L 149/88 H 03/12/20 07:17 36.5 C 62 16 147/81 H 94 03/11/20 23:01 36.9 C 62 14 163/71 H 95
--- NOTE | 2020-03-12 11:33 | Hospitalist Progress Note ---
Date of Service March 12, 2020 Assessment & Plan (1) Acute pancreatitis: CT a/p on admission showed persistent acute pancreatitis & interval development of an ill-defined 5.4 x 3.7 cm hypodense collection. Lipase was 800 on admission which is lower than his prior presentation, but higher than the christina of his last admission as well. - GI consulted -> Repeat CT in 2-3 weeks. - Advance diet as tolerated - IV abx -> Dapto & Unasyn today; will switch to Bactrim and Augmentin x 4 more days. (2) Wound, surgical, infected: Very mild cellulitis at the site of his drain after his lap haresh. Only started in the last 1-2 days prior to presentation. - Mild per surgery. - Did not improve with Zosyn, pointing to a possible mild MRSA infection. Will continue with current IV abx for now; switch to oral with MRSA coverage on discharge. (3) Hypertension: BP presently 150/80; likely somewhat worsened by stress. - Continue beta-ike (4) DVT prophylaxis: Heparin 7500 units Q12h Admission and Anticipated Discharge Date Admission Date: March 10, 2020 Subjective Improving today. Tolerating diet. Less left-sided cramping pain. Reports no fevers/chills, chest pain, shortness of breath. Physical Exam Constitutional: WD/WN, vitals as above + morbidly obese Eyes: EOM intact bilaterally; no conjunctival abnormality ENMT: external ear and nose normal, oropharynx normal Neck: trachea midline, no thyromegaly normal visual inspection Respiratory: normal respiratory effort, lungs clear to auscultation no respiratory distress Cardiovascular: RRR, no murmur, no edema Gastrointestinal (Abdomen): Inspection/Auscultation: + abdominal surgical incision (Several healed, one with mild redness and streaking improving); + abdomen abnormal to inspection Percussion/Palpation: abdomen soft; abdomen nontender, no guarding and abdomen not rigid Musculoskeletal: no cyanosis or clubbing, extremities motor strength 5/5 Skin: no rashes, warm and dry Neurologic: moves all extremities and awake Psychiatric: Orientation: alert, oriented to person and cooperative Results & Data Results & Data ([facility]) Vital Signs (Past 12 Hours) Vital Signs Temp Pulse Pulse Resp BP Pulse Ox 03/12/20 08:34 58 L 149/88 H 07/20/20 07:17 36.5 C 62 16 147/81 H 94 PG Care Time/CCT Total # of Minutes Spent Total Time Spent with Patient: Total time spent is greater than 50% in coor dination of care (as documented) at patient's floor/unit and/or counseling patient: Coding Level of Care Code 08458 Subseq Hosp Care Lvl 2 Diagnoses Acute pancreatitis K85.10 Acute pancreatitis complication: unspecified Pancreatitis type: biliary Wound, surgical, infected T81.49XA Hypertension I10 Hypertension type: essential hypertension DVT prophylaxis Z29.9 (1) Acute pancreatitis Acute pancreatitis complication: unspecified Pancreatitis type: biliary Qualified Code(s): K85.10 - Biliary acute pancreatitis without necrosis or infection (2) Hypertension Hypertension type: essential hypertension Qualified Code(s): I10 - Essential (primary) hypertension
[2020-03-12] MEDS: DAPTOmycin 375 MG in SYRINGE 0 ML IV SCH (19:53)
[2020-03-13] MEDS: LACTATED RINGER'S 1,000 ML IV SCH ×3 (03:26→14:19)
[2020-03-13] MEDS: AMPICILLIN/SULBACTAM SOD 3,000 MG in 0.9 % SODIUM CHLORIDE 100 ML IV SCH ×2 (04:38→11:07)
[2020-03-13 06:29] LABS: Hematocrit (blood only) 32.7 % (42-52); Hemoglobin 11.2 g/dL (14.0-18.0); Mean Corpuscular Hemoglobin 30.1 pg (25-34); Mean Corpuscular Hgb Conc 34.3 g/dL (32-36); Mean Corpuscular Volume 87.9 fL (80-100); Mean Platelet Volume 10.2 fL (7.4-10.4); Platelet Count 130 K/uL (130-400); RDW Coefficient of Variation 12.7 % (11.5-14.5); RDW Standard Deviation 41.3 fL (36.4-46.3); Red Blood Count 3.72 M/uL (4.7-6.1); White Blood Count 5.13 K/uL (4.8-10.8)
[2020-03-13 06:50] LABS: Albumin Level 2.8 gm/dl (3.4-5.0); BUN Creatinine Ratio 4.6 (10-20); Calcium 8.9 mg/dl (8.5-10.1); Creatinine Clr Calc Pharmacy 152.1 ml/min; Est GFR (African American) 120.9; Est GFR (Non-African American) 104.3; Magnesium 1.9 mg/dl (1.8-2.4); Potassium 3.6 mmol/L (3.5-5.1)
[2020-03-13 06:53] LABS: Albumin Globulin Ratio 0.7 (0.9-2); Bilirubin,Total 0.7 mg/dl (0.2-1); Globulin 3.8 gm/dl (2.5-4.0); Total Protein 6.6 gm/dl (6.4-8.2)
--- NOTE | 2020-03-13 07:49 | Surgery Progress Note ---
Date of Service March 13, 2020 Assessment & Plan (1) Cellulitis: From my point of view the patient can be discharged we will be glad to see him in the office if no issues arise the cellulitis will resolve with the antibiotics p.o. for approximately 10 days total No restriction on his activity he can shower As stated return to our office on a as needed basis Present on Admission?: Yes Subjective Patient sitting on the side of bed ready to go home denies any pain Physical Exam Physical Exam: The limited small cellulitis around the right upper quadrant lateral trocar site is less intense there is no drainage from the trocar site itself does have a scab in the area his abdomen is completely benign He is complaining some abdominal wall pain towards the right lower quadrant there is a little ecchymosis there probably from the heparin shot Results & Data Vital Signs (Past 12 Hours) Vital Signs Temp Pulse Pulse Resp BP Pulse Ox 03/13/20 07:06 36.8 C 67 16 154/84 H 95 03/12/20 23:08 36.6 C 67 16 123/73 95 PG Care Time/CCT Total # of Minutes Spent Total Time Spent with Patient: Total time spent is greater than 50% in coordination of care (as documented) at patient's floor/unit and/or counseling patient: Coding Level of Care Code 82788 Subseq Hosp Care Lvl 3 Diagnoses Cellulitis L03.90
[2020-03-13] MEDS: HEPARIN SODIUM (PORCINE) 7,500 UNITS in SYRINGE 0 ML SQ SCH (08:40)
[2020-03-13] MEDS: LABETALOL HCL 200 MG TAB PO SCH (08:43)
--- NOTE | 2020-03-13 18:50 | Discharge Summary ---
Date of Service March 13, 2020 Admission HPI Per Admitting Provider Mr. Cox is a pleasant 54yo M w/ hx of gallstone pancreatitis and HTN who presents with continued epigastric and LUQ pain as well as small surgical site infection. Mr. Cox was in the hospital ~3 weeks ago due to pancreatitis from a gallstone. At that admission, he had an ERCP with CBD stone removal and stent placed, as well as a lap haresh. He was discharged, but notes that he has continued to have some LUQ and back pain along with continued "gas" that occurs when he puts pressure on the epigastric region. This occurs mostly with sitting up (in the car) or laying on his left side. Since his discharge, he has been lying on his back on his right side which reduces the pain. He does not note a lot of pain after eating, though he reports occasionally having heart burn for which his PCP recommended taking Mylanta. He did this yesterday which seemed to help. He also notes that one of the sites of his lap haresh surgery (specifically his drain site) has become more red over the last 2 days. The other sites have healed well, but this one is bigger due to the drain being present for several days and just in the last 2 days has become redder with some mild streaks noted. He denies any fevers/chills, or any other systemic symptoms. Principal Diagnosis Pancreatitis Discharge Exam Constitutional WD/WN, vitals as above + morbidly obese Eyes EOM intact bilaterally; no conjunctival abnormality ENMT external ear and nose normal, oropharynx normal Neck trachea midline, no thyromegaly normal visual inspection Respiratory normal respiratory effort, lungs clear to auscultation no respiratory distress Cardiovascular RRR, no murmur, no edema Gastrointestinal (Abdomen) Inspection/Auscultation: + abdominal surgical incision (Several healed, one with mild redness and streaking improving); + abdomen abnormal to inspection Percussion/Palpation: abdomen soft; abdomen nontender, no guarding and abdomen not rigid Musculoskeletal no cyanosis or clubbing, extremities motor strength 5/5 Skin no rashes, warm and dry Neurologic moves all extremities and awake Psychiatric Orientation: alert, oriented to person and cooperative Discharge Data Allergies Allergy/AdvReac Type Severity Reaction Status Date / Time Bactrim Allergy Intermediate RASH Unverified 10/22/17 09:50 sulfamethoxazole Allergy Intermediate RASH Verified 03/10/20 14:21 trimethoprim Allergy Intermediate RASH Verified 03/10/20 14:21 cephalexin Allergy Mild RASH Verified 03/10/20 14:21 oxycodone Allergy Unknown DIARRHEA,VO Verified 03/10/20 14:21 MITING, Consultations 03/10/20 16:41 ED Decision to Admit Stat 03/10/20 18:37 Consult Gastroenterology Routine 03/11/20 13:33 Consult General Surgery Routine Ordered Studies 03/10/20 14:22 CT abd pelvis IV con only Stat 03/10/20 18:37 MR MRCP Urgent Hospital Course (1) Acute pancreatitis: CT a/p on admission showed persistent acute pancreatitis & interval development of an ill-defined 5.4 x 3.7 cm hypodense collection. Lipase was 800 on admission which is lower than his prior presentation, but higher than the christina of his last admission as well. - GI consulted -> Repeat CT in 2-3 weeks. - Advance diet as tolerated -> Did well by discharge. - Discharged on another week of doxycycline and Augmentin for GI issue. (2) Wound, surgical, infected: Very mild cellulitis at the site of his drain after his lap haresh. Only started in the last 1-2 days prior to presentation. - Mild per surgery. - Did not improve with Zosyn, pointing to a possible mild MRSA infection. Improved with MRSA coverage, so also sent out on doxycycline. Can follow in surgery clinic if not improving. (3) Hypertension: BP presently 150/80; likely somewhat worsened by stress. - Continue beta-ike (4) DVT prophylaxis: Heparin 7500 units Q12h Total Time Total Time Spent Total Time Spent (In Minutes): 35 Discharge Plan Discharge Items Patient Disposition: Home - Self-Care Reason For Visit: PANCREATITIS Discharge Diagnosis: Pancreatitis Activity: Resume your previous activity Non-emergency contact: Primary Care Provider and General Science Teacher Call non-emergency contact if: your symptoms worsen Follow-up/Referrals: Celestine Omalley [Physician] - 03/16/20 2:30 pm (Please see the GI doctors in their office in 2 weeks for follow-up of your pancreatitis.) Shi Gunn CRNP [Primary Care Provider] - Diet: Low Fat Addtl Attending Provider Instructions: Please avoid: Fried food Fast food Pizza Potato chips and other processed snacks [place] powder and pepper (white, black, cayenne) Fatty meats such as zuñiga and sausage Cheese Foods that can cause heartburn include: Tomato-based sauces Watson fruits Chocolate Peppermint Carbonated beverages For gas, please avoid high-fiber foods that can cause belching or gas pain. Please take your antibiotics until they are gone. The first dose should be tonight before bedtime. Pending Studies at Discharge: No Stand-Alone Forms: My [facility], Smoking Cessation Medications and DC Order Prescriptions: New doxycycline hyclate 100 mg capsule 100 mg PO BID 7 Days Qty: 14 RF: 0 amoxicillin-pot clavulanate [Augmentin] 875-125 mg tablet 1 tab PO BID Qty: 14 RF: 0 Continued labetalol 100 mg tablet 200 mg PO BID RF: 0 furosemide 20 mg tablet 20 mg PO DAILY RF: 0 multivitamin Tablet 1 tab PO QAM RF: 0 aspirin [Aspir-81] 81 mg Tablet,Delayed Release (Dr/Ec) 81 mg PO QAM RF: 0 Discontinued cholestyramine (with sugar) [Questran] 4 gram powder 4 gm PO DAILY Qty: 378 RF: 0 Discharge Orders: Discharge Order (Routine); Ordered 03/13/20 Ordered By: Diallo Galindo/Other Patient Handouts: Low-Fiber Diet Admission Data Admit Date/Time: 03/10/20 16:54 Attending Provider: Diallo Lozano Admit Provider: Diallo Lozano Primary Care Provider: Shi Gunn Other Providers: Diallo Lozano ; Raymundo Whyte ; Lupe Omalley Other Interventions: Discharge Summary Assessment (RN) Last Done: 03/13/20 13:58 DC Date/Time DO NOT enter until pt leaves facility: 03/13/20 15:59 Coding Level of Care Code D/C Day Management >30 mins Diagnoses Acute pancreatitis K85.10 Acute pancreatitis complication: unspecified Pancreatitis type: biliary Wound, surgical, infected T81.49XA Hypertension I10 Hypertension type: essential hypertension DVT prophylaxis Z29.9
--- NOTE | 2020-03-22 11:30 | Coding Query ---
CODING QUERY To promote full compliance with coding requirements relating to patient care, provider participation is requested in all cases of head wrestling coach uncertainty. Please assist us with the question(s) below: Coding Question(s): There is documentation throughout the record of a developing fluid collection anterior to the pancreas s/p ercp/stent x 2 and lap cholecystectomy with documentation on GI Consultation of, "Fluid collection of pancreas: benign fluid collection, possible developing pseudocyst. No evidence for infection of it. his abdominal pains have improved on aggressive hydration. on abx for cellulitis.", and documentation on GI Progress Note on 03/12 of, "Obtain CT abd/pelvis in 2-3 week's time to re-eval pancreas fluid collection (WON vs pseudocyst)", and documentation on Surgery Progress Note 03/12 of, "Regarding the fluid collection in the pancreatic head that needs to be followed for possibility of developing an infected phlegmon". Please clarify below, in your clinical opinion regarding the fluid collection anterior to the pancreas. ( )likely a Developing Infected Phlegmon ( ) likely a postoperative complication ( ) Not likely a postoperative complication ( ) Other: Please Specify ( ) likely a pseudocyst ( ) likely a postoperative complication ( ) Not likely a postoperative complication ( ) Other: Please Specify ( ) likely Other: Please Specify ( ) likely a postoperative complication ( ) Not likely a postoperative complication ( ) Other: Please Specify ( x ) Fluid Collection Unspecified ( ) likely a postoperative complication ( x ) Not likely a postoperative complication -> Unclear what will develop, but at the time of discharge, it was not classifiable. ( ) Other: Please Specify Physician's Response(s): Thank you Anjelica Nelson Principal Diagnosis: "that condition established after study, to be chiefly responsible for occasioning the admission of the patient to the hospital for care." Co-Existing Principal Diagnosis: "when two or more diagnoses equally meet the criteria for principal diagnosis as determined by the circumstances of admission, diagnostic work up, and/or therapy provided, and the Alphabetic Index, Tabular List, or another coding guideline does not provide sequencing direction, any one of the diagnoses may be sequenced first." "When the physician has documented what appears to be a current diagnosis in the body of the record, but has not included the diagnosis in the final diagnostic statement, the physician should be asked whether the diagnosis should be added." (Source Coding Clinic 2 QTR90. p3-4) ARMANDO
== END 2020-03-13 15:59 | disposition home or self-care (01) | DRG 862 ==
LOC: ED 13:05 → 3W 16:54 → SUATTDRO 16:54 → 3W 17:37